=== PATIENT | male | born 1935 | race Caucasian/White ===

== ENCOUNTER 2016-06-02 03:07 | Inpatient (IN) ==
--- NOTE | 2016-06-02 03:25 | Emergency Department Note ---
IEsperanza Kasabria, am scribing for, and in the presence of, Dileep Acosta MD 03:18. Dave Restrepo Robert M, MD, personally performed the services described in this documentation, ascribed by Deep Mata in my presence, and it is both accurate and complete 324 . Arrival - Arrival Stated Complaint: resp failure Limitations: Altered Mental Status (intubated ) Source: Patient, RN Notes Reviewed - History of Present Illness HPI Narrative: This is a 81 y/o white male presenting to the ED as a transfer from [facility] for higher care with respiratory failure and pneumonia. Pt is intubated and nonverbal. His PMHx is consistent with gout and CHF. Consistency: constant Severity: moderate Review of System - Review of System ROS unobtainable: due to endotracheal tube (limited ) 12 point system: reviewed and no additional remarkable complaints except as stated - Review of System Constitutional: Absent: fever Respiratory: Present: respiratory distress (intubated ) Skin: Absent: rash Allergic/Immunologic: Absent: facial swelling Exam Vital Signs: Vital Signs Temperature 97.1 F L 06/02/16 03:08 Pulse Rate 104 H 06/02/16 03:20 Respiratory Rate 13 06/02/16 03:20 Blood Pressure 101/62 06/02/16 03:08 O2 Sat by Pulse Oximetry 100 06/02/16 03:08 - General General appearance: in distress - Head Head exam: Present: atraumatic, normocephalic, normal inspection - ENT ENT exam: Present: normal exam, normal oropharynx, mucous membranes moist, TM's normal bilaterally, normal external ear exam - Neck Neck exam: Present: normal inspection, full ROM, trachea midline. Absent: tenderness - Respiratory Respiratory exam: Present: normal lung sounds bilaterally - Cardiovascular Cardiovascular exam: Present: regular rate, normal rhythm, normal heart sounds - Neurological Exam Neurological exam: Absent: alert, oriented X3 - Skin Skin exam: Present: warm, dry, intact, normal color. Absent: rash Course - Consultations Consultation #1: Dr. Maureen Canales was paged and will admit the patient to the hospitalist service. Time: 03:24 Disposition Clinical Impression: Respiratory failure, Right lower lobe pneumonia Case discussed with: patient Disposition: Still a Patient Condition: Guarded Time of Disposition: 03:25
[2016-06-02 03:32] LABS: ABG Base Excess -4.5 MMOL/L (-2.5-2.5); ABG HCO3 24.5 MMOL/L (20-26); ABG Oxygen Saturation 99.1 % (95-100); ABG PCO2 62.9 MM HG (35-48); ABG PO2 281.2 MM HG (80-95); ABG TCO2 26.5 MMOL/L (23-27)
[2016-06-02 03:34] LABS: ABG PH 7.209 (7.35-7.45)
[2016-06-02] MEDS ORDERED: PROPOFOL 1,000 MG/100 ML BOTTLE IV ONE ×2 (03:45→05:54)
[2016-06-02] MEDS ORDERED: VECURONIUM 10 MG VIAL IV ONE (03:45)
[2016-06-02] MEDS ORDERED: SODIUM CHLORIDE 0.9% 1,000 ML IV STA (03:51)
[2016-06-02] MEDS ORDERED: VECURONIUM 10 MG VIAL IV STA (03:51)
[2016-06-02] MEDS ORDERED: ACETAMINOPHEN 325 MG TABLET PO PRN (04:03)
--- NOTE | 2016-06-02 04:10 | Hospitalist History & Physical ---
Assessment and Plan - Time spent with patient Time spent with patient: Greater than 30 minutes (1) Right lower lobe pneumonia Status: Acute Assessment and plan: right lower lobe pneumonia noted on chest x-ray. Patient started on Levaquin and Azactam. Follow-up sputum culture and blood cultures. Urine streptococcal antigen ordered. Current Visit: Yes Qualifiers: Pneumonia type: due to unspecified organism Qualified Code(s): J18.1 - Lobar pneumonia, unspecified organism (2) Respiratory failure Status: Acute Current Visit: Yes Qualifiers: Chronicity: acute on chronic Respiratory failure complication: hypoxia Qualified Code(s): J96.21 - Acute and chronic respiratory failure with hypoxia (3) SAIMA (acute kidney injury) Status: Acute Assessment and plan: Likely secondary to pneumonia and prerenal azotemia with dehydration. IV fluids ordered. Current Visit: Yes (4) COPD (chronic obstructive pulmonary disease) Status: Chronic Assessment and plan: Chronic emphysema and chronic respiratory failure on home oxygen at 2 L/min. 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 Follows up with primary care physician in [place]. Duo nebs and antibiotics ordered will add steroids. Current Visit: Yes (5) Dementia Status: Chronic Current Visit: Yes Qualifiers: Dementia type: Alzheimer's disease Alzheimer's disease onset: early-onset Dementia behavioral disturbance: without behavioral disturbance Qualified Code(s): G30.0 - Alzheimer's disease with early onset; F02.80 - Dementia in other diseases classified elsewhere without behavioral disturbance (6) Protein-calorie malnutrition, moderate Status: Chronic Current Visit: Yes (7) HTN (hypertension) Status: Chronic Current Visit: Yes Qualifiers: Hypertension type: essential hypertension Qualified Code(s): I10 - Essential (primary) hypertension (8) Hypothyroid Status: Acute Current Visit: Yes Qualifiers: Hypothyroidism type: acquired Qualified Code(s): E03.9 - Hypothyroidism, unspecified History of Present Illness Chief complaint: Acute respiratory failure History of present illness: Mr. Oconnell is a 81 year old male transferred to the emergency department [facility] from [facility] with acute respiratory failure requiring intubation and mechanical ventilation. The patient is found to have a right lower lobe pneumonia on chest x-ray. His blood work and imaging was reviewed from [facility] emergency room. He is being admitted to the hospitalist service to the intensive care unit for continued ventilator management and pulmonary support and treatment of his right lower lobe pneumonia. I was unable to find any old records in our computer system. The patient is unable to provide any history due to endotracheal intubation and mechanical ventilation. His daughter and granddaughter were in the ER and provided most of the history. Patient's daughter is his primary caregiver and his surrogate decision maker and power of blower room attendant. She reports that Mr. Oconnell has a history of dementia, emphysema, hypertension, hypothyroidism. She reports that he has been having trouble breathing over the last several days and having fever and chills with cold sweats. She had been giving him his regular breathing treatments including albuterol and Spiriva at home. The patient has a history of chronic respiratory failure on oxygen at 2 L/min at all times. This evening his respirations became more labored and he was brought to the emergency department in [place] where he was found to have right lower lobe pneumonia and acute respiratory failure requiring intubation. Sputum production is noted in the ET tube and suction. An endotracheal aspirate has been sent for culture. The patient is intubated and sedated and appears comfortable at this time. Home medication list is not available at this time however it will be collected from the [facility] pharmacy in [place]. Allergies Allergy/AdvReac Type Severity Reaction Status Date / Time No Known Allergies Allergy Unverified 06/02/16 03:19 Medical,Surgical,& Family Hx - Medical History Cardio: History of: Hypertension Endocrine: History of: Thyroid Disorder Rheumatology: History of;: Gout Respiratory: History of: COPD (Emphysema), Respiratory Problems - Surgical History HEENT Surgeries: Surgical HX of: Thyroid Surgery - Family History Family History: Reports;: Family Hypertension - Social History Smoking Status: Unknown if ever smoked Frequency of Alcohol Use: Unknown Type of Drug Use: Unknown Marital Status: Lives With:: Children Functional capacity: independent ambulation ROS unobtainable: due to endotracheal tube Exam - Constitutional Vitals: Period Temp Pulse Resp BP Sys/Grimes Pulse Ox Last 24 Hr 97.1 F-97.1 F 104-104 12-13 101-101/62-62 100 Exam: Constitutional System: Mild distress. No tremulousness. Intubated and sedated. Patient is a thin and frail-appearing Head: Normocephalic, atraumatic. Ears, Nose and Throat System: No pain or tenderness. No epistaxis or discharge. ET tube in place Eyes System: Pupils equal, round, and reactive. Extraocular muscles intact. Neck: Supple, without adenopathy, No jugular venous distention. No thyromegaly, neck mass, or prior surgery apparent. Respiratory System: Chest with rhonchi in the right lower lobe to auscultation. Cardiovascular System: Heart with regular rate and rhythm. No murmur. GI System: Abdomen soft, nontender. Normo active bowel sounds present. Musculoskeletal System: limbs with no pedal edema. Full distal pulses. Neurological System: Unable to assess secondary to intubation and sedation Psychiatric System: Conversation is not possible due to intubation Results - Labs CBC & BMP: 06/02/16 03:18 06/02/16 03:18 Lab Results: I have reviewed the past 24 hour labs - Diagnostic Findings Procedure: Chest x-ray: image reviewed by me
[2016-06-02 04:23] LABS: Basophils # 0.1 10*3/uL (0.0-0.2); Basophils % 0.7 % (0.0-0.8); Eosinophils # 0.1 10*3/uL (0.0-0.87); Hematocrit 44.9 VOL% (42.0-52.0); Hemoglobin 14.7 GM/DL (14.0-18.0); Immature Granulocytes % 0.4 %; Immature Granulocytes Absolute 0.03 #; Lymphocytes # 0.9 10*3/uL (1.4-4.0); Lymphocytes % 13.3 % (21.2-54.2); Mean Corpuscular HGB Conc 32.7 GM/DL (32-36); Mean Corpuscular Hemoglobin 30 PG (27-34); Mean Corpuscular Volume 92.4 FL (87-102); Mean Platelet Volume 10.5 FL (9.6-12.0); Monocytes # 0.6 10*3/uL (0.11-0.8); Monocytes % 9.3 % (1.7-12.7); Neutrophils % 75.3 % (38.7-73.9); Platelet Count 161 T/CUMM (130-400); Red Blood Count 4.86 MC/CUMM (3.8-5.5); Red Cell Distribution Width 15.9 % (9.3-17.3); White Blood Count 6.7 T/CUMM (4-12)
[2016-06-02 04:24] LABS: Apearance,Urine CLEAR (Clear); Bacteria,Urine Occasional /HPF (Few); Bilirubin,Urine Negative (Negative); Blood, Urine Moderate mg/dL (Negative); Glucose,Urine (UA) Negative (Negative); Ketones,Urine Negative (Negative); Nitrite,Urine Negative (Negative); Protein,Urine 30 MG/DL; RBC,Urine 4 /HPF (0-4); Squamous Epithelial Cell,Urine Occasional /HPF (0-10); Urine Color Yellow (Yellow); Urine Specific Gravity 1.015 (1.001-1.035); WBC,Urine 1 /HPF (0-6)
[2016-06-02 04:32] LABS: Albumin 2.8 G/DL (3.4-5.0); Calcium 7.7 MG/DL (8.5-10.1); Magnesium 2.1 MG/DL (1.8-2.4); Osmolality,Calculated 308.3 MOS/KG (273-304); Total Protein 5.7 G/DL (6.4-8.3)
[2016-06-02] MEDS ORDERED: AZTREONAM 2,000 MG in SODIUM CHLORIDE 0.9% 100 ML IV ONE ×2 (05:00→08:00)
[2016-06-02] MEDS: PROPOFOL 1,000 MG/100 ML BOTTLE IV SCH ×2 (05:00→18:25)
[2016-06-02 05:01] LABS: Band Neutrophils 14 % (0-10); Eosinophils 1 % (0-10); Lymphocytes 15 % (20-55); Segmented Neutrophils 65 % (50-85); Total Cells Counted 100
[2016-06-02 05:02] LABS: Hypochromasia 1+; Platelet Estimate Normal
[2016-06-02] MEDS: DEXTROSE 5% NACL 0.45% 1,000 ML IV SCH ×4 (05:45→21:12)
[2016-06-02] MEDS ORDERED: LORazepam 2 MG/1 ML VIAL IV PRN (05:54)
[2016-06-02] MEDS: LEVOFLOXACIN INJ 750 MG in PREMIX 1 EACH IV SCH (05:54)
[2016-06-02] MEDS: methylPREDNISolone SOD SUC 125 MG/2 ML VIAL IV SCH ×3 (06:43→21:13)
[2016-06-02] MEDS ORDERED: GLUCAGON 1 MG VIAL IM PRN (06:54)
--- NOTE | 2016-06-02 07:08 | XRay Report ---
XR chest 1V portable Indication: Tube placement Comparison: 02 June 2016 at 1:40 AM Findings: The heart and mediastinum are similar in size and configuration. Endotracheal tube is unchanged in position The pulmonary vascularity is increased especially centrally. There is increased right upper lung and right lower lung densities when compared to previous exam. No other lung infiltrates, effusions, pneumothorax or other abnormality is demonstrated. Impression: Stable appearance of endotracheal tube. Increased to the right upper lung and right lower lung density could indicate atelectasis or infiltrate. PROCEDURE INTERPRETED AT [facility] DEPARTMENT OF RADIOLOGY Final Report Signed by: Dr. Julio Pena
[2016-06-02] MEDS: ALBUTEROL/IPRATROPIUM 3 ML NEB RESP TX SCH ×3 (07:31→19:35)
--- NOTE | 2016-06-02 07:38 | Pulmonology Consult Note ---
Assessment and Plan (1) Respiratory failure Status: Acute Assessment and plan: Patient has had CO2 retention and was intubated on the ventilator now. Current Visit: Yes Qualifiers: Chronicity: acute on chronic Respiratory failure complication: hypoxia Qualified Code(s): J96.21 - Acute and chronic respiratory failure with hypoxia (2) Right lower lobe pneumonia Status: Acute Assessment and plan: The patient has right lower lobe consolidation and is on IV antibiotics. Current Visit: Yes Qualifiers: Pneumonia type: due to unspecified organism Qualified Code(s): J18.1 - Lobar pneumonia, unspecified organism (3) SAIMA (acute kidney injury) Status: Acute Assessment and plan: His creatinine is up to 2.6. Current Visit: Yes (4) COPD (chronic obstructive pulmonary disease) Status: Chronic Assessment and plan: Patient looks like he has severe COPD. Current Visit: Yes (5) Dementia Status: Chronic Assessment and plan: Patient has a history of dementia Current Visit: Yes Qualifiers: Dementia type: Alzheimer's disease Alzheimer's disease onset: early-onset Dementia behavioral disturbance: without behavioral disturbance Qualified Code(s): G30.0 - Alzheimer's disease with early onset; F02.80 - Dementia in other diseases classified elsewhere without behavioral disturbance (6) Protein-calorie malnutrition, moderate Status: Chronic Assessment and plan: The patient will require supplemental nutrition. Current Visit: Yes (7) HTN (hypertension) Status: Chronic Assessment and plan: Patient has a history of hypertension. Current Visit: Yes Qualifiers: Hypertension type: essential hypertension Qualified Code(s): I10 - Essential (primary) hypertension (8) Hypothyroid Status: Acute Assessment and plan: Patient will continue thyroid replacement. Current Visit: Yes Qualifiers: Hypothyroidism type: acquired Qualified Code(s): E03.9 - Hypothyroidism, unspecified History of Present Illness Chief complaint: Ventilator management History of present illness: Mr. Oconnell is a 81 year old white male that apparently has a long history of COPD and went to the hospital at [facility] and was found to be in respiratory failure and was intubated. He was felt to have a pneumonia. Apparently he had been short of breath and having some congestion for several days. According to his family he has a history of significant COPD and dementia along with hypertension and hypothyroidism. He apparently has home oxygen. It is unclear about any other medicines. He is now intubated and on the ventilator. Allergies Allergy/AdvReac Type Severity Reaction Status Date / Time No Known Allergies Allergy Unverified 06/02/16 03:19 ROS unobtainable: due to endotracheal tube (He is unable to give any history) Exam (Pulmonay) H&P - Constitutional Vitals: Period Temp Pulse Resp BP Sys/Grimes Pulse Ox Last 24 Hr 85-93 15-29 89-110/57-65 98-100 General appearance: no acute distress (Patient is sedated on the ventilator), cachectic - Head Head exam: Present: normal inspection, normocephalic - Eye Eye exam: Present: EOMI, other (He has bilateral arcus). Absent: scleral icterus Pupils: Present: JOZEF - ENT ENT exam: Present: normal exam, other (ET tube is in good position) - Neck Neck exam: Absent: tenderness, thyromegaly - Respiratory Respiratory exam: Present: decreased breath sounds, prolonged expiratory phase, rhonchi - Cardiovascular Cardiovascular exam: Present: regular rate and rhythm, tachycardia - GI/Abdominal GI/Abdominal exam: Present: hypoactive bowel sounds, soft. Absent: organomegaly , tenderness - Extremities Exam Extremities exam: Absent: calf tenderness, edema - Neurological Exam Neurological exam: Present: other (Sedated on the ventilator) - Skin Skin exam: Present: warm, dry Medical,Surgical,& Family Hx - Medical History Cardio: History of: Hypertension Endocrine: History of: Thyroid Disorder Rheumatology: History of;: Gout Respiratory: History of: COPD (Emphysema), Respiratory Problems - Surgical History HEENT Surgeries: Surgical HX of: Thyroid Surgery - Family History Family History: Reports;: Family Hypertension - Social History Smoking Status: Former smoker Frequency of Alcohol Use: Unknown Type of Drug Use: Unknown Results - Labs CBC & BMP: 06/02/16 03:18 06/02/16 03:18 Labs: PO2 is 281 with a PCO2 of 62 and a pH of 7.2 - Diagnostic Findings Procedure: Chest x-ray: image reviewed by me, report reviewed by me (Chest x- ray shows severe COPD changes with some infiltrates in the bases)
--- NOTE | 2016-06-02 09:14 | EKG Report ---
Stationary ECG Study [facility] ER Test Date: 06/02/2016 3:29:04 AM Pat Name: MARYBETH GUERRA Department: Room: 105 Gender: M Pasting Inspector: : 1935 Requested by: Dileep Acosta Order Number: [id number] Reading MD: BEN CLAYTON Intervals [place] Rate: 100 P: 79 IN: 199 QRS: -30 QRSD: 100 T: 76 QT: 380 QTc: 437 Interpretive Statements SINUS TACHYCARDIA POSSIBLE ANTERIOR MYOCARDIAL INFARCTION, PROBABLY OLD IF PRESENT Electronically Signed On 06-07-16 10:45:01 CDT by BEN CLAYTON [email or web address]
[2016-06-02] MEDS: POTASSIUM CHLORIDE 20 MEQ/15 ML UDCUP PER TUBE SCH ×3 (09:30→18:24)
[2016-06-02] MEDS: ENOXAPARIN 30 MG/0.3 ML SYRINGE SUBCUT SCH (09:42)
[2016-06-02 09:56] LABS: ABG Base Excess -7.1 MMOL/L (-2.5-2.5); ABG HCO3 18.7 MMOL/L (20-26); ABG Oxygen Saturation 92.6 % (95-100); ABG PCO2 33.4 MM HG (35-48); ABG PH 7.336 (7.35-7.45); ABG PO2 62.3 MM HG (80-95); ABG TCO2 15.4 MMOL/L (23-27)
[2016-06-02] MEDS: DESITIN 4OZ/NYSTATIN 15 GRAM MIXTURE PASTE TOP SCH ×2 (12:36→21:13)
[2016-06-02] MEDS: AZTREONAM 1,000 MG in SODIUM CHLORIDE 0.9% 100 ML IV SCH ×2 (14:35→21:12)
[2016-06-03] MEDS: ALBUTEROL/IPRATROPIUM 3 ML NEB RESP TX SCH ×4 (00:14→19:19)
[2016-06-03] MEDS: DEXTROSE 5% NACL 0.45% 1,000 ML IV SCH ×6 (01:39→17:47)
[2016-06-03] MEDS: AZTREONAM 1,000 MG in SODIUM CHLORIDE 0.9% 100 ML IV SCH ×4 (01:39→20:42)
[2016-06-03 03:57] LABS: ABG Base Excess -5.1 MMOL/L (-2.5-2.5); ABG HCO3 20.3 MMOL/L (20-26); ABG Oxygen Saturation 99.6 % (95-100); ABG PCO2 37.4 MM HG (35-48); ABG TCO2 17.8 MMOL/L (23-27); Allen Test Positive; Pt O2 Delivery Device Ventilator
[2016-06-03 04:11] LABS: Basophils % 0.3 % (0.0-0.8); Eosinophils % 0.1 % (0.00-10.9); Hematocrit 38.5 VOL% (42.0-52.0); Immature Granulocytes % 1.1 %; Immature Granulocytes Absolute 0.13 #; Lymphocytes # 0.7 10*3/uL (1.4-4.0); Lymphocytes % 5.7 % (21.2-54.2); Mean Corpuscular HGB Conc 33.8 GM/DL (32-36); Mean Corpuscular Hemoglobin 30 PG (27-34); Mean Corpuscular Volume 87.9 FL (87-102); Monocytes # 0.5 10*3/uL (0.11-0.8); Monocytes % 3.9 % (1.7-12.7); Neutrophils # 10.3 10*3/uL (1.4-7.4); Neutrophils % 88.9 % (38.7-73.9); Platelet Count 155 T/CUMM (130-400); Red Blood Count 4.38 MC/CUMM (3.8-5.5); Red Cell Distribution Width 15.6 % (9.3-17.3); White Blood Count 11.5 T/CUMM (4-12)
[2016-06-03 04:39] LABS: Calcium 8.1 MG/DL (8.5-10.1); Osmolality,Calculated 296.8 MOS/KG (273-304); Potassium 3.6 MMOL/L (3.5-5.1)
[2016-06-03 05:13] LABS: Platelet Estimate Normal
[2016-06-03] MEDS: methylPREDNISolone SOD SUC 125 MG/2 ML VIAL IV SCH ×3 (06:15→22:28)
[2016-06-03] MEDS: POTASSIUM CHLORIDE 20 MEQ/15 ML UDCUP PER TUBE PRN ×2 (06:16→10:04)
[2016-06-03] MEDS: PROPOFOL 1,000 MG/100 ML BOTTLE IV SCH ×2 (06:25→20:40)
--- NOTE | 2016-06-03 07:50 | Pulmonology Progress Note ---
Pulmonary - PN: Subj Interval history: Patient is an 81-year-old white man that has a history of COPD and came in with respiratory distress and pneumonia. He was intubated and transferred here. He has been reasonably stable on the ventilator and his oxygen level has improved. He is sedated and comfortable on the ventilator now. He appears to have stable vital signs. He still has thick secretions in bilateral infiltrates. Will plan a therapeutic bronchoscopy today. Exam (Progress Note) - Constitutional Vitals: Period Temp Pulse Resp BP Sys/Grimes Pulse Ox Last 24 Hr 97.0 F-98.9 F 74-103 12-24 89-127/51-74 91-100 Exam: General appearance: no acute distress (Patient is sedated on the ventilator), cachectic. He does have stable vital signs. - Head Head exam: Present: normal inspection, normocephalic - Eye Eye exam: Present: EOMI, other (He has bilateral arcus). Absent: scleral icterus Pupils: Present: JOZEF - ENT ENT exam: Present: normal exam, other (ET tube is in good position) - Neck Neck exam: Absent: tenderness, thyromegaly - Respiratory Respiratory exam: Present: decreased breath sounds, prolonged expiratory phase, rhonchi. He does have better breath sounds. - Cardiovascular Cardiovascular exam: Present: regular rate and rhythm, tachycardia - GI/Abdominal GI/Abdominal exam: Present: hypoactive bowel sounds, soft. Absent: organomegaly , tenderness - Extremities Exam Extremities exam: Absent: calf tenderness, edema - Neurological Exam Neurological exam: Present: other (Sedated on the ventilator) - Skin Skin exam: Present: warm, dry Results - Labs CBC & BMP: 06/03/16 03:58 06/03/16 03:58 Labs: His PO2 is 151 with a PCO2 of 37 and pH of 7.34 - Diagnostic Findings Procedure: Chest x-ray: image reviewed by me, report reviewed by me (Chest x- ray still has bibasilar infiltrates.) Assessment and Plan (1) Respiratory failure Status: Acute Assessment and plan: Patient has had CO2 retention and was intubated on the ventilator now. His oxygenation is improving any stable on the ventilator. Current Visit: Yes Qualifiers: Chronicity: acute on chronic Respiratory failure complication: hypoxia Qualified Code(s): J96.21 - Acute and chronic respiratory failure with hypoxia (2) Right lower lobe pneumonia Status: Acute Assessment and plan: The patient has right lower lobe consolidation and is on IV antibiotics. He does have a lot of thick secretions and will proceed with a therapeutic bronchoscopy Current Visit: Yes Qualifiers: Pneumonia type: due to unspecified organism Qualified Code(s): J18.1 - Lobar pneumonia, unspecified organism (3) SAIMA (acute kidney injury) Status: Acute Assessment and plan: His creatinine has improved and is down to 1.5 today. Current Visit: Yes (4) COPD (chronic obstructive pulmonary disease) Status: Chronic Assessment and plan: Patient looks like he has severe COPD. Current Visit: Yes (5) Dementia Status: Chronic Assessment and plan: Patient has a history of dementia Current Visit: Yes Qualifiers: Dementia type: Alzheimer's disease Alzheimer's disease onset: early-onset Dementia behavioral disturbance: without behavioral disturbance Qualified Code(s): G30.0 - Alzheimer's disease with early onset; F02.80 - Dementia in other diseases classified elsewhere without behavioral disturbance (6) Protein-calorie malnutrition, moderate Status: Chronic Assessment and plan: The patient will require supplemental nutrition. Current Visit: Yes (7) HTN (hypertension) Status: Chronic Assessment and plan: Patient has a history of hypertension. He is hemodynamically stable. Current Visit: Yes Qualifiers: Hypertension type: essential hypertension Qualified Code(s): I10 - Essential (primary) hypertension (8) Hypothyroid Status: Acute Assessment and plan: Patient will continue thyroid replacement. Current Visit: Yes Qualifiers: Hypothyroidism type: acquired Qualified Code(s): E03.9 - Hypothyroidism, unspecified
--- NOTE | 2016-06-03 08:28 | Hospitalist Progress Note ---
Assessment and Plan (1) Respiratory failure Status: Acute Assessment and plan: The patient is admitted to the hospital with respiratory failure due to pneumonia. We continue the patient on IV antibiotics. The patient left therapeutic bronchoscopy today. We are continuing nutrition with tube feedings. Will recheck electrolytes arterial blood gas and CBC in the morning. Current Visit: Yes Qualifiers: Chronicity: acute on chronic Respiratory failure complication: hypoxia Qualified Code(s): J96.21 - Acute and chronic respiratory failure with hypoxia (2) Right lower lobe pneumonia Status: Acute Current Visit: Yes Qualifiers: Pneumonia type: due to unspecified organism Qualified Code(s): J18.1 - Lobar pneumonia, unspecified organism (3) COPD (chronic obstructive pulmonary disease) Status: Chronic Current Visit: Yes (4) Dementia Status: Chronic Current Visit: Yes Qualifiers: Dementia type: Alzheimer's disease Alzheimer's disease onset: early-onset Dementia behavioral disturbance: without behavioral disturbance Qualified Code(s): G30.0 - Alzheimer's disease with early onset; F02.80 - Dementia in other diseases classified elsewhere without behavioral disturbance (5) Protein-calorie malnutrition, moderate Status: Chronic Current Visit: Yes Hospitalist: Subjective Interval history: The patient is breathing comfortably on the ventilator. He is sedated, orally intubated, and mechanically ventilated. Dr. Martínez plans therapeutic bronchoscopy today. The patient's nurse states that he has had copious sputum production from the ET tube. The nurse states that tube feedings are well tolerated. Exam - Constitutional Vitals: Period Temp Pulse Resp BP Sys/Grimes Pulse Ox Last 24 Hr 97.8 F-98.9 F 74-103 12-22 89-127/51-74 91-100 Exam: Constitutional System: Mild distress. No tremulousness. The patient is orally intubated and mechanically ventilated. He is sedated with Diprivan Head: Normocephalic, atraumatic. Ears, Nose and Throat System: No evidence of Otitis or Mastoiditis. No epistaxis or discharge Eyes System: Pupils equal, round, and reactive. Extraocular muscles intact. Neck: Supple, without adenopathy, No jugular venous distention. No thyromegaly , neck mass, or prior surgery apparent. Respiratory System: Chest bilateral rhonchi to auscultation. Cardiovascular System: Heart with regular rate and rhythm. No murmur. GI System: Abdomen soft, nontender. Normo active bowel sounds present. Musculoskeletal System: limbs with no pedal edema. Full distal pulses. Results - Labs CBC & BMP: 06/03/16 03:58 06/03/16 03:58 Lab Results: I have reviewed the past 24 hour labs
--- NOTE | 2016-06-03 08:36 | XRay Report ---
History: Respiratory failure Date: 06/03/2016 Study: Chest x-ray AP portable Comparison exam: 06/02/2016 The endotracheal tube tip is nearing the ximena and can be safely withdrawn 1 cm. The nasogastric tubes well positioned. The cardiomediastinal silhouette is unchanged. There is continued patchy and hazy atelectasis/infiltrate in the lung bases. These changes are improved on the right and slightly increased on the left. There is continued patchy infiltrate in the right upper lung. There is at least mild bilateral pleural effusion, left more than right, as before. There is no pneumothorax. Osseous structures are unchanged. Impression: Continued bibasilar atelectasis/infiltrate, slightly increased on the left and slightly improved on the right PROCEDURE INTERPRETED AT [facility] DEPARTMENT OF RADIOLOGY Final Report Signed by: Dr. Bisi Wade
--- NOTE | 2016-06-03 10:00 | Operative Note ---
Date of procedure: 06/03/16 Pre-op diagnosis: Respiratory failure with bibasilar infiltrate Post-op diagnosis: other (Mucous plugging and retained secretions) Procedure: The patient is on the ventilator in the ICU. He has COPD with bibasilar infiltrates. A therapeutic bronchoscopy will be done to clear airways. The patient is sedated and comfortable on the ventilator. Procedure: The fiberoptic bronchoscope was passed through the ET tube into the airways. The airways were quickly identified and specimens obtained. Findings: The ET tube is in good position in the trachea. The main bronchi are open. There is some thick white mucus and plugs seen bilaterally that were washed and cleared. Washings were sent for culture. The right upper lobe, right middle lobe, right lower lobe are all open. The left upper lobe, left lower lobe, and lingula are open. There are no endobronchial lesions seen. There is some bronchitis present. Once the airways were clear the procedure was stopped. He tolerated the procedure well without problems. Impression: Mucous plugging and retained secretions with bibasilar infiltrate. Plan: We will continue weaning from the ventilator. Anesthesia: conscious sedation Surgeon / Physician: Amanuel Martínez Estimated blood loss: none Specimens: other (Washings were sent for culture) Condition: stable Disposition: ICU Results - Labs CBC & BMP: 06/03/16 03:58 06/03/16 03:58 Discharge Plan - Discharge Medications No Action Cholecalciferol (Vitamin D3) [Vitamin D3] 50,000 unit PO Q7DAY Zolpidem Tartrate 5 mg PO BEDTIME Clorazepate [Tranxene] 3.75 mg PO BID hydroCHLOROthiazide [Hydrochlorothiazide] 25 mg PO DAILY Folic Acid Tab 1 mg PO DAILY Donepezil [Aricept] 10 mg PO BEDTIME Levothyroxine Tab [Synthroid Tab] 75 mcg PO DAILY@0700 Venlafaxine HCl [Venlafaxine XR] 75 mg PO BID W/MEALS Quetiapine Fumarate 100 mg PO DAILY Omeprazole 40 mg PO DAILY amLODIPine [Norvasc] 5 mg PO DAILY Memantine HCl 10 mg PO BID Allopurinol 300 mg PO DAILY - Follow Up or Referral - Forms/Instructions
[2016-06-03] MEDS: ENOXAPARIN 30 MG/0.3 ML SYRINGE SUBCUT SCH (10:04)
[2016-06-03] MEDS: DESITIN 4OZ/NYSTATIN 15 GRAM MIXTURE PASTE TOP SCH ×2 (10:04→20:42)
[2016-06-04] MEDS: ALBUTEROL/IPRATROPIUM 3 ML NEB RESP TX SCH ×4 (00:49→19:22)
[2016-06-04] MEDS: DEXTROSE 5% NACL 0.45% 1,000 ML IV SCH ×6 (01:38→21:23)
[2016-06-04 02:55] LABS: ABG Base Excess -4.1 MMOL/L (-2.5-2.5); ABG HCO3 20.9 MMOL/L (20-26); ABG Oxygen Saturation 94.5 % (95-100); ABG PCO2 36.6 MM HG (35-48); ABG PH 7.361 (7.35-7.45); ABG PO2 68.2 MM HG (80-95); ABG TCO2 18.2 MMOL/L (23-27); Allen Test Positive; Pt O2 Delivery Device Ventilator
[2016-06-04] MEDS: AZTREONAM 1,000 MG in SODIUM CHLORIDE 0.9% 100 ML IV SCH ×4 (03:21→21:22)
[2016-06-04] MEDS: LEVOFLOXACIN INJ 750 MG in PREMIX 1 EACH IV SCH (04:21)
[2016-06-04 05:04] LABS: Basophils % 0.3 % (0.0-0.8); Hematocrit 39.1 VOL% (42.0-52.0); Hemoglobin 13.4 GM/DL (14.0-18.0); Immature Granulocytes % 6.7 %; Lymphocytes % 6.9 % (21.2-54.2); Mean Corpuscular HGB Conc 34.3 GM/DL (32-36); Mean Corpuscular Hemoglobin 31 PG (27-34); Mean Corpuscular Volume 89.1 FL (87-102); Mean Platelet Volume 11.1 FL (9.6-12.0); Monocytes # 0.7 10*3/uL (0.11-0.8); Monocytes % 4.8 % (1.7-12.7); NRBC # 0.03 10*3/uL; Neutrophils # 12.2 10*3/uL (1.4-7.4); Neutrophils % 81.3 % (38.7-73.9); Platelet Count 157 T/CUMM (130-400); Red Blood Count 4.39 MC/CUMM (3.8-5.5); Red Cell Distribution Width 15.9 % (9.3-17.3)
[2016-06-04 05:39] LABS: Magnesium 2.2 MG/DL (1.8-2.4); Osmolality,Calculated 292.1 MOS/KG (273-304); Potassium 3.9 MMOL/L (3.5-5.1)
[2016-06-04 05:42] LABS: Band Neutrophils 2 % (0-10); Lymphocytes 8 % (20-55); Myelocytes 1 %; Platelet Estimate Adequate; Segmented Neutrophils 83 % (50-85); Total Cells Counted 100
[2016-06-04] MEDS: POTASSIUM CHLORIDE 20 MEQ/15 ML UDCUP PER TUBE PRN (06:38)
[2016-06-04] MEDS: PROPOFOL 1,000 MG/100 ML BOTTLE IV SCH ×4 (06:38→23:18)
[2016-06-04] MEDS: methylPREDNISolone SOD SUC 125 MG/2 ML VIAL IV SCH ×3 (06:38→21:22)
--- NOTE | 2016-06-04 07:35 | XRay Report ---
XR chest 1V portable Indication: Shortness of breath Comparison: 03 June 2016 Findings: The heart and mediastinum are stable in size and configuration. The lines and tubes are unchanged in position. The pulmonary vascularity is normal in caliber. Faint areas of increased density are seen in the right upper lobe and right lower lung similar to previous. No other lung infiltrates, effusions, pneumothorax or other abnormality is demonstrated. Impression: No significant change PROCEDURE INTERPRETED AT [facility] DEPARTMENT OF RADIOLOGY Final Report Signed by: Dr. Julio Pena
--- NOTE | 2016-06-04 07:43 | Hospitalist Progress Note ---
Assessment and Plan (1) Respiratory failure Status: Acute Assessment and plan: The patient is admitted to the hospital with respiratory failure due to pneumonia. We continue the patient on IV antibiotics. We are continuing nutrition with tube feedings. Will recheck electrolytes arterial blood gas and CBC in the morning. Current Visit: Yes Qualifiers: Chronicity: acute on chronic Respiratory failure complication: hypoxia Qualified Code(s): J96.21 - Acute and chronic respiratory failure with hypoxia (2) Right lower lobe pneumonia Status: Acute Current Visit: Yes Qualifiers: Pneumonia type: due to unspecified organism Qualified Code(s): J18.1 - Lobar pneumonia, unspecified organism (3) COPD (chronic obstructive pulmonary disease) Status: Chronic Current Visit: Yes (4) Dementia Status: Chronic Current Visit: Yes Qualifiers: Dementia type: Alzheimer's disease Alzheimer's disease onset: early-onset Dementia behavioral disturbance: without behavioral disturbance Qualified Code(s): G30.0 - Alzheimer's disease with early onset; F02.80 - Dementia in other diseases classified elsewhere without behavioral disturbance (5) Protein-calorie malnutrition, moderate Status: Chronic Current Visit: Yes Hospitalist: Subjective Interval history: The patient is resting quietly on the ventilator today. He had bronchoscopy yesterday to clear secretions of mucous plugs. The patient is tolerating some CPAP trial. The patient appears to have withdrawn affect and prefers a position. Exam - Constitutional Vitals: Period Temp Pulse Resp BP Sys/Grimes Pulse Ox Last 24 Hr 97.2 F-98.4 F 50-96 12-24 99-152/52-101 91-100 Exam: Constitutional System: Mild distress. No tremulousness. The patient is orally intubated and mechanically ventilated. He is sedated with Diprivan Head: Normocephalic, atraumatic. Ears, Nose and Throat System: No evidence of Otitis or Mastoiditis. No epistaxis or discharge Eyes System: Pupils equal, round, and reactive. Extraocular muscles intact. Neck: Supple, without adenopathy, No jugular venous distention. No thyromegaly , neck mass, or prior surgery apparent. Respiratory System: Chest bilateral rhonchi to auscultation. Cardiovascular System: Heart with regular rate and rhythm. No murmur. GI System: Abdomen soft, nontender. Normo active bowel sounds present. Musculoskeletal System: limbs with no pedal edema. Full distal pulses. Results - Labs CBC & BMP: 06/04/16 04:45 06/04/16 04:45 Lab Results: I have reviewed the past 24 hour labs - Diagnostic Findings Procedure: Chest x-ray: image reviewed by me (Decreased infiltrates in the right middle and left upper lobes. Right lower lobe basilar infiltrate remains)
--- NOTE | 2016-06-04 08:00 | Pulmonology Progress Note ---
Pulmonary - PN: Subj Interval history: Patient is an 81-year-old white man that has a history of COPD and came in with respiratory distress and pneumonia. He was intubated and transferred here. He has been reasonably stable on the ventilator. He does have bibasilar infiltrates worse on the right. His sputum is growing gram-negative rods. He had a therapeutic bronchoscopy yesterday he still has a lot of secretions. His PO2 is only 68 on 50% today. He does get a little restless at times. He will continue with CPAP trials. His renal function is better with a creatinine of 1.2 Exam (Progress Note) - Constitutional Vitals: Period Temp Pulse Resp BP Sys/Grimes Pulse Ox Last 24 Hr 97.2 F-98.4 F 50-96 12-24 99-152/52-101 91-100 Exam: General appearance: no acute distress (Patient is sedated on the ventilator), cachectic. He does have stable vital signs. - Head Head exam: Present: normal inspection, normocephalic - Eye Eye exam: Present: EOMI, other (He has bilateral arcus). Absent: scleral icterus Pupils: Present: JOZEF - ENT ENT exam: Present: normal exam, other (ET tube is in good position) - Neck Neck exam: Absent: tenderness, thyromegaly - Respiratory Respiratory exam: Present: He has diminished breath sounds throughout but has fair air movement with some rhonchi bilaterally. - Cardiovascular Cardiovascular exam: Present: regular rate and rhythm, no murmur or gallop. - GI/Abdominal GI/Abdominal exam: Present: Normal bowel sounds, soft. Absent: organomegaly, tenderness - Extremities Exam Extremities exam: Absent: calf tenderness, edema - Neurological Exam Neurological exam: Present: other (Sedated on the ventilator) - Skin Skin exam: Present: warm, dry Results - Labs CBC & BMP: 06/04/16 04:45 06/04/16 04:45 Labs: PO2 is 68 on 50% oxygen. PCO2 is 36 with a pH of 7.36 Assessment and Plan (1) Respiratory failure Status: Acute Assessment and plan: Patient has had CO2 retention and was intubated on the ventilator now. Patient still has some secretions and the PO2 is fair. His chest x-ray shows mild bibasilar infiltrates. He will continue with CPAP trials. Current Visit: Yes Qualifiers: Chronicity: acute on chronic Respiratory failure complication: hypoxia Qualified Code(s): J96.21 - Acute and chronic respiratory failure with hypoxia (2) Right lower lobe pneumonia Status: Acute Assessment and plan: The patient has right lower lobe consolidation and is on IV antibiotics. He has gram-negative rods growing on cultures. Current Visit: Yes Qualifiers: Pneumonia type: due to unspecified organism Qualified Code(s): J18.1 - Lobar pneumonia, unspecified organism (3) SAIMA (acute kidney injury) Status: Acute Assessment and plan: His creatinine has improved and is down to 1.2 today. Current Visit: Yes (4) COPD (chronic obstructive pulmonary disease) Status: Chronic Assessment and plan: Patient looks like he has severe COPD. We will continue with steroids and respiratory therapy. Current Visit: Yes (5) Dementia Status: Chronic Assessment and plan: Patient has a history of dementia Current Visit: Yes Qualifiers: Dementia type: Alzheimer's disease Alzheimer's disease onset: early-onset Dementia behavioral disturbance: without behavioral disturbance Qualified Code(s): G30.0 - Alzheimer's disease with early onset; F02.80 - Dementia in other diseases classified elsewhere without behavioral disturbance (6) Protein-calorie malnutrition, moderate Status: Chronic Assessment and plan: The patient will require supplemental nutrition. Current Visit: Yes (7) HTN (hypertension) Status: Chronic Assessment and plan: Patient has a history of hypertension. He is hemodynamically stable. Current Visit: Yes Qualifiers: Hypertension type: essential hypertension Qualified Code(s): I10 - Essential (primary) hypertension (8) Hypothyroid Status: Acute Assessment and plan: Patient will continue thyroid replacement. Current Visit: Yes Qualifiers: Hypothyroidism type: acquired Qualified Code(s): E03.9 - Hypothyroidism, unspecified
[2016-06-04] MEDS: QUEtiapine 100 MG TABLET PER TUBE SCH (08:45)
[2016-06-04] MEDS: ENOXAPARIN 30 MG/0.3 ML SYRINGE SUBCUT SCH (08:45)
[2016-06-04] MEDS: ALLOPURINOL 300 MG TABLET PER TUBE SCH (08:46)
[2016-06-04] MEDS: DESITIN 4OZ/NYSTATIN 15 GRAM MIXTURE PASTE TOP SCH ×2 (08:46→21:22)
[2016-06-04] MEDS: amLODIPine 5 MG TABLET PER TUBE SCH (08:46)
[2016-06-04] MEDS: DONEPEZIL 10 MG TABLET PER TUBE SCH (21:22)
[2016-06-05] MEDS: ALBUTEROL/IPRATROPIUM 3 ML NEB RESP TX SCH ×4 (00:28→19:24)
[2016-06-05] MEDS: AZTREONAM 1,000 MG in SODIUM CHLORIDE 0.9% 100 ML IV SCH (02:50)
[2016-06-05 04:08] LABS: ABG Base Excess -2.8 MMOL/L (-2.5-2.5); ABG HCO3 21.8 MMOL/L (20-26); ABG Oxygen Saturation 97.8 % (95-100); ABG PCO2 37.4 MM HG (35-48); ABG PH 7.383 (7.35-7.45); ABG PO2 106.3 MM HG (80-95); ABG TCO2 22.9 MMOL/L (23-27)
[2016-06-05] MEDS: DEXTROSE 5% NACL 0.45% 1,000 ML IV SCH ×4 (05:00→17:56)
[2016-06-05 05:12] LABS: Basophils # 0.1 10*3/uL (0.0-0.2); Basophils % 0.3 % (0.0-0.8); Hematocrit 37.6 VOL% (42.0-52.0); Immature Granulocytes % 10.4 %; Immature Granulocytes Absolute 1.85 #; Lymphocytes % 5.4 % (21.2-54.2); Mean Corpuscular HGB Conc 34.6 GM/DL (32-36); Mean Corpuscular Hemoglobin 30 PG (27-34); Mean Platelet Volume 11.4 FL (9.6-12.0); Monocytes # 0.8 10*3/uL (0.11-0.8); Monocytes % 4.4 % (1.7-12.7); NRBC # 0.04 10*3/uL; Neutrophils # 14.1 10*3/uL (1.4-7.4); Neutrophils % 79.5 % (38.7-73.9); Platelet Count 158 T/CUMM (130-400); Red Blood Count 4.32 MC/CUMM (3.8-5.5); Red Cell Distribution Width 15.7 % (9.3-17.3); White Blood Count 17.8 T/CUMM (4-12)
[2016-06-05 05:47] LABS: Magnesium 2.2 MG/DL (1.8-2.4); Osmolality,Calculated 290.3 MOS/KG (273-304); Potassium 3.9 MMOL/L (3.5-5.1)
[2016-06-05 06:14] LABS: Band Neutrophils 4 % (0-10); Hypochromasia 1+; Lymphocytes 6 % (20-55); Segmented Neutrophils 81 % (50-85); Total Cells Counted 100
[2016-06-05 06:15] LABS: Microcytosis 1+; Platelet Estimate Adequate
[2016-06-05] MEDS: methylPREDNISolone SOD SUC 125 MG/2 ML VIAL IV SCH ×2 (06:34→14:21)
[2016-06-05] MEDS: LEVOTHYROXINE 75 MCG TABLET PER TUBE SCH (06:40)
--- NOTE | 2016-06-05 07:06 | Pulmonology Progress Note ---
Pulmonary - PN: Subj Interval history: 81y/o M with COPD admitted with respiratory distress due to pneumonia requiring intubation/mechanical ventilation. Sputum culture from bronchoscopy 06/02 growing H. influenzae (beta-lactamase negative). Patient continues to have a large amount of thick secretions but remains stable on vent with sats 100%. WBC continues to trend up this AM. Exam (Progress Note) - Constitutional Vitals: Period Temp Pulse Resp BP Sys/Grimes Pulse Ox Last 24 Hr 97.0 F-98.2 F 54-82 1-23 103-135/50-71 97-100 General appearance: no acute distress, cachectic - Head Head exam: Present: normal inspection - Eye Pupils: Present: JOZEF - ENT ENT exam: Present: normal exam - Respiratory Respiratory exam: Present: decreased breath sounds, prolonged expiratory phase, rhonchi. Absent: accessory muscle use - Cardiovascular Cardiovascular exam: Present: regular rate and rhythm. Absent: gallop, rubs, systolic murmur - GI/Abdominal GI/Abdominal exam: Present: normal bowel sounds, soft. Absent: guarding, rebound - Extremities Exam Extremities exam: Present: normal inspection. Absent: edema - Neurological Exam Neurological exam: Present: other (sedated on the ventilator) - Skin Skin exam: Present: normal color, warm, dry Results - Labs CBC & BMP: 06/05/16 04:22 06/05/16 04:22 - EKG EKG results: WNL - Diagnostic Findings Procedure: Chest x-ray: image reviewed by me (overall unchanged from yesterday) Assessment and Plan (1) Respiratory failure Status: Acute Assessment and plan: Continue mechanical ventilation due to continued thick secretions & up-trending WBC. Continue CPAP trials as tolerated. Current Visit: Yes Qualifiers: Chronicity: acute on chronic Respiratory failure complication: hypoxia Qualified Code(s): J96.21 - Acute and chronic respiratory failure with hypoxia (2) Right lower lobe pneumonia Status: Acute Assessment and plan: Sputum culture growing H. flu, beta-lactamase negative. Will increase antibiotics dosing since SAIMA has improved for adequate dosing. Trend WBC, CXR & clinical status. Current Visit: Yes Qualifiers: Pneumonia type: due to Haemophilus influenzae Qualified Code(s): J14 - Pneumonia due to Hemophilus influenzae (3) SAIMA (acute kidney injury) Status: Acute Assessment and plan: Resolved, Cr 1.0 today. Adjust medications for improved GFR. Current Visit: Yes (4) COPD (chronic obstructive pulmonary disease) Status: Chronic Assessment and plan: Continue steroids for now, day 4. Current Visit: Yes
[2016-06-05] MEDS: PROPOFOL 1,000 MG/100 ML BOTTLE IV SCH ×2 (07:07→20:45)
[2016-06-05] MEDS: POTASSIUM CHLORIDE 20 MEQ/15 ML UDCUP PER TUBE PRN (07:08)
[2016-06-05] MEDS ORDERED: AZTREONAM 2,000 MG in SODIUM CHLORIDE 0.9% 100 ML IV SCH ×2 (07:41→12:00)
--- NOTE | 2016-06-05 07:45 | XRay Report ---
History: Shortness of breath Date: 06/05/2016 Study: Chest x-ray AP portable Comparison exam: 06/04/2016 The endotracheal tube tip is 1 cm superior to the level of the ximena. The nasogastric tube enters stomach. The cardiomediastinal silhouette is unchanged. There is continued bibasilar atelectasis/infiltrate and mild bilateral pleural effusion, grossly similar to the previous study. There is some mild asymmetric patchy infiltrate in the right upper lung as before. There is no new or worsening infiltrate. Osseous structures are similar. There is no pneumothorax. Impression: No gross overall change from the previous study PROCEDURE INTERPRETED AT [facility] DEPARTMENT OF RADIOLOGY Final Report Signed by: Dr. Bisi Wade
--- NOTE | 2016-06-05 08:51 | Hospitalist Progress Note ---
Assessment and Plan (1) Respiratory failure Status: Acute Assessment and plan: The patient is admitted to the hospital with respiratory failure due to pneumonia. We continue the patient on IV antibiotics and targeting Haemophilus influenza. We are continuing nutrition with tube feedings. Will recheck electrolytes arterial blood gas and CBC in the morning. Current Visit: Yes Qualifiers: Chronicity: acute on chronic Respiratory failure complication: hypoxia Qualified Code(s): J96.21 - Acute and chronic respiratory failure with hypoxia (2) Right lower lobe pneumonia Status: Acute Current Visit: Yes Qualifiers: Pneumonia type: due to Haemophilus influenzae Qualified Code(s): J14 - Pneumonia due to Hemophilus influenzae (3) COPD (chronic obstructive pulmonary disease) Status: Chronic Current Visit: Yes (4) Dementia Status: Chronic Current Visit: Yes Qualifiers: Dementia type: Alzheimer's disease Alzheimer's disease onset: early-onset Dementia behavioral disturbance: without behavioral disturbance Qualified Code(s): G30.0 - Alzheimer's disease with early onset; F02.80 - Dementia in other diseases classified elsewhere without behavioral disturbance (5) Protein-calorie malnutrition, moderate Status: Chronic Current Visit: Yes Hospitalist: Subjective Interval history: The patient is resting comfortably on the ventilator this morning. Tube feedings were discontinued due to some reflux. The patient secretions are thinning as compared to admission. Sputum cultures from the bronchoscopy sample are growing Haemophilus influenza Exam - Constitutional Vitals: Period Temp Pulse Resp BP Sys/Grimes Pulse Ox Last 24 Hr 97.0 F-98.2 F 54-82 1-23 103-157/50-80 97-100 Exam: Constitutional System: Mild distress. No tremulousness. The patient is orally intubated and mechanically ventilated. He is sedated with Diprivan Head: Normocephalic, atraumatic. Ears, Nose and Throat System: No evidence of Otitis or Mastoiditis. No epistaxis or discharge Eyes System: Pupils equal, round, and reactive. Extraocular muscles intact. Neck: Supple, without adenopathy, No jugular venous distention. No thyromegaly , neck mass, or prior surgery apparent. Respiratory System: Chest bilateral rhonchi to auscultation. Cardiovascular System: Heart with regular rate and rhythm. No murmur. GI System: Abdomen soft, nontender. Normo active bowel sounds present. Musculoskeletal System: limbs with no pedal edema. Full distal pulses. Results - Labs CBC & BMP: 06/05/16 04:22 06/05/16 04:22 Lab Results: I have reviewed the past 24 hour labs
[2016-06-05] MEDS: amLODIPine 5 MG TABLET PER TUBE SCH (09:24)
[2016-06-05] MEDS: ENOXAPARIN 30 MG/0.3 ML SYRINGE SUBCUT SCH (09:24)
[2016-06-05] MEDS: LEVOFLOXACIN INJ 750 MG in PREMIX 1 EACH IV SCH (09:24)
[2016-06-05] MEDS: ALLOPURINOL 300 MG TABLET PER TUBE SCH (09:24)
[2016-06-05] MEDS: QUEtiapine 100 MG TABLET PER TUBE SCH (09:25)
[2016-06-05] MEDS: DESITIN 4OZ/NYSTATIN 15 GRAM MIXTURE PASTE TOP SCH ×2 (09:25→21:07)
[2016-06-05] MEDS: ONDANSETRON 4 MG/2 ML VIAL IV PRN (09:26)
[2016-06-05] MEDS: DONEPEZIL 10 MG TABLET PER TUBE SCH (21:07)
[2016-06-05] MEDS: AZTREONAM 2,000 MG in SODIUM CHLORIDE 0.9% 100 ML IV SCH (21:14)
[2016-06-06] MEDS: ALBUTEROL/IPRATROPIUM 3 ML NEB RESP TX SCH ×4 (00:09→19:06)
[2016-06-06] MEDS: methylPREDNISolone SOD SUC 125 MG/2 ML VIAL IV SCH ×2 (00:13→07:09)
[2016-06-06] MEDS: DEXTROSE 5% NACL 0.45% 1,000 ML IV SCH ×5 (02:00→23:11)
[2016-06-06 03:38] LABS: ABG Base Excess -0.6 MMOL/L (-2.5-2.5); ABG HCO3 23.9 MMOL/L (20-26); ABG Oxygen Saturation 98.4 % (95-100); ABG PCO2 35.8 MM HG (35-48); ABG PH 7.421 (7.35-7.45); ABG TCO2 19.9 MMOL/L (23-27); Allen Test Positive; Pt O2 Delivery Device Ventilator
[2016-06-06] MEDS: AZTREONAM 2,000 MG in SODIUM CHLORIDE 0.9% 100 ML IV SCH ×4 (04:19→21:57)
[2016-06-06] MEDS: PROPOFOL 1,000 MG/100 ML BOTTLE IV SCH ×2 (05:40→11:37)
[2016-06-06 05:48] LABS: Basophils % 0.1 % (0.0-0.8); Hematocrit 42.5 VOL% (42.0-52.0); Hemoglobin 14.3 GM/DL (14.0-18.0); Immature Granulocytes % 15.1 %; Immature Granulocytes Absolute 4.01 #; Lymphocytes % 7.5 % (21.2-54.2); Mean Corpuscular HGB Conc 33.6 GM/DL (32-36); Mean Corpuscular Hemoglobin 30 PG (27-34); Mean Corpuscular Volume 89.7 FL (87-102); Mean Platelet Volume 11.8 FL (9.6-12.0); Monocytes # 1.6 10*3/uL (0.11-0.8); Monocytes % 6.2 % (1.7-12.7); NRBC # 0.36 10*3/uL; Neutrophils # 18.9 10*3/uL (1.4-7.4); Neutrophils % 71.1 % (38.7-73.9); Platelet Count 145 T/CUMM (130-400); Red Blood Count 4.74 MC/CUMM (3.8-5.5); Red Cell Distribution Width 16.2 % (9.3-17.3); White Blood Count 26.5 T/CUMM (4-12)
[2016-06-06 06:02] LABS: Calcium 8.1 MG/DL (8.5-10.1); Magnesium 2.2 MG/DL (1.8-2.4); Osmolality,Calculated 285.4 MOS/KG (273-304); Potassium 5.2 MMOL/L (3.5-5.1)
[2016-06-06 07:02] LABS: Band Neutrophils 2 % (0-10); Lymphocytes 7 % (20-55); Metamyelocytes 2 %; Myelocytes 4 %; Nucleated Red Blood Cells 1 (0-5); Segmented Neutrophils 79 % (50-85)
[2016-06-06 07:03] LABS: Platelet Estimate Adequate; Total Cells Counted 100
[2016-06-06] MEDS: LEVOTHYROXINE 75 MCG TABLET PER TUBE SCH (07:09)
--- NOTE | 2016-06-06 07:56 | XRay Report ---
History: Patient on ventilator Date: 06/06/2016 Study: Chest x-ray AP portable Comparison exam: 06/05/2016 The endotracheal tube tip is nearing the ximena and can be safely retracted 1 cm. Nasogastric tube enters the stomach. The cardiomediastinal silhouette is unchanged. There is no gross pulmonary vascular engorgement. There is no pneumothorax. There is continued bibasilar atelectasis/infiltrate and pleural effusion, with slightly improved aeration in the left lung base. There is no new or worsening infiltrate. Osseous structures are unchanged. Impression: Mildly improved aeration in the left lower lung compared to the previous study. Otherwise unchanged PROCEDURE INTERPRETED AT [facility] DEPARTMENT OF RADIOLOGY Final Report Signed by: Dr. Bisi Wade
[2016-06-06] MEDS: amLODIPine 5 MG TABLET PER TUBE SCH (08:40)
[2016-06-06] MEDS: ALLOPURINOL 300 MG TABLET PER TUBE SCH (08:40)
[2016-06-06] MEDS: QUEtiapine 100 MG TABLET PER TUBE SCH (08:41)
[2016-06-06] MEDS: LEVOFLOXACIN INJ 750 MG in PREMIX 1 EACH IV SCH (08:41)
[2016-06-06] MEDS: ENOXAPARIN 30 MG/0.3 ML SYRINGE SUBCUT SCH (08:41)
[2016-06-06] MEDS: DESITIN 4OZ/NYSTATIN 15 GRAM MIXTURE PASTE TOP SCH ×2 (08:51→23:11)
--- NOTE | 2016-06-06 09:20 | Pulmonology Progress Note ---
Pulmonary - PN: Subj Interval history: 81y/o M with COPD admitted with respiratory distress due to pneumonia requiring intubation/mechanical ventilation. Sputum culture from bronchoscopy 06/02 growing H. influenzae (beta-lactamase negative). No acute events overnight. Pt' s secretions have thinned. He continues to do well on CPAP trials. WBC continues to trend up. Exam (Progress Note) - Constitutional Vitals: Period Temp Pulse Resp BP Sys/Grimes Pulse Ox Last 24 Hr 97.7 F-99 F 59-88 10-22 119-172/65-94 91-100 General appearance: under weight - Head Head exam: Present: normal inspection - Eye Eye exam: Present: EOMI Pupils: Present: JOZEF - Respiratory Respiratory exam: Present: clear to auscultation bilaterally, prolonged expiratory phase. Absent: rales, rhonchi, wheezes - Cardiovascular Cardiovascular exam: Present: regular rate and rhythm - GI/Abdominal GI/Abdominal exam: Present: normal bowel sounds, soft - Extremities Exam Extremities exam: Present: normal inspection. Absent: edema - Neurological Exam Neurological exam: Present: other (sedated on ventilator) - Skin Skin exam: Present: warm, dry Results - Labs CBC & BMP: 06/06/16 05:30 06/06/16 05:30 - Diagnostic Findings Procedure: Chest x-ray: image reviewed by me (No significant change from prior.) Assessment and Plan (1) Respiratory failure Status: Acute Assessment and plan: Significant improvement with treatment for Haemophilus influenza pneumonia. Will perform CPAP trial this morning and if continues to do well, will plan for extubation. Current Visit: Yes Qualifiers: Chronicity: acute on chronic Respiratory failure complication: hypoxia Qualified Code(s): J96.21 - Acute and chronic respiratory failure with hypoxia (2) Right lower lobe pneumonia Status: Acute Assessment and plan: Sputum culture growing H. flu, beta-lactamase negative. Antibiotic dosing increased yesterday for improving renal function. Clinically improving with clearing chest x-ray and thinning secretions. Continue current antibiotics and will search for alternate source for rising white blood cell count. Current Visit: Yes Qualifiers: Pneumonia type: due to Haemophilus influenzae Qualified Code(s): J14 - Pneumonia due to Hemophilus influenzae (3) SAIMA (acute kidney injury) Status: Acute Assessment and plan: Resolved, Cr 1.0 today. Adjust medications for improved GFR. Current Visit: Yes (4) COPD (chronic obstructive pulmonary disease) Status: Chronic Assessment and plan: Improved. Will reduce steroid dosing today. Continue bronchodilator therapy. Current Visit: Yes (5) Leukocytosis Status: Acute Assessment and plan: White blood cell count continues to rise this morning. Steroids are likely contributing though we need to rule out underlying alternate infectious process. Pneumonia appears to be improving. Will evaluate urine with UA and urine culture. No diarrhea or abdominal pain at this time. No wounds or other skin abnormalities. Continue trending white blood cell count Current Visit: Yes
--- NOTE | 2016-06-06 09:33 | Hospitalist Progress Note ---
Assessment and Plan (1) Respiratory failure Status: Acute Assessment and plan: The patient is admitted to the hospital with respiratory failure due to pneumonia. We continue the patient on IV antibiotics and targeting Haemophilus influenza. We are continuing nutrition with tube feedings. The patient will be extubated today and we will continue to assess ventilation through the day. Current Visit: Yes Qualifiers: Chronicity: acute on chronic Respiratory failure complication: hypoxia Qualified Code(s): J96.21 - Acute and chronic respiratory failure with hypoxia (2) Right lower lobe pneumonia Status: Acute Current Visit: Yes Qualifiers: Pneumonia type: due to Haemophilus influenzae Qualified Code(s): J14 - Pneumonia due to Hemophilus influenzae (3) COPD (chronic obstructive pulmonary disease) Status: Chronic Current Visit: Yes (4) Dementia Status: Chronic Current Visit: Yes Qualifiers: Dementia type: Alzheimer's disease Alzheimer's disease onset: early-onset Dementia behavioral disturbance: without behavioral disturbance Qualified Code(s): G30.0 - Alzheimer's disease with early onset; F02.80 - Dementia in other diseases classified elsewhere without behavioral disturbance (5) Protein-calorie malnutrition, moderate Status: Chronic Current Visit: Yes Hospitalist: Subjective Interval history: The patient is stable on the ventilator. He is tolerating tube feedings. I coordinated care with Dr. marina who seen the patient for pulmonology. We discussed extubation today which seems appropriate. The patient had no new events overnight. Exam - Constitutional Vitals: Period Temp Pulse Resp BP Sys/Grimes Pulse Ox Last 24 Hr 97.7 F-99 F 59-88 10-22 119-172/65-94 91-100 Exam: Constitutional System: No distress. No tremulousness. The patient is orally intubated and mechanically ventilated. He is sedated with Diprivan Head: Normocephalic, atraumatic. Ears, Nose and Throat System: No evidence of Otitis or Mastoiditis. No epistaxis or discharge Eyes System: Pupils equal, round, and reactive. Extraocular muscles intact. Neck: Supple, without adenopathy, No jugular venous distention. No thyromegaly , neck mass, or prior surgery apparent. Respiratory System: Chest bilateral rhonchi to auscultation. Cardiovascular System: Heart with regular rate and rhythm. No murmur. GI System: Abdomen soft, nontender. Normo active bowel sounds present. Musculoskeletal System: limbs with no pedal edema. Full distal pulses. Results - Labs CBC & BMP: 06/06/16 05:30 06/06/16 05:30 Lab Results: I have reviewed the past 24 hour labs - Diagnostic Findings Procedure: Chest x-ray: image reviewed by me, report reviewed by me (Improving infiltrates without new finding)
[2016-06-06] MEDS ORDERED: fentaNYL INJ 1,250 MCG in SODIUM CHLORIDE 0.9% 225 ML IV SCH (10:00)
[2016-06-06 10:08] LABS: Apearance,Urine CLEAR (Clear); Bilirubin,Urine Negative (Negative); Blood, Urine Negative (Negative); Glucose,Urine (UA) Negative (Negative); Ketones,Urine Negative (Negative); Mucus,Urine Occasional /LPF (Occasional); Nitrite,Urine Negative (Negative); Protein,Urine Negative; RBC,Urine 2 /HPF (0-4); Squamous Epithelial Cell,Urine Occasional /HPF (0-10); Urine Color Yellow (Yellow); Urine Specific Gravity 1.013 (1.001-1.035); WBC,Urine 1 /HPF (0-6)
[2016-06-06 10:48] LABS: Allen Test Positive; Pt O2 Delivery Device Ventilator
[2016-06-06 10:49] LABS: ABG HCO3 23.6 MMOL/L (20-26); ABG Oxygen Saturation 97.7 % (95-100); ABG PCO2 34.8 MM HG (35-48); ABG PH 7.424 (7.35-7.45); ABG PO2 94.9 MM HG (80-95); ABG TCO2 19.4 MMOL/L (23-27)
[2016-06-06] MEDS ORDERED: AZTREONAM 2,000 MG in SODIUM CHLORIDE 0.9% 100 ML IV SCH (13:00)
[2016-06-06] MEDS: MORPHINE 2 MG/1 ML SYRINGE IV PRN ×2 (15:09→23:57)
[2016-06-06] MEDS: DONEPEZIL 10 MG TABLET PER TUBE SCH (21:49)
[2016-06-07] MEDS: ALBUTEROL/IPRATROPIUM 3 ML NEB RESP TX SCH ×6 (00:14→23:21)
[2016-06-07] MEDS: DEXTROSE 50% 25 GM/50 ML VIAL IV PRN ×3 (01:31→07:55)
[2016-06-07] MEDS: AZTREONAM 2,000 MG in SODIUM CHLORIDE 0.9% 100 ML IV SCH ×4 (03:07→21:09)
[2016-06-07 04:40] LABS: Allen Test Positive
[2016-06-07 04:41] LABS: ABG Base Excess -0.2 MMOL/L (-2.5-2.5); ABG HCO3 24.1 MMOL/L (20-26); ABG Oxygen Saturation 91.4 % (95-100); ABG PCO2 31.1 MM HG (35-48); ABG PH 7.467 (7.35-7.45); ABG PO2 57.7 MM HG (80-95); ABG TCO2 19.3 MMOL/L (23-27)
[2016-06-07 05:31] LABS: Basophils % 0.1 % (0.0-0.8); Eosinophils # 0.1 10*3/uL (0.0-0.87); Eosinophils % 0.3 % (0.00-10.9); Hematocrit 43.7 VOL% (42.0-52.0); Hemoglobin 14.7 GM/DL (14.0-18.0); Immature Granulocytes % 21.8 %; Immature Granulocytes Absolute 7.25 #; Lymphocytes # 3.1 10*3/uL (1.4-4.0); Lymphocytes % 9.2 % (21.2-54.2); Mean Corpuscular HGB Conc 33.6 GM/DL (32-36); Mean Corpuscular Hemoglobin 30 PG (27-34); Mean Corpuscular Volume 89.9 FL (87-102); Mean Platelet Volume 11.2 FL (9.6-12.0); Monocytes # 1.6 10*3/uL (0.11-0.8); Monocytes % 4.7 % (1.7-12.7); NRBC # 0.63 10*3/uL; Neutrophils # 21.2 10*3/uL (1.4-7.4); Neutrophils % 63.9 % (38.7-73.9); Platelet Count 172 T/CUMM (130-400); Red Blood Count 4.86 MC/CUMM (3.8-5.5); Red Cell Distribution Width 15.8 % (9.3-17.3); White Blood Count 33.2 T/CUMM (4-12)
[2016-06-07] MEDS: DEXTROSE 5% NACL 0.45% 1,000 ML IV SCH ×4 (05:44→22:15)
[2016-06-07 05:46] LABS: Osmolality,Calculated 290.1 MOS/KG (273-304); Potassium 3.5 MMOL/L (3.5-5.1)
[2016-06-07 05:55] LABS: Band Neutrophils 4 % (0-10); Lymphocytes 14 % (20-55); Myelocytes 2 %; Nucleated Red Blood Cells 4 (0-5); Segmented Neutrophils 76 % (50-85); Total Cells Counted 100
[2016-06-07 05:56] LABS: Hypochromasia Slight; Platelet Estimate Normal
[2016-06-07] MEDS: LEVOTHYROXINE 75 MCG TABLET PER TUBE SCH (06:24)
[2016-06-07] MEDS: POTASSIUM CHLORIDE 20 MEQ/15 ML UDCUP PER TUBE PRN ×2 (06:25→08:46)
--- NOTE | 2016-06-07 07:15 | XRay Report ---
XR chest 1V portable Indication: Shortness of breath Comparison: Chest x-ray 06/06/2016 Technique: Portable AP chest was performed. Findings: Bibasilar airspace opacities are demonstrated worsened since comparison study. Endotracheal tube cannot be identified which may reflect extubation or positioning of chin. The chin as well as a portion of the head spares the upper chest. NG tube remains present. Impression: 1. Bibasilar airspace opacities at differential considerations including infection, edema, and atelectasis. 06/07/2016 7:06 AM PROCEDURE INTERPRETED AT [facility] DEPARTMENT OF RADIOLOGY Final Report Signed by: Dr. Herber Acosta
--- NOTE | 2016-06-07 08:01 | Pulmonology Progress Note ---
Pulmonary - PN: Subj Interval history: Patient is an 81-year-old white man that has a history of COPD and came in with respiratory distress and pneumonia. He was intubated and transferred here. He has been reasonably stable on the ventilator. He does have bibasilar infiltrates worse on the right. He has grown out Haemophilus influenza is getting antibiotics. Over the weekend he did well on CPAP and was extubated yesterday. He does have some dementia and is hard to communicate with he is not coughing very well and requires suctioning. He is still relatively hypoxemic. His chest x-ray still shows mild infiltrates. He does look very debilitated. Exam (Progress Note) - Constitutional Vitals: Period Temp Pulse Resp BP Sys/Grimes Pulse Ox Last 24 Hr 98 F-99 F 72-111 12-26 134-166/58-95 91-100 Exam: General appearance: no acute distress (Patient is awake but hard to communicate with.), cachectic. - Head Head exam: Present: normal inspection, normocephalic - Eye Eye exam: Present: EOMI, other (He has bilateral arcus). Absent: scleral icterus Pupils: Present: JOZEF - ENT ENT exam: Present: normal exam, - Neck Neck exam: Absent: tenderness, thyromegaly - Respiratory Respiratory exam: Present: He has diminished breath sounds with some mild rhonchi bilaterally. She has very poor pulmonary toilet. - Cardiovascular Cardiovascular exam: Present: regular rate and rhythm, no murmur or gallop. - GI/Abdominal GI/Abdominal exam: Present: Normal bowel sounds, soft. Absent: organomegaly, tenderness - Extremities Exam Extremities exam: Absent: calf tenderness, edema - Neurological Exam Neurological exam: Present: He does move his extremities okay. - Skin Skin exam: Present: warm, dry Results - Labs CBC & BMP: 06/07/16 04:54 06/07/16 04:54 Labs: His PO2 is 57 with a PCO2 of 31 and pH of 7.46 - Diagnostic Findings Procedure: Chest x-ray: image reviewed by me, report reviewed by me (Chest x- ray shows COPD changes with mild infiltrates in the bases.) Assessment and Plan (1) Respiratory failure Status: Acute Assessment and plan: Patient has had CO2 retention and was intubated on the ventilator now. He is on the ventilator for several days and was extubated yesterday. He is doing fairly well but still has poor pulmonary toilet. He is still mildly hypoxemic. Current Visit: Yes Qualifiers: Chronicity: acute on chronic Respiratory failure complication: hypoxia Qualified Code(s): J96.21 - Acute and chronic respiratory failure with hypoxia (2) Right lower lobe pneumonia Status: Acute Assessment and plan: The patient has right lower lobe consolidation and is on IV antibiotics. He has grown Haemophilus influenza out on culture and is getting his antibiotics. Current Visit: Yes Qualifiers: Pneumonia type: due to Haemophilus influenzae Qualified Code(s): J14 - Pneumonia due to Hemophilus influenzae (3) SAIMA (acute kidney injury) Status: Acute Assessment and plan: His creatinine has improved and is down to 1.1 today. Current Visit: Yes (4) COPD (chronic obstructive pulmonary disease) Status: Chronic Assessment and plan: Patient looks like he has severe COPD. We will continue with steroids and respiratory therapy. He still requires some suctioning. Current Visit: Yes (5) Dementia Status: Chronic Assessment and plan: Patient has a history of dementia. He apparently has some anxiety and will try to restart some of his medicines. Current Visit: Yes Qualifiers: Dementia type: Alzheimer's disease Alzheimer's disease onset: early-onset Dementia behavioral disturbance: without behavioral disturbance Qualified Code(s): G30.0 - Alzheimer's disease with early onset; F02.80 - Dementia in other diseases classified elsewhere without behavioral disturbance (6) Protein-calorie malnutrition, moderate Status: Chronic Assessment and plan: The patient will require supplemental nutrition. Current Visit: Yes (7) HTN (hypertension) Status: Chronic Assessment and plan: Patient has a history of hypertension. He is hemodynamically stable. His blood pressure and heart rate are still reasonably stable. Current Visit: Yes Qualifiers: Hypertension type: essential hypertension Qualified Code(s): I10 - Essential (primary) hypertension (8) Hypothyroid Status: Acute Assessment and plan: Patient will continue thyroid replacement. Current Visit: Yes Qualifiers: Hypothyroidism type: acquired Qualified Code(s): E03.9 - Hypothyroidism, unspecified
[2016-06-07] MEDS: QUEtiapine 100 MG TABLET PER TUBE SCH (08:38)
[2016-06-07] MEDS: ALLOPURINOL 300 MG TABLET PER TUBE SCH (08:38)
[2016-06-07] MEDS: VENLAFAXINE XR 75 MG CAPSULE PO SCH (08:38)
[2016-06-07] MEDS: CLORAZEPATE 3.75 MG TABLET PO PRN (08:39)
[2016-06-07] MEDS: DESITIN 4OZ/NYSTATIN 15 GRAM MIXTURE PASTE TOP SCH ×2 (08:39→21:08)
[2016-06-07] MEDS: amLODIPine 5 MG TABLET PER TUBE SCH (08:39)
[2016-06-07] MEDS: ENOXAPARIN 30 MG/0.3 ML SYRINGE SUBCUT SCH (08:39)
[2016-06-07] MEDS: methylPREDNISolone SOD SUC 125 MG/2 ML VIAL IV SCH (08:40)
[2016-06-07] MEDS: LEVOFLOXACIN INJ 750 MG in PREMIX 1 EACH IV SCH (08:54)
--- NOTE | 2016-06-07 11:23 | Hospitalist Progress Note ---
Assessment and Plan (1) Respiratory failure Status: Acute Assessment and plan: He has been successfully extubated. Arterial blood gas today demonstrate pH 7.467, PCO2 31.1, PO2 57.7, and oxygen saturation 91.4%. He is being followed by Dr. Mattson of pulmonary. Current Visit: Yes Qualifiers: Chronicity: acute on chronic Respiratory failure complication: hypoxia Qualified Code(s): J96.21 - Acute and chronic respiratory failure with hypoxia (2) Right lower lobe pneumonia Status: Acute Assessment and plan: He continues treatment with intravenous aztreonam and levofloxacin. Current Visit: Yes Qualifiers: Pneumonia type: due to Haemophilus influenzae Qualified Code(s): J14 - Pneumonia due to Hemophilus influenzae (3) SAIMA (acute kidney injury) Status: Acute Assessment and plan: His BUN and creatinine are stable today at 34 and 1.1 respectively. Current Visit: Yes (4) COPD (chronic obstructive pulmonary disease) Status: Chronic Assessment and plan: He continues treatment with intravenous methylprednisolone, intravenous antibiotics, and albuterol ipratropium nebulizer therapy. Current Visit: Yes (5) Dementia Status: Chronic Assessment and plan: Stable. No intervention is planned at this time. Current Visit: Yes Qualifiers: Dementia type: Alzheimer's disease Alzheimer's disease onset: early-onset Dementia behavioral disturbance: without behavioral disturbance Qualified Code(s): G30.0 - Alzheimer's disease with early onset; F02.80 - Dementia in other diseases classified elsewhere without behavioral disturbance (6) Protein-calorie malnutrition, moderate Status: Chronic Assessment and plan: He has been receiving nasogastric tube feedings. Current Visit: Yes (7) HTN (hypertension) Status: Chronic Assessment and plan: His blood pressure is stable today at 111/62. Current Visit: Yes Qualifiers: Hypertension type: essential hypertension Qualified Code(s): I10 - Essential (primary) hypertension Hospitalist: Subjective Interval history: The patient is an 81-year-old white male with previous history of chronic obstructive pulmonary disease. He was hospitalized here with pneumonia and acute respiratory failure necessitating intubation and assisted ventilation. Cultures here demonstrated Haemophilus influenza A for which she has been treated with appropriate antibiotics. He was successfully extubated yesterday. He has a previous history of dementia and does not communicate much. He has had difficulty coughing and has required suctioning. He is continued to be hypoxemic his chest x-rays continued to demonstrate bilateral infiltrates. He has been hypoglycemic for which she is required D [address]. At the present time he appears comfortable. Exam - Constitutional Vitals: Period Temp Pulse Resp BP Sys/Grimes Pulse Ox Last 24 Hr 97.7 F-98.6 F 72-111 16-26 106-166/58-95 91-100 General appearance: no acute distress - Head Head exam: Present: normal inspection, normocephalic - Eye Eye exam: Present: EOMI Pupils: Present: JOZEF - Neck Neck exam: Present: normal inspection - Respiratory Respiratory exam: Present: decreased breath sounds, rhonchi - Cardiovascular Cardiovascular exam: Present: regular rate and rhythm - GI/Abdominal GI/Abdominal exam: Present: normal bowel sounds, soft, other (Nontender with no palpable masses or hepatosplenomegaly.) - Extremities Exam Extremities exam: Present: normal inspection - Back Exam Back exam: Present: normal inspection - Skin Skin exam: Present: normal color, warm, dry Results - Labs CBC & BMP: 06/07/16 04:54 06/07/16 04:54
[2016-06-07] MEDS: DONEPEZIL 10 MG TABLET PER TUBE SCH (21:09)
[2016-06-08] MEDS: DEXTROSE 5% NACL 0.45% 1,000 ML IV SCH ×5 (00:13→20:58)
[2016-06-08] MEDS: CLORAZEPATE 3.75 MG TABLET PO PRN (00:44)
[2016-06-08 02:40] LABS: ABG HCO3 26.1 MMOL/L (20-26); ABG Oxygen Saturation 96.6 % (95-100); ABG PCO2 30.6 MM HG (35-48); ABG PH 7.504 (7.35-7.45); ABG PO2 77.4 MM HG (80-95); ABG TCO2 20.3 MMOL/L (23-27); Allen Test Positive
[2016-06-08] MEDS: AZTREONAM 2,000 MG in SODIUM CHLORIDE 0.9% 100 ML IV SCH ×2 (03:05→09:41)
[2016-06-08] MEDS: ALBUTEROL/IPRATROPIUM 3 ML NEB RESP TX SCH ×5 (03:36→20:24)
[2016-06-08] MEDS: LEVOTHYROXINE 75 MCG TABLET PER TUBE SCH (06:11)
[2016-06-08 06:58] LABS: Basophils % 0.1 % (0.0-0.8); Eosinophils # 0.3 10*3/uL (0.0-0.87); Eosinophils % 0.9 % (0.00-10.9); Hematocrit 44.3 VOL% (42.0-52.0); Hemoglobin 15.3 GM/DL (14.0-18.0); Immature Granulocytes % 23.8 %; Lymphocytes # 3.5 10*3/uL (1.4-4.0); Lymphocytes % 12.7 % (21.2-54.2); Mean Corpuscular HGB Conc 34.5 GM/DL (32-36); Mean Corpuscular Hemoglobin 30 PG (27-34); Mean Platelet Volume 10.8 FL (9.6-12.0); Monocytes # 0.9 10*3/uL (0.11-0.8); Monocytes % 3.1 % (1.7-12.7); NRBC # 0.27 10*3/uL; Neutrophils # 16.4 10*3/uL (1.4-7.4); Neutrophils % 59.4 % (38.7-73.9); Platelet Count 210 T/CUMM (130-400); Red Blood Count 5.09 MC/CUMM (3.8-5.5); Red Cell Distribution Width 15.6 % (9.3-17.3); White Blood Count 27.7 T/CUMM (4-12)
[2016-06-08 07:17] LABS: Calcium 7.9 MG/DL (8.5-10.1); Osmolality,Calculated 280.7 MOS/KG (273-304)
[2016-06-08 07:24] LABS: Band Neutrophils 8 % (0-10); Hypochromasia Slight; Lymphocytes 15 % (20-55); Nucleated Red Blood Cells 2 (0-5); Platelet Estimate Adequate; Segmented Neutrophils 73 % (50-85); Total Cells Counted 100
[2016-06-08] MEDS: ENOXAPARIN 30 MG/0.3 ML SYRINGE SUBCUT SCH (08:52)
[2016-06-08] MEDS: amLODIPine 5 MG TABLET PER TUBE SCH (08:52)
[2016-06-08] MEDS: VENLAFAXINE XR 75 MG CAPSULE PO SCH (08:52)
[2016-06-08] MEDS: QUEtiapine 100 MG TABLET PER TUBE SCH (08:52)
[2016-06-08] MEDS: DESITIN 4OZ/NYSTATIN 15 GRAM MIXTURE PASTE TOP SCH ×2 (08:52→22:06)
[2016-06-08] MEDS: methylPREDNISolone SOD SUC 125 MG/2 ML VIAL IV SCH (08:53)
[2016-06-08] MEDS: ALLOPURINOL 300 MG TABLET PER TUBE SCH (08:53)
[2016-06-08] MEDS: LEVOFLOXACIN INJ 750 MG in PREMIX 1 EACH IV SCH (09:41)
--- NOTE | 2016-06-08 11:34 | Hospitalist Progress Note ---
Assessment and Plan (1) Respiratory failure Status: Acute Assessment and plan: Arterial blood gas today demonstrate pH 7.504, PCO2 30.6, PO2 77.4, and oxygen saturation 96.6%. He is being followed by Dr. Vital of pulmonary. Current Visit: Yes Qualifiers: Chronicity: acute on chronic Respiratory failure complication: hypoxia Qualified Code(s): J96.21 - Acute and chronic respiratory failure with hypoxia (2) Right lower lobe pneumonia Status: Acute Assessment and plan: He continues treatment with intravenous aztreonam and levofloxacin. Current Visit: Yes Qualifiers: Pneumonia type: due to Haemophilus influenzae Qualified Code(s): J14 - Pneumonia due to Hemophilus influenzae (3) SAIMA (acute kidney injury) Status: Acute Assessment and plan: His BUN and creatinine are stable today at 30 and 1.0 respectively. Current Visit: Yes (4) COPD (chronic obstructive pulmonary disease) Status: Chronic Assessment and plan: He continues treatment with intravenous methylprednisolone, intravenous antibiotics, and albuterol ipratropium nebulizer therapy. Current Visit: Yes (5) Dementia Status: Chronic Assessment and plan: Stable. No intervention is planned at this time. Current Visit: Yes Qualifiers: Dementia type: Alzheimer's disease Alzheimer's disease onset: early-onset Dementia behavioral disturbance: without behavioral disturbance Qualified Code(s): G30.0 - Alzheimer's disease with early onset; F02.80 - Dementia in other diseases classified elsewhere without behavioral disturbance (6) Protein-calorie malnutrition, moderate Status: Chronic Assessment and plan: He has been receiving nasogastric tube feedings. Current Visit: Yes (7) HTN (hypertension) Status: Chronic Assessment and plan: His blood pressure is stable today at 119/60. Current Visit: Yes Qualifiers: Hypertension type: essential hypertension Qualified Code(s): I10 - Essential (primary) hypertension Hospitalist: Subjective Interval history: Mr. Oconnell is an 81-year-old white male with previous history of chronic obstructive pulmonary disease. He was hospitalized here with pneumonia and acute respiratory failure necessitating intubation and assisted ventilation. Cultures have demonstrated Haemophilus influenza A for which she has been treated with appropriate antibiotics. He was successfully extubated 2 days ago. He has had difficulty coughing and has required frequent suctioning. He is continued to be hypoxemic. His chest x-rays continues to demonstrate bilateral infiltrates. At the present time he is comfortable and appropriately responsive to questions. Exam - Constitutional Vitals: Period Temp Pulse Resp BP Sys/Grimes Pulse Ox Last 24 Hr 97.6 F-98.7 F 66-100 11-28 108-168/58-94 88-100 General appearance: no acute distress - Head Head exam: Present: normal inspection, normocephalic - Eye Eye exam: Present: EOMI Pupils: Present: JOZEF - Neck Neck exam: Present: normal inspection - Respiratory Respiratory exam: Present: decreased breath sounds - Cardiovascular Cardiovascular exam: Present: regular rate and rhythm - GI/Abdominal GI/Abdominal exam: Present: normal bowel sounds, soft, other (Nontender with no palpable masses or hepatosplenomegaly.) - Extremities Exam Extremities exam: Present: normal inspection - Back Exam Back exam: Present: normal inspection - Neurological Exam Neurological exam: Present: alert - Psychiatric Psychiatric exam: Present: normal affect, normal mood - Skin Skin exam: Present: normal color, warm, dry Results - Labs CBC & BMP: 06/08/16 06:52 06/08/16 06:52
--- NOTE | 2016-06-08 12:57 | Pulmonology Progress Note ---
Pulmonary - PN: Subj Interval history: Patient is an 81-year-old white man that has a history of COPD and came in with respiratory distress and pneumonia. He was intubated and transferred here. He has been reasonably stable on the ventilator. He does have bibasilar infiltrates worse on the right. He has grown out Haemophilus influenza is getting antibiotics. Over the weekend he did well on CPAP and was extubated . He has been very weak but did well last night. He is still getting vigorous respiratory therapy. He is more alert today and looks like his breathing is little better. He did not do well with swallowing still has a NG tube. He does want to try to move around a little today. He did have MRSA growing out of washings. Exam (Progress Note) - Constitutional Vitals: Period Temp Pulse Resp BP Sys/Grimes Pulse Ox Last 24 Hr 97.6 F-98.7 F 66-100 11-28 108-168/58-94 88-100 Exam: General appearance: no acute distress (Patient is more alert and does look more comfortable. ) - Head Head exam: Present: normal inspection, normocephalic - Eye Eye exam: Present: EOMI, other (He has bilateral arcus). Absent: scleral icterus Pupils: Present: JOZEF - ENT ENT exam: Present: normal exam, he has the NG tube in place - Neck Neck exam: Absent: tenderness, thyromegaly - Respiratory Respiratory exam: Present: He has diminished breath sounds with prolonged expiration and some mild rhonchi present. He has very poor pulmonary toilet. - Cardiovascular Cardiovascular exam: Present: regular rate and rhythm, no murmur or gallop. - GI/Abdominal GI/Abdominal exam: Present: Normal bowel sounds, soft. Absent: organomegaly, tenderness - Extremities Exam Extremities exam: Absent: calf tenderness, edema - Neurological Exam Neurological exam: Present: He does move his extremities okay. - Skin Skin exam: Present: warm, dry Results - Labs CBC & BMP: 06/08/16 06:52 06/08/16 06:52 Assessment and Plan (1) Respiratory failure Status: Acute Assessment and plan: Patient has had CO2 retention and was intubated on the ventilator . He has done okay off the ventilator now. He looks a little better today with less distress. He still has a little trouble coughing and requires some suctioning. Current Visit: Yes Qualifiers: Chronicity: acute on chronic Respiratory failure complication: hypoxia Qualified Code(s): J96.21 - Acute and chronic respiratory failure with hypoxia (2) Right lower lobe pneumonia Status: Acute Assessment and plan: The patient has right lower lobe consolidation and is on IV antibiotics. He has grown Haemophilus influenza out on culture and is getting his antibiotics. He also had MRSA growing out of washings. Current Visit: Yes Qualifiers: Pneumonia type: due to Haemophilus influenzae Qualified Code(s): J14 - Pneumonia due to Hemophilus influenzae (3) SAIMA (acute kidney injury) Status: Acute Assessment and plan: His creatinine has improved and is down to 1.0 today. Current Visit: Yes (4) COPD (chronic obstructive pulmonary disease) Status: Chronic Assessment and plan: Patient looks like he has severe COPD. We will continue with steroids and respiratory therapy. He still requires some suctioning. Current Visit: Yes (5) Dementia Status: Chronic Assessment and plan: Patient has a history of dementia. He apparently has some anxiety and will try to restart some of his medicines. He does look more alert and calmer today. Current Visit: Yes Qualifiers: Dementia type: Alzheimer's disease Alzheimer's disease onset: early-onset Dementia behavioral disturbance: without behavioral disturbance Qualified Code(s): G30.0 - Alzheimer's disease with early onset; F02.80 - Dementia in other diseases classified elsewhere without behavioral disturbance (6) Protein-calorie malnutrition, moderate Status: Chronic Assessment and plan: The patient will require supplemental nutrition. He is still getting tube feedings. Current Visit: Yes (7) HTN (hypertension) Status: Chronic Assessment and plan: Patient has a history of hypertension. He is hemodynamically stable. His blood pressure and heart rate are still reasonably stable. Current Visit: Yes Qualifiers: Hypertension type: essential hypertension Qualified Code(s): I10 - Essential (primary) hypertension (8) Hypothyroid Status: Chronic Assessment and plan: Patient will continue thyroid replacement. Current Visit: Yes Qualifiers: Hypothyroidism type: acquired Qualified Code(s): E03.9 - Hypothyroidism, unspecified
[2016-06-08] MEDS: VANCOMYCIN INJ 1,000 MG in SODIUM CHLORIDE 0.9% 250 ML IV SCH (14:18)
[2016-06-08] MEDS: AZTREONAM 1,000 MG in SODIUM CHLORIDE 0.9% 100 ML IV SCH ×2 (17:06→22:06)
[2016-06-08] MEDS: DONEPEZIL 10 MG TABLET PER TUBE SCH (22:06)
[2016-06-09] MEDS: ALBUTEROL/IPRATROPIUM 3 ML NEB RESP TX SCH ×6 (00:58→20:10)
[2016-06-09] MEDS: VANCOMYCIN INJ 1,000 MG in SODIUM CHLORIDE 0.9% 250 ML IV SCH ×2 (02:14→14:58)
[2016-06-09 03:34] LABS: Allen Test Positive; Pt O2 Delivery Device Venturi Mask
[2016-06-09 03:35] LABS: ABG Base Excess 1.3 MMOL/L (-2.5-2.5); ABG HCO3 25.5 MMOL/L (20-26); ABG Oxygen Saturation 97.4 % (95-100); ABG PCO2 31.8 MM HG (35-48); ABG PH 7.482 (7.35-7.45); ABG PO2 88.9 MM HG (80-95); ABG TCO2 20.1 MMOL/L (23-27)
[2016-06-09] MEDS: DEXTROSE 5% NACL 0.45% 1,000 ML IV SCH ×4 (03:50→22:37)
[2016-06-09 05:03] LABS: Basophils # 0.1 10*3/uL (0.0-0.2); Basophils % 0.4 % (0.0-0.8); Eosinophils # 0.2 10*3/uL (0.0-0.87); Eosinophils % 0.8 % (0.00-10.9); Hematocrit 40.5 VOL% (42.0-52.0); Immature Granulocytes % 19.1 %; Lymphocytes # 2.5 10*3/uL (1.4-4.0); Lymphocytes % 10.2 % (21.2-54.2); Mean Corpuscular HGB Conc 34.6 GM/DL (32-36); Mean Corpuscular Hemoglobin 30 PG (27-34); Mean Corpuscular Volume 87.1 FL (87-102); Mean Platelet Volume 10.6 FL (9.6-12.0); Monocytes # 0.8 10*3/uL (0.11-0.8); Monocytes % 3.1 % (1.7-12.7); NRBC # 0.08 10*3/uL; Neutrophils # 16.4 10*3/uL (1.4-7.4); Neutrophils % 66.4 % (38.7-73.9); Platelet Count 215 T/CUMM (130-400); Red Blood Count 4.65 MC/CUMM (3.8-5.5); Red Cell Distribution Width 15.4 % (9.3-17.3); White Blood Count 24.7 T/CUMM (4-12)
[2016-06-09 05:24] LABS: Eosinophils 1 % (0-10); Lymphocytes 12 % (20-55); Segmented Neutrophils 78 % (50-85); Total Cells Counted 100
[2016-06-09 05:25] LABS: Hypochromasia 2+; Platelet Estimate Normal
[2016-06-09 05:36] LABS: Calcium 7.6 MG/DL (8.5-10.1); Osmolality,Calculated 282.5 MOS/KG (273-304); Potassium 3.6 MMOL/L (3.5-5.1)
[2016-06-09] MEDS: POTASSIUM CHLORIDE 20 MEQ/15 ML UDCUP PER TUBE PRN (06:03)
[2016-06-09] MEDS: AZTREONAM 1,000 MG in SODIUM CHLORIDE 0.9% 100 ML IV SCH ×3 (06:05→22:35)
[2016-06-09] MEDS: LEVOTHYROXINE 75 MCG TABLET PER TUBE SCH (06:05)
--- NOTE | 2016-06-09 08:14 | Pulmonology Progress Note ---
Pulmonary - PN: Subj Interval history: Patient is an 81-year-old white man that has a history of COPD and came in with respiratory distress and pneumonia. He was intubated and transferred here. He has been reasonably stable on the ventilator. He does have bibasilar infiltrates worse on the right. He has grown out Haemophilus influenza is getting antibiotics. Over the weekend he did well on CPAP and was extubated . He has been very weak but did well last night. He is still getting vigorous respiratory therapy. He is more alert today and looks like his breathing is little better. He did not do well with swallowing still has a NG tube. He did have MRSA growing out of washings. He has had a fairly good night but still requires suctioning. The patient is quite emaciated and is unable to do much activity. He cannot cough very well at all. He is still requiring tube feedings. His ABGs are stable and his breathing is doing okay. He can probably move to a room and be with his family. He looks like he will need senior care placement. Exam (Progress Note) - Constitutional Vitals: Period Temp Pulse Resp BP Sys/Grimes Pulse Ox Last 24 Hr 97.6 F-99.5 F 65-108 11-35 108-166/58-87 88-100 Exam: General appearance: no acute distress (Patient is alert and not have any respiratory distress. ) - Head Head exam: Present: normal inspection, normocephalic - Eye Eye exam: Present: EOMI, other (He has bilateral arcus). Absent: scleral icterus Pupils: Present: JOZEF - ENT ENT exam: Present: normal exam, he has the NG tube in place - Neck Neck exam: Absent: tenderness, thyromegaly - Respiratory Respiratory exam: Present: He has diminished breath sounds with prolonged expiration and some mild rhonchi present. He has very poor pulmonary toilet. - Cardiovascular Cardiovascular exam: Present: regular rate and rhythm, no murmur or gallop. - GI/Abdominal GI/Abdominal exam: Present: Normal bowel sounds, soft. Absent: organomegaly, tenderness - Extremities Exam Extremities exam: Absent: calf tenderness, edema, his extremities are quite emaciated. - Neurological Exam Neurological exam: Present: He does move his extremities okay. - Skin Skin exam: Present: warm, dry Results - Labs CBC & BMP: 06/09/16 04:21 04/26/17 04:21 Labs: His PO2 is 88 with a PCO2 of 31 and pH of 7.48 Assessment and Plan (1) Respiratory failure Status: Acute Assessment and plan: Patient has had CO2 retention and was intubated on the ventilator . He has done okay off the ventilator now. He still has trouble clearing secretions but otherwise he is fairly stable at present Current Visit: Yes Qualifiers: Chronicity: acute on chronic Respiratory failure complication: hypoxia Qualified Code(s): J96.21 - Acute and chronic respiratory failure with hypoxia (2) Right lower lobe pneumonia Status: Acute Assessment and plan: The patient has right lower lobe consolidation and is on IV antibiotics. He has grown Haemophilus influenza out on culture and is getting his antibiotics. He also had MRSA growing out of washings. Clinically he is doing a little better. Current Visit: Yes Qualifiers: Pneumonia type: due to Haemophilus influenzae Qualified Code(s): J14 - Pneumonia due to Hemophilus influenzae (3) SAIMA (acute kidney injury) Status: Acute Assessment and plan: His creatinine has improved and is down to 0.8 today. Current Visit: Yes (4) COPD (chronic obstructive pulmonary disease) Status: Chronic Assessment and plan: Patient looks like he has severe COPD. We will continue with steroids and respiratory therapy. He still requires some suctioning. He is quite emaciated and does not look like he can do much activity at all. Current Visit: Yes (5) Dementia Status: Chronic Assessment and plan: Patient has a history of dementia. He apparently has some anxiety and will try to restart some of his medicines. He does look more alert and calmer today. Current Visit: Yes Qualifiers: Dementia type: Alzheimer's disease Alzheimer's disease onset: early-onset Dementia behavioral disturbance: without behavioral disturbance Qualified Code(s): G30.0 - Alzheimer's disease with early onset; F02.80 - Dementia in other diseases classified elsewhere without behavioral disturbance (6) Protein-calorie malnutrition, moderate Status: Chronic Assessment and plan: The patient will require supplemental nutrition. He is still getting tube feedings. Current Visit: Yes (7) HTN (hypertension) Status: Chronic Assessment and plan: Patient has a history of hypertension. He is hemodynamically stable. His blood pressure and heart rate are still reasonably stable. Current Visit: Yes Qualifiers: Hypertension type: essential hypertension Qualified Code(s): I10 - Essential (primary) hypertension (8) Hypothyroid Status: Chronic Assessment and plan: Patient will continue thyroid replacement. Current Visit: Yes Qualifiers: Hypothyroidism type: acquired Qualified Code(s): E03.9 - Hypothyroidism, unspecified
[2016-06-09] MEDS: ENOXAPARIN 30 MG/0.3 ML SYRINGE SUBCUT SCH (08:41)
[2016-06-09] MEDS: methylPREDNISolone SOD SUC 125 MG/2 ML VIAL IV SCH (08:41)
[2016-06-09] MEDS: VENLAFAXINE XR 75 MG CAPSULE PO SCH ×2 (08:42→16:54)
[2016-06-09] MEDS: ALLOPURINOL 300 MG TABLET PER TUBE SCH (08:42)
[2016-06-09] MEDS: QUEtiapine 100 MG TABLET PER TUBE SCH (08:43)
[2016-06-09] MEDS: amLODIPine 5 MG TABLET PER TUBE SCH (08:44)
[2016-06-09] MEDS: DESITIN 4OZ/NYSTATIN 15 GRAM MIXTURE PASTE TOP SCH ×2 (08:44→22:37)
--- NOTE | 2016-06-09 10:25 | Hospitalist Progress Note ---
Assessment and Plan (1) Respiratory failure Status: Acute Assessment and plan: Arterial blood gas today demonstrate pH 7.4082, PCO2 31.8, PO2 88.9, and oxygen saturation 97.4%. He is being followed by Dr. Vital of pulmonary. Current Visit: Yes Qualifiers: Chronicity: acute on chronic Respiratory failure complication: hypoxia Qualified Code(s): J96.21 - Acute and chronic respiratory failure with hypoxia (2) Right lower lobe pneumonia Status: Acute Assessment and plan: He continues treatment with intravenous aztreonam and levofloxacin. Current Visit: Yes Qualifiers: Pneumonia type: due to Haemophilus influenzae Qualified Code(s): J14 - Pneumonia due to Hemophilus influenzae (3) SAIMA (acute kidney injury) Status: Acute Assessment and plan: His BUN and creatinine are stable today at 31 and 0.8 respectively. Current Visit: Yes (4) COPD (chronic obstructive pulmonary disease) Status: Chronic Assessment and plan: He continues treatment with intravenous methylprednisolone, intravenous antibiotics, and albuterol ipratropium nebulizer therapy. Current Visit: Yes (5) Dementia Status: Chronic Assessment and plan: Stable. No intervention is planned at this time. Current Visit: Yes Qualifiers: Dementia type: Alzheimer's disease Alzheimer's disease onset: early-onset Dementia behavioral disturbance: without behavioral disturbance Qualified Code(s): G30.0 - Alzheimer's disease with early onset; F02.80 - Dementia in other diseases classified elsewhere without behavioral disturbance (6) Protein-calorie malnutrition, moderate Status: Chronic Assessment and plan: He has been receiving nasogastric tube feedings. Current Visit: Yes (7) HTN (hypertension) Status: Chronic Assessment and plan: His blood pressure is elevated today to 161/81. Current Visit: Yes Qualifiers: Hypertension type: essential hypertension Qualified Code(s): I10 - Essential (primary) hypertension Hospitalist: Subjective Interval history: Mr. Oconnell is an 81-year-old white male with previous history of chronic obstructive pulmonary disease. He was hospitalized here with pneumonia and acute respiratory failure necessitating intubation and assisted ventilation. Ultrasound demonstrated Haemophilus and influenza A for which she has been treated with appropriate antibiotics. He has been followed during his hospitalization by Dr. Martínez of pulmonary. He was successfully extubated 3 days ago he has had difficulty coughing and has required frequent suctioning. He is continued to be hypoxemic. His chest x-rays continued to demonstrate bilateral infiltrates. At the present time he appears comfortable and appropriately responsive to questions. Dr. Martínez has recommended that he could be transferred to the medical surgical unit at this time. Exam - Constitutional Vitals: Period Temp Pulse Resp BP Sys/Grimes Pulse Ox Last 24 Hr 97.6 F-99.5 F 65-108 12-35 111-166/58-87 88-100 General appearance: no acute distress - Head Head exam: Present: normal inspection, normocephalic - Eye Eye exam: Present: EOMI Pupils: Present: JOZEF - Neck Neck exam: Present: normal inspection - Respiratory Respiratory exam: Present: decreased breath sounds - Cardiovascular Cardiovascular exam: Present: regular rate and rhythm - GI/Abdominal GI/Abdominal exam: Present: normal bowel sounds, soft, other (No palpable masses or hepatosplenomegaly.) - Extremities Exam Extremities exam: Present: normal inspection - Back Exam Back exam: Present: normal inspection - Skin Skin exam: Present: normal color, warm, dry Results - Labs CBC & BMP: 06/09/16 04:21 06/09/16 04:21
[2016-06-09] MEDS: ONDANSETRON 4 MG/2 ML VIAL IV PRN (16:53)
[2016-06-09] MEDS: CLORAZEPATE 3.75 MG TABLET PO PRN (16:53)
[2016-06-09] MEDS: ZALEPLON 5 MG CAPSULE PO SCH (22:37)
[2016-06-09] MEDS: MEMANTINE 10 MG TABLET PO SCH (22:37)
[2016-06-09] MEDS: CLORAZEPATE 3.75 MG TABLET PO SCH (22:37)
[2016-06-09] MEDS: DONEPEZIL 10 MG TABLET PER TUBE SCH (22:37)
[2016-06-10] MEDS: ALBUTEROL/IPRATROPIUM 3 ML NEB RESP TX SCH ×6 (00:20→20:18)
[2016-06-10] MEDS: VANCOMYCIN INJ 1,000 MG in SODIUM CHLORIDE 0.9% 250 ML IV SCH ×2 (01:48→13:44)
[2016-06-10 03:23] LABS: ABG Base Excess 2.2 MMOL/L (-2.5-2.5); ABG HCO3 26.9 MMOL/L (20-26); ABG Oxygen Saturation 93.6 % (95-100); ABG PCO2 41.9 MM HG (35-48); ABG PH 7.425 (7.35-7.45); ABG PO2 71.3 MM HG (80-95); ABG TCO2 28.2 MMOL/L (23-27); Allen Test Positive; Pt O2 Delivery Device Venturi Mask
[2016-06-10] MEDS: LEVOTHYROXINE 75 MCG TABLET PER TUBE SCH (06:08)
[2016-06-10] MEDS: AZTREONAM 1,000 MG in SODIUM CHLORIDE 0.9% 100 ML IV SCH ×3 (06:08→22:59)
[2016-06-10 06:18] LABS: Basophils # 0.1 10*3/uL (0.0-0.2); Basophils % 0.3 % (0.0-0.8); Eosinophils # 0.2 10*3/uL (0.0-0.87); Eosinophils % 1.1 % (0.00-10.9); Hematocrit 39.4 VOL% (42.0-52.0); Hemoglobin 13.6 GM/DL (14.0-18.0); Immature Granulocytes % 12.6 %; Immature Granulocytes Absolute 2.58 #; Lymphocytes # 2.1 10*3/uL (1.4-4.0); Lymphocytes % 10.4 % (21.2-54.2); Mean Corpuscular HGB Conc 34.5 GM/DL (32-36); Mean Corpuscular Hemoglobin 30 PG (27-34); Mean Corpuscular Volume 86.2 FL (87-102); Mean Platelet Volume 10.2 FL (9.6-12.0); Monocytes # 0.6 10*3/uL (0.11-0.8); Monocytes % 2.9 % (1.7-12.7); NRBC # 0.04 10*3/uL; Neutrophils # 14.9 10*3/uL (1.4-7.4); Neutrophils % 72.7 % (38.7-73.9); Platelet Count 211 T/CUMM (130-400); Red Blood Count 4.57 MC/CUMM (3.8-5.5); Red Cell Distribution Width 15.8 % (9.3-17.3); White Blood Count 20.6 T/CUMM (4-12)
[2016-06-10] MEDS: DEXTROSE 5% NACL 0.45% 1,000 ML IV SCH (06:25)
[2016-06-10 06:40] LABS: Band Neutrophils 2 % (0-10); Eosinophils 1 % (0-10); Hypochromasia 1+; Lymphocytes 11 % (20-55); Ovalocytes Slight; Platelet Estimate Adequate; Segmented Neutrophils 85 % (50-85); Total Cells Counted 100
[2016-06-10 06:54] LABS: Calcium 7.9 MG/DL (8.5-10.1); Osmolality,Calculated 284.4 MOS/KG (273-304); Potassium 3.6 MMOL/L (3.5-5.1)
--- NOTE | 2016-06-10 08:56 | Hospitalist Progress Note ---
Assessment and Plan (1) Respiratory failure Status: Acute Assessment and plan: Arterial blood gas today demonstrate pH 7.425, PCO2 41.9, PO2 71.3, and arterial oxygen saturation 93.6%. He is being followed by Dr. Vital of pulmonary. He continues to require frequent suctioning. Current Visit: Yes Qualifiers: Chronicity: acute on chronic Respiratory failure complication: hypoxia Qualified Code(s): J96.21 - Acute and chronic respiratory failure with hypoxia (2) Right lower lobe pneumonia Status: Acute Assessment and plan: He continues treatment with intravenous aztreonam and vancomycin. Current Visit: Yes Qualifiers: Pneumonia type: due to Haemophilus influenzae Qualified Code(s): J14 - Pneumonia due to Hemophilus influenzae (3) SAIMA (acute kidney injury) Status: Acute Assessment and plan: His BUN and creatinine are stable today at 28 and 0.9 respectively. Current Visit: Yes (4) COPD (chronic obstructive pulmonary disease) Status: Chronic Assessment and plan: He continues treatment with intravenous methylprednisolone, intravenous antibiotics, and albuterol ipratropium nebulizer therapy. Current Visit: Yes (5) Dementia Status: Chronic Assessment and plan: Stable. No intervention is planned at this time. Current Visit: Yes Qualifiers: Dementia type: Alzheimer's disease Alzheimer's disease onset: early-onset Dementia behavioral disturbance: without behavioral disturbance Qualified Code(s): G30.0 - Alzheimer's disease with early onset; F02.80 - Dementia in other diseases classified elsewhere without behavioral disturbance (6) Protein-calorie malnutrition, moderate Status: Chronic Assessment and plan: He has been receiving nasogastric tube feedings. Current Visit: Yes (7) HTN (hypertension) Status: Chronic Assessment and plan: His blood pressure is elevated today to 155/70. Current Visit: Yes Qualifiers: Hypertension type: essential hypertension Qualified Code(s): I10 - Essential (primary) hypertension Hospitalist: Subjective Interval history: Mr. Oconnell is an 81-year-old white male with previous history of chronic obstructive pulmonary disease. Was hospitalized here with pneumonia and acute respiratory failure necessitating intubation and assisted ventilation. Cultures demonstrated Haemophilus influenzae for which she has been treated with appropriate antibiotics. He has been followed during his hospitalization by Dr. Martínez of pulmonary. He was transferred to the floor from the ICU yesterday. He continues to be hypoxemic. Chest x-rays continued to demonstrate bilateral infiltrates. He is presently being treated with intravenous aztreonam, intravenous vancomycin, and intravenous methylprednisolone. Exam - Constitutional Vitals: Period Temp Pulse Resp BP Sys/Grimes Pulse Ox Last 24 Hr 98.3 F-99.2 F 69-95 11-28 109-155/52-76 82-100 General appearance: no acute distress - Head Head exam: Present: normal inspection, normocephalic - Eye Eye exam: Present: EOMI Pupils: Present: JOZEF - Neck Neck exam: Present: normal inspection - Respiratory Respiratory exam: Present: rhonchi - Cardiovascular Cardiovascular exam: Present: regular rate and rhythm - GI/Abdominal GI/Abdominal exam: Present: normal bowel sounds, soft - Extremities Exam Extremities exam: Present: normal inspection - Back Exam Back exam: Present: normal inspection - Skin Skin exam: Present: normal color, warm, dry Results - Labs CBC & BMP: 06/10/16 06:08 06/10/16 06:08
[2016-06-10] MEDS: VENLAFAXINE XR 75 MG CAPSULE PO SCH ×3 (09:38→18:56)
[2016-06-10] MEDS: ENOXAPARIN 30 MG/0.3 ML SYRINGE SUBCUT SCH (09:39)
[2016-06-10] MEDS: FOLIC ACID 1 MG TABLET PO SCH (09:39)
[2016-06-10] MEDS: MEMANTINE 10 MG TABLET PO SCH ×2 (09:39→22:59)
[2016-06-10] MEDS: hydroCHLOROthiazide 25 MG TABLET PO SCH (09:39)
[2016-06-10] MEDS: amLODIPine 5 MG TABLET PER TUBE SCH (09:40)
[2016-06-10] MEDS: PANTOPRAZOLE 40 MG TABLET PO SCH (09:40)
[2016-06-10] MEDS: QUEtiapine 100 MG TABLET PER TUBE SCH (09:40)
[2016-06-10] MEDS: CLORAZEPATE 3.75 MG TABLET PO SCH ×2 (09:41→23:02)
[2016-06-10] MEDS: DESITIN 4OZ/NYSTATIN 15 GRAM MIXTURE PASTE TOP SCH ×2 (09:41→23:02)
[2016-06-10] MEDS: methylPREDNISolone SOD SUC 125 MG/2 ML VIAL IV SCH (09:41)
[2016-06-10] MEDS: ALLOPURINOL 300 MG TABLET PER TUBE SCH (09:41)
[2016-06-10] MEDS: ZALEPLON 5 MG CAPSULE PO SCH (22:59)
[2016-06-10] MEDS: DONEPEZIL 10 MG TABLET PER TUBE SCH (22:59)
[2016-06-11] MEDS: ALBUTEROL/IPRATROPIUM 3 ML NEB RESP TX SCH ×7 (00:45→23:38)
[2016-06-11] MEDS: VANCOMYCIN INJ 1,000 MG in SODIUM CHLORIDE 0.9% 250 ML IV SCH ×2 (03:06→17:00)
[2016-06-11] MEDS: AZTREONAM 1,000 MG in SODIUM CHLORIDE 0.9% 100 ML IV SCH ×3 (05:33→23:12)
[2016-06-11 06:19] LABS: Calcium 8.1 MG/DL (8.5-10.1); Osmolality,Calculated 280.7 MOS/KG (273-304); Potassium 4.4 MMOL/L (3.5-5.1); Prealbumin 17.7 MG/DL (20-40)
[2016-06-11] MEDS: methylPREDNISolone SOD SUC 125 MG/2 ML VIAL IV SCH (08:36)
[2016-06-11] MEDS: QUEtiapine 100 MG TABLET PER TUBE SCH (08:37)
[2016-06-11] MEDS: amLODIPine 5 MG TABLET PER TUBE SCH (08:37)
[2016-06-11] MEDS: CLORAZEPATE 3.75 MG TABLET PO SCH ×3 (08:37→23:07)
[2016-06-11] MEDS: MEMANTINE 10 MG TABLET PO SCH ×3 (08:37→23:07)
[2016-06-11] MEDS: PANTOPRAZOLE 40 MG TABLET PO SCH (08:37)
[2016-06-11] MEDS: ALLOPURINOL 300 MG TABLET PER TUBE SCH (08:37)
[2016-06-11] MEDS: FOLIC ACID 1 MG TABLET PO SCH (08:37)
[2016-06-11] MEDS: LEVOTHYROXINE 75 MCG TABLET PER TUBE SCH (08:37)
[2016-06-11] MEDS: hydroCHLOROthiazide 25 MG TABLET PO SCH (08:37)
[2016-06-11] MEDS: VENLAFAXINE XR 75 MG CAPSULE PO SCH ×3 (08:37→17:33)
[2016-06-11] MEDS: DESITIN 4OZ/NYSTATIN 15 GRAM MIXTURE PASTE TOP SCH ×2 (08:38→20:40)
--- NOTE | 2016-06-11 09:44 | Hospitalist Progress Note ---
Assessment and Plan (1) Respiratory failure Status: Acute Assessment and plan: His oxygen saturation today is 89% with an FiO2 of 100%. He is being followed by Dr. Vital of pulmonary. He continues to require frequent suctioning. Current Visit: Yes Qualifiers: Chronicity: acute on chronic Respiratory failure complication: hypoxia Qualified Code(s): J96.21 - Acute and chronic respiratory failure with hypoxia (2) Right lower lobe pneumonia Status: Acute Assessment and plan: He continues treatment with intravenous aztreonam and vancomycin. Current Visit: Yes Qualifiers: Pneumonia type: due to Haemophilus influenzae Qualified Code(s): J14 - Pneumonia due to Hemophilus influenzae (3) SAIMA (acute kidney injury) Status: Acute Assessment and plan: His BUN and creatinine are stable today at 32 and 1.0 respectively. Current Visit: Yes (4) COPD (chronic obstructive pulmonary disease) Status: Chronic Assessment and plan: He continues treatment with intravenous methylprednisolone, intravenous antibiotics, and albuterol ipratropium nebulizer therapy. Current Visit: Yes (5) Dementia Status: Chronic Assessment and plan: Stable. No intervention is planned at this time. Current Visit: Yes Qualifiers: Dementia type: Alzheimer's disease Alzheimer's disease onset: early-onset Dementia behavioral disturbance: without behavioral disturbance Qualified Code(s): G30.0 - Alzheimer's disease with early onset; F02.80 - Dementia in other diseases classified elsewhere without behavioral disturbance (6) Protein-calorie malnutrition, moderate Status: Chronic Assessment and plan: He has been receiving nasogastric tube feedings. Current Visit: Yes (7) HTN (hypertension) Status: Chronic Assessment and plan: His blood pressure is elevated today to 142/62. Current Visit: Yes Qualifiers: Hypertension type: essential hypertension Qualified Code(s): I10 - Essential (primary) hypertension Hospitalist: Subjective Interval history: Mr. Oconnell appears to be slowly improving. He continues treatment with intravenous aztreonam and vancomycin. He continues to be followed by Dr. Martínez pulmonary. Exam - Constitutional Vitals: Period Temp Pulse Resp BP Sys/Grimes Pulse Ox Last 24 Hr 96.7 F-99.4 F 69-92 22-36 111-142/45-65 86-96 General appearance: no acute distress, other (Nasogastric tube) - Head Head exam: Present: normal inspection, normocephalic - Eye Eye exam: Present: EOMI Pupils: Present: JOZEF - Neck Neck exam: Present: normal inspection - Respiratory Respiratory exam: Present: rhonchi - Cardiovascular Cardiovascular exam: Present: regular rate and rhythm - GI/Abdominal GI/Abdominal exam: Present: normal bowel sounds, soft - Extremities Exam Extremities exam: Present: normal inspection - Skin Skin exam: Present: normal color, warm, dry Results - Labs CBC & BMP: 06/10/16 06:08 06/11/16 04:50
[2016-06-11] MEDS: DEXTROSE 5% NACL 0.45% 1,000 ML IV SCH ×2 (10:36→10:37)
[2016-06-11] MEDS: ENOXAPARIN 30 MG/0.3 ML SYRINGE SUBCUT SCH (10:37)
--- NOTE | 2016-06-11 10:39 | Pulmonology Progress Note ---
Pulmonary - PN: Subj Interval history: Patient is an 81-year-old white man that has a history of COPD and came in with respiratory distress and pneumonia. He was intubated and transferred here. He has been reasonably stable on the ventilator. He does have bibasilar infiltrates worse on the right. He has grown out Haemophilus influenza is getting antibiotics. Over the weekend he did well on CPAP and was extubated . He has been very weak but did well last night. He is still getting vigorous respiratory therapy. He is more alert today and looks like his breathing is little better. He did not do well with swallowing still has a NG tube. He did have MRSA growing out of washings. The patient looked very short of breath yesterday but has done little better on BiPAP. His family said that he recognized him last night and had a better night. They thought he was rested in a little better. They did decide to make him a DNR. He does look like he is a little more comfortable today. Exam (Progress Note) - Constitutional Vitals: Period Temp Pulse Resp BP Sys/Grimes Pulse Ox Last 24 Hr 96.7 F-99.4 F 69-92 22-36 111-142/45-65 86-96 Exam: General appearance: no acute distress (Patient is chronically ill-appearing but seems to be reasonably comfortable at present) - Head Head exam: Present: normal inspection, normocephalic - Eye Eye exam: Present: EOMI, other (He has bilateral arcus). Absent: scleral icterus Pupils: Present: JOZEF - ENT ENT exam: Present: normal exam, he has the NG tube in place - Neck Neck exam: Absent: tenderness, thyromegaly - Respiratory Respiratory exam: Present: He has diminished breath sounds with prolonged expiration but his lungs sound a little better with less rhonchi. - Cardiovascular Cardiovascular exam: Present: regular rate and rhythm, no murmur or gallop. - GI/Abdominal GI/Abdominal exam: Present: Normal bowel sounds, soft. Absent: organomegaly, tenderness - Extremities Exam Extremities exam: Absent: calf tenderness, edema, his extremities are quite emaciated. - Neurological Exam Neurological exam: Present: He does move his extremities okay. He is extremely weak and cannot do much activity - Skin Skin exam: Present: warm, dry Results - Labs CBC & BMP: 06/10/16 06:08 06/11/16 04:50 Assessment and Plan (1) Respiratory failure Status: Acute Assessment and plan: Patient has had CO2 retention and was intubated on the ventilator . He has done okay off the ventilator now. He still has trouble clearing secretions but otherwise he is fairly stable at present. He is extremely weak and cannot do much activity at all. He has required some BiPAP but he seems a little better today. He is still getting vigorous respiratory therapy. His family does not want him back on the ventilator. Current Visit: Yes Qualifiers: Chronicity: acute on chronic Respiratory failure complication: hypoxia Qualified Code(s): J96.21 - Acute and chronic respiratory failure with hypoxia (2) Right lower lobe pneumonia Status: Acute Assessment and plan: The patient has right lower lobe consolidation and is on IV antibiotics. He has grown Haemophilus influenza out on culture and is getting his antibiotics. He also had MRSA growing out of washings. He is tolerating his medications and breathing better today. Current Visit: Yes Qualifiers: Pneumonia type: due to Haemophilus influenzae Qualified Code(s): J14 - Pneumonia due to Hemophilus influenzae (3) SAIMA (acute kidney injury) Status: Acute Assessment and plan: His creatinine has improved and is down to 1.0 today. Current Visit: Yes (4) COPD (chronic obstructive pulmonary disease) Status: Chronic Assessment and plan: Patient looks like he has severe COPD. We will continue with steroids and respiratory therapy. He still requires some suctioning. He is quite emaciated and does not look like he can do much activity at all. Overall he is very debilitated. Current Visit: Yes (5) Dementia Status: Chronic Assessment and plan: Patient has a history of dementia. He tries to talk a little bit is hard to understand. He does get restless at times Current Visit: Yes Qualifiers: Dementia type: Alzheimer's disease Alzheimer's disease onset: early-onset Dementia behavioral disturbance: without behavioral disturbance Qualified Code(s): G30.0 - Alzheimer's disease with early onset; F02.80 - Dementia in other diseases classified elsewhere without behavioral disturbance (6) Protein-calorie malnutrition, moderate Status: Chronic Assessment and plan: The patient will require supplemental nutrition. He is still getting tube feedings. Current Visit: Yes (7) HTN (hypertension) Status: Chronic Assessment and plan: Patient has a history of hypertension. He is hemodynamically stable. His blood pressure and heart rate are still reasonably stable. Current Visit: Yes Qualifiers: Hypertension type: essential hypertension Qualified Code(s): I10 - Essential (primary) hypertension (8) Hypothyroid Status: Chronic Assessment and plan: Patient will continue thyroid replacement. Current Visit: Yes Qualifiers: Hypothyroidism type: acquired Qualified Code(s): E03.9 - Hypothyroidism, unspecified
[2016-06-11] MEDS: MORPHINE 2 MG/1 ML SYRINGE IV PRN ×2 (17:33→20:40)
[2016-06-11] MEDS: DONEPEZIL 10 MG TABLET PER TUBE SCH ×2 (20:40→23:07)
[2016-06-11] MEDS: ZALEPLON 5 MG CAPSULE PO SCH (23:05)
[2016-06-12] MEDS: VANCOMYCIN INJ 1,000 MG in SODIUM CHLORIDE 0.9% 250 ML IV SCH ×2 (02:46→15:54)
[2016-06-12] MEDS: ALBUTEROL/IPRATROPIUM 3 ML NEB RESP TX SCH ×6 (03:33→23:39)
[2016-06-12] MEDS ORDERED: ACETAMINOPHEN 650 MG SUPP RECTAL PRN (05:45)
[2016-06-12] MEDS: AZTREONAM 1,000 MG in SODIUM CHLORIDE 0.9% 100 ML IV SCH ×3 (06:22→21:52)
[2016-06-12] MEDS: LEVOTHYROXINE 75 MCG TABLET PER TUBE SCH (09:45)
[2016-06-12] MEDS: MEMANTINE 10 MG TABLET PO SCH ×2 (09:46→21:55)
[2016-06-12] MEDS: hydroCHLOROthiazide 25 MG TABLET PO SCH (09:46)
[2016-06-12] MEDS: FOLIC ACID 1 MG TABLET PO SCH (09:46)
[2016-06-12] MEDS: QUEtiapine 100 MG TABLET PER TUBE SCH (09:46)
[2016-06-12] MEDS: PANTOPRAZOLE 40 MG TABLET PO SCH (09:46)
[2016-06-12] MEDS: amLODIPine 5 MG TABLET PER TUBE SCH (09:46)
[2016-06-12] MEDS: VENLAFAXINE XR 75 MG CAPSULE PO SCH ×2 (09:46→16:03)
[2016-06-12] MEDS: CLORAZEPATE 3.75 MG TABLET PO SCH ×2 (09:47→21:55)
[2016-06-12] MEDS: ALLOPURINOL 300 MG TABLET PER TUBE SCH (09:47)
[2016-06-12] MEDS: ENOXAPARIN 30 MG/0.3 ML SYRINGE SUBCUT SCH (09:48)
[2016-06-12] MEDS: methylPREDNISolone SOD SUC 125 MG/2 ML VIAL IV SCH (09:48)
[2016-06-12] MEDS: DESITIN 4OZ/NYSTATIN 15 GRAM MIXTURE PASTE TOP SCH ×2 (09:51→21:55)
--- NOTE | 2016-06-12 10:18 | Hospitalist Progress Note ---
Assessment and Plan (1) Respiratory failure Status: Acute Assessment and plan: His oxygen saturation today is 89% with an FiO2 of 100%. He is being followed by Dr. Vital of pulmonary. He continues to require frequent suctioning. Current Visit: Yes Qualifiers: Chronicity: acute on chronic Respiratory failure complication: hypoxia Qualified Code(s): J96.21 - Acute and chronic respiratory failure with hypoxia (2) Right lower lobe pneumonia Status: Acute Assessment and plan: He continues treatment with intravenous aztreonam and vancomycin. Current Visit: Yes Qualifiers: Pneumonia type: due to Haemophilus influenzae Qualified Code(s): J14 - Pneumonia due to Hemophilus influenzae (3) SAIMA (acute kidney injury) Status: Acute Assessment and plan: His BUN and creatinine are stable today at 32 and 1.0 respectively. Current Visit: Yes (4) COPD (chronic obstructive pulmonary disease) Status: Chronic Assessment and plan: He continues treatment with intravenous methylprednisolone, intravenous antibiotics, and albuterol ipratropium nebulizer therapy. Current Visit: Yes (5) Dementia Status: Chronic Assessment and plan: Stable. No intervention is planned at this time. Current Visit: Yes Qualifiers: Dementia type: Alzheimer's disease Alzheimer's disease onset: early-onset Dementia behavioral disturbance: without behavioral disturbance Qualified Code(s): G30.0 - Alzheimer's disease with early onset; F02.80 - Dementia in other diseases classified elsewhere without behavioral disturbance (6) Protein-calorie malnutrition, moderate Status: Chronic Assessment and plan: He has been receiving nasogastric tube feedings. Current Visit: Yes (7) HTN (hypertension) Status: Chronic Assessment and plan: His blood pressure is elevated today to 142/62. Current Visit: Yes Qualifiers: Hypertension type: essential hypertension Qualified Code(s): I10 - Essential (primary) hypertension Hospitalist: Subjective Interval history: Mr. Oconnell appears to be slowly improving. He is more awake and responsive. He continues treatment with intravenous aztreonam and vancomycin. He continues to be followed by Dr. Martínez of pulmonary. Exam - Constitutional Vitals: Period Temp Pulse Resp BP Sys/Grimes Pulse Ox Last 24 Hr 96.2 F-100.1 F 83-104 18-36 120-161/59-73 87-95 General appearance: no acute distress - Head Head exam: Present: normal inspection, normocephalic - Eye Eye exam: Present: EOMI Pupils: Present: JOZEF - Neck Neck exam: Present: normal inspection - Respiratory Respiratory exam: Present: rhonchi (Right sided) - Cardiovascular Cardiovascular exam: Present: regular rate and rhythm - GI/Abdominal GI/Abdominal exam: Present: normal bowel sounds, soft, other (Nontender with no palpable masses or hepatosplenomegaly.) - Extremities Exam Extremities exam: Present: normal inspection - Neurological Exam Neurological exam: Present: alert - Psychiatric Psychiatric exam: Present: normal affect, normal mood - Skin Skin exam: Present: normal color, warm, dry Results - Labs CBC & BMP: 06/10/16 06:08 06/11/16 04:50
--- NOTE | 2016-06-12 10:47 | Pulmonology Progress Note ---
Pulmonary - PN: Subj Interval history: This 81-year-old male has severe COPD. He is very debilitated and has dementia. He was ventilated and is now off the ventilator. The patient has made him a DO NOT RESUSCITATE. He is requiring facemask oxygen 50% Ventimask during the daytime. Sometimes he will wear the BiPAP at night and sometimes he will not. May require restraints for that. He continues on intravenous steroids as well as antibiotics for both Haemophilus influenza and MRSA that have grown out of respiratory secretions. Exam (Progress Note) - Constitutional Vitals: Period Temp Pulse Resp BP Sys/Grimes Pulse Ox Last 24 Hr 96.2 F-100.1 F 83-104 18-36 120-161/59-73 87-95 Exam: Patient is drowsy but arousable. Seems to be comfortable. Respiratory rate is in the high 20s. Facemask oxygen in place. Pupils react to light. Neck is supple. Chest shows coarse rhonchi bilaterally. Increased AP diameter and prolonged expiratory phase. Heart normal rate and rhythm no murmurs. Abdomen soft no masses. Extremities no clubbing cyanosis or edema. Results - Labs CBC & BMP: 06/10/16 06:08 06/11/16 04:50 Lab Results: I have reviewed the past 24 hour labs Assessment and Plan (1) Respiratory failure Status: Acute Assessment and plan: His PCO2 is been normal. Still requiring a good bit of oxygen sweats hypoxemic acute on chronic respiratory failure. Current Visit: Yes Qualifiers: Chronicity: acute on chronic Respiratory failure complication: hypoxia Qualified Code(s): J96.21 - Acute and chronic respiratory failure with hypoxia (2) Right lower lobe pneumonia Status: Acute Assessment and plan: He grew out Haemophilus influenza from sputum and methicillin-resistant staph aureus from bronchial washings. Being covered for both with vancomycin and aztreonam Current Visit: Yes Qualifiers: Pneumonia type: due to Haemophilus influenzae Qualified Code(s): J14 - Pneumonia due to Hemophilus influenzae (3) COPD (chronic obstructive pulmonary disease) Status: Chronic Assessment and plan: Continuing with steroids and bronchodilators. Prognosis is poor Current Visit: Yes (4) Protein-calorie malnutrition, moderate Status: Chronic Assessment and plan: Nutritional services addressing Current Visit: Yes
[2016-06-12] MEDS ORDERED: SODIUM CHLORIDE 0.9% 1,000 ML IV SCH (11:30)
[2016-06-12 11:54] LABS: Basophils % 0.1 % (0.0-0.8); Hemoglobin 13.6 GM/DL (14.0-18.0); Immature Granulocytes Absolute 0.82 #; Lymphocytes # 1.8 10*3/uL (1.4-4.0); Lymphocytes % 8.6 % (21.2-54.2); Mean Corpuscular HGB Conc 34.9 GM/DL (32-36); Mean Corpuscular Hemoglobin 30 PG (27-34); Mean Corpuscular Volume 86.7 FL (87-102); Mean Platelet Volume 10.1 FL (9.6-12.0); Monocytes # 0.7 10*3/uL (0.11-0.8); Monocytes % 3.5 % (1.7-12.7); NRBC # 0.02 10*3/uL; Neutrophils # 17.3 10*3/uL (1.4-7.4); Neutrophils % 83.8 % (38.7-73.9); Platelet Count 233 T/CUMM (130-400); Red Cell Distribution Width 15.2 % (9.3-17.3); White Blood Count 20.7 T/CUMM (4-12)
[2016-06-12 12:20] LABS: Band Neutrophils 1 % (0-10); Hypochromasia 1+; Lymphocytes 6 % (20-55); Platelet Estimate Adequate; Segmented Neutrophils 90 % (50-85); Total Cells Counted 100
[2016-06-12 12:28] LABS: Calcium 7.8 MG/DL (8.5-10.1); Osmolality,Calculated 270.2 MOS/KG (273-304)
[2016-06-12] MEDS: DEXTROSE 50% 25 GM/50 ML VIAL IV PRN (13:06)
[2016-06-12] MEDS: DEXTROSE 5% NACL 0.9% 1,000 ML IV SCH (13:34)
[2016-06-12] MEDS: ZALEPLON 5 MG CAPSULE PO SCH (21:55)
[2016-06-12] MEDS: DONEPEZIL 10 MG TABLET PER TUBE SCH (21:55)
[2016-06-13] MEDS: DEXTROSE 5% NACL 0.9% 1,000 ML IV SCH ×3 (01:54→15:00)
[2016-06-13] MEDS: VANCOMYCIN INJ 1,000 MG in SODIUM CHLORIDE 0.9% 250 ML IV SCH ×2 (02:28→16:18)
[2016-06-13] MEDS: ALBUTEROL/IPRATROPIUM 3 ML NEB RESP TX SCH ×5 (03:41→19:24)
[2016-06-13] MEDS: DEXTROSE 50% 25 GM/50 ML VIAL IV PRN (04:10)
[2016-06-13] MEDS: AZTREONAM 1,000 MG in SODIUM CHLORIDE 0.9% 100 ML IV SCH ×3 (06:05→21:11)
[2016-06-13] MEDS: LEVOTHYROXINE 75 MCG TABLET PER TUBE SCH (06:07)
[2016-06-13] MEDS: ENOXAPARIN 30 MG/0.3 ML SYRINGE SUBCUT SCH (09:22)
[2016-06-13] MEDS: methylPREDNISolone SOD SUC 125 MG/2 ML VIAL IV SCH (09:23)
--- NOTE | 2016-06-13 09:34 | Pulmonology Progress Note ---
Pulmonary - PN: Subj Interval history: This 81-year-old male has severe COPD. He is very debilitated and has dementia. He was ventilated and is now off the ventilator. The patient has made him a DO NOT RESUSCITATE. He is requiring facemask oxygen 50% Ventimask during the daytime. Sometimes he will wear the BiPAP at night and sometimes he will not. May require restraints for that. He continues on intravenous steroids as well as antibiotics for both Haemophilus influenza and MRSA that have grown out of respiratory secretions. 06/13/2016 this is a 81-year-old man with severe COPD that is debilitated and demented. He has COPD and was recently ventilated. He is now DO NOT RESUSCITATE. Family is asking if we can get his BiPAP off during the daytime so they can talk more. I think that would be reasonable. Hopefully low flow O2 can keep his O2 sat to 88% or above. If not we could use Ventimask. Exam (Progress Note) - Constitutional Vitals: Period Temp Pulse Resp BP Sys/Grimes Pulse Ox Last 24 Hr 97 F-100 F 75-110 16-26 121-142/63-72 90-97 Exam: Patient is drowsy but arousable. Seems to be comfortable. Respiratory rate is in the high 20s. Facemask BiPAP in place. Pupils react to light. Neck is supple. Chest shows coarse rhonchi bilaterally. Increased AP diameter and prolonged expiratory phase. Heart normal rate and rhythm no murmurs. Abdomen soft no masses. Extremities no clubbing cyanosis or edema. Results - Labs CBC & BMP: 06/12/16 11:04 06/12/16 11:04 Lab Results: I have reviewed the past 24 hour labs Assessment and Plan (1) Respiratory failure Status: Acute Assessment and plan: His PCO2 is been normal. Still requiring a good bit of oxygen sweats hypoxemic acute on chronic respiratory failure. 06/13/2016 still requiring a good bit of oxygen. Using BiPAP. We will try to just use BiPAP at night. Current Visit: Yes Qualifiers: Chronicity: acute on chronic Respiratory failure complication: hypoxia Qualified Code(s): J96.21 - Acute and chronic respiratory failure with hypoxia (2) Right lower lobe pneumonia Status: Acute Assessment and plan: He grew out Haemophilus influenza from sputum and methicillin-resistant staph aureus from bronchial washings. Being covered for both with vancomycin and aztreonam 06/13/2016 continuing broad-spectrum antibiotics. Current Visit: Yes Qualifiers: Pneumonia type: due to Haemophilus influenzae Qualified Code(s): J14 - Pneumonia due to Hemophilus influenzae (3) COPD (chronic obstructive pulmonary disease) Status: Chronic Assessment and plan: Continuing with steroids and bronchodilators. Prognosis is poor 06/13/2016 continuing bronchodilators, steroids, antibiotics. Current Visit: Yes (4) Protein-calorie malnutrition, moderate Status: Chronic Assessment and plan: Nutritional services addressing 06/13/2016 continuing nutritional support. Current Visit: Yes
[2016-06-13] MEDS: hydroCHLOROthiazide 25 MG TABLET PO SCH (10:14)
[2016-06-13] MEDS: VENLAFAXINE XR 75 MG CAPSULE PO SCH ×2 (10:14→16:46)
[2016-06-13] MEDS: amLODIPine 5 MG TABLET PER TUBE SCH (10:14)
[2016-06-13] MEDS: PANTOPRAZOLE 40 MG TABLET PO SCH (10:14)
[2016-06-13] MEDS: FOLIC ACID 1 MG TABLET PO SCH (10:14)
[2016-06-13] MEDS: MEMANTINE 10 MG TABLET PO SCH ×2 (10:14→21:14)
[2016-06-13] MEDS: ALLOPURINOL 300 MG TABLET PER TUBE SCH (10:15)
[2016-06-13] MEDS: QUEtiapine 100 MG TABLET PER TUBE SCH (10:15)
[2016-06-13] MEDS: DESITIN 4OZ/NYSTATIN 15 GRAM MIXTURE PASTE TOP SCH ×2 (10:15→21:14)
[2016-06-13] MEDS: CLORAZEPATE 3.75 MG TABLET PO SCH ×2 (10:15→21:14)
--- NOTE | 2016-06-13 10:54 | Hospitalist Progress Note ---
Assessment and Plan (1) Respiratory failure Status: Acute Assessment and plan: His oxygen saturation today is 98%. He is being followed by Dr. Vital of pulmonary. Current Visit: Yes Qualifiers: Chronicity: acute on chronic Respiratory failure complication: hypoxia Qualified Code(s): J96.21 - Acute and chronic respiratory failure with hypoxia (2) Right lower lobe pneumonia Status: Acute Assessment and plan: He continues treatment with intravenous aztreonam and vancomycin. Current Visit: Yes Qualifiers: Pneumonia type: due to Haemophilus influenzae Qualified Code(s): J14 - Pneumonia due to Hemophilus influenzae (3) SAIMA (acute kidney injury) Status: Acute Assessment and plan: His BUN and creatinine were 23 and 0.90 yesterday respectively. Current Visit: Yes (4) COPD (chronic obstructive pulmonary disease) Status: Chronic Assessment and plan: He continues treatment with intravenous methylprednisolone, intravenous antibiotics, and albuterol ipratropium nebulizer therapy. Current Visit: Yes (5) Dementia Status: Chronic Assessment and plan: Stable. No intervention is planned at this time. Current Visit: Yes Qualifiers: Dementia type: Alzheimer's disease Alzheimer's disease onset: early-onset Dementia behavioral disturbance: without behavioral disturbance Qualified Code(s): G30.0 - Alzheimer's disease with early onset; F02.80 - Dementia in other diseases classified elsewhere without behavioral disturbance (6) Protein-calorie malnutrition, moderate Status: Chronic Assessment and plan: He has been receiving nasogastric tube feedings. Current Visit: Yes (7) HTN (hypertension) Status: Chronic Assessment and plan: His blood pressure today is 121/63. Current Visit: Yes Qualifiers: Hypertension type: essential hypertension Qualified Code(s): I10 - Essential (primary) hypertension Hospitalist: Subjective Interval history: Mr. Oconnell is an 81-year-old white male with severe chronic obstructive pulmonary disease, dementia, and debility who was hospitalized here with acute exacerbation of COPD, right lower lobe pneumonia, and acute on chronic respiratory failure. Sputum cultures demonstrated Haemophilus influenza A. He is presently being treated with intravenous aztreonam and vancomycin. He is being followed by Dr. Vargas of pulmonary. Exam - Constitutional Vitals: Period Temp Pulse Resp BP Sys/Grimes Pulse Ox Last 24 Hr 97 F-100 F 75-110 16-26 121-142/63-72 90-98 General appearance: no acute distress - Head Head exam: Present: normal inspection, normocephalic - Eye Eye exam: Present: EOMI Pupils: Present: JOZEF - Neck Neck exam: Present: normal inspection - Respiratory Respiratory exam: Present: rhonchi - Cardiovascular Cardiovascular exam: Present: regular rate and rhythm - GI/Abdominal GI/Abdominal exam: Present: normal bowel sounds, soft, other (Nontender with no palpable masses or hepatosplenomegaly.) - Skin Skin exam: Present: normal color, warm, dry Results - Labs CBC & BMP: 06/12/16 11:04 06/12/16 11:04
[2016-06-13] MEDS: ZALEPLON 5 MG CAPSULE PO SCH (21:14)
[2016-06-13] MEDS: DONEPEZIL 10 MG TABLET PER TUBE SCH (21:14)
[2016-06-13] MEDS ORDERED: LORazepam 2 MG/1 ML VIAL IV ONE (22:53)
[2016-06-14] MEDS: ALBUTEROL/IPRATROPIUM 3 ML NEB RESP TX SCH ×7 (00:37→23:46)
[2016-06-14] MEDS: VANCOMYCIN INJ 1,000 MG in SODIUM CHLORIDE 0.9% 250 ML IV SCH ×2 (04:04→16:10)
[2016-06-14 06:34] LABS: Basophils % 0.1 % (0.0-0.8); Hematocrit 35.3 VOL% (42.0-52.0); Hemoglobin 11.8 GM/DL (14.0-18.0); Immature Granulocytes % 4.1 %; Lymphocytes # 1.5 10*3/uL (1.4-4.0); Lymphocytes % 10.4 % (21.2-54.2); Mean Corpuscular HGB Conc 33.4 GM/DL (32-36); Mean Corpuscular Hemoglobin 30 PG (27-34); Mean Corpuscular Volume 88.3 FL (87-102); Monocytes # 0.9 10*3/uL (0.11-0.8); Neutrophils # 11.7 10*3/uL (1.4-7.4); Neutrophils % 79.4 % (38.7-73.9); Platelet Count 259 T/CUMM (130-400); Red Cell Distribution Width 15.6 % (9.3-17.3); White Blood Count 14.7 T/CUMM (4-12)
[2016-06-14] MEDS: AZTREONAM 1,000 MG in SODIUM CHLORIDE 0.9% 100 ML IV SCH ×3 (06:40→22:57)
[2016-06-14] MEDS: LEVOTHYROXINE 75 MCG TABLET PER TUBE SCH (06:57)
[2016-06-14 07:01] LABS: Calcium 7.7 MG/DL (8.5-10.1); Osmolality,Calculated 280.3 MOS/KG (273-304); Potassium 3.9 MMOL/L (3.5-5.1)
[2016-06-14 07:38] LABS: Hypochromasia 1+; Lymphocytes 13 % (20-55); Microcytosis 1+; Segmented Neutrophils 83 % (50-85); Total Cells Counted 100
[2016-06-14 07:39] LABS: Platelet Estimate Normal
[2016-06-14] MEDS: DEXTROSE 5% NACL 0.9% 1,000 ML IV SCH ×3 (08:37→20:00)
--- NOTE | 2016-06-14 09:21 | Pulmonology Progress Note ---
Pulmonary - PN: Subj Interval history: Patient is an 81-year-old white man that has a history of COPD and came in with respiratory distress and pneumonia. He was intubated and transferred here. He has been reasonably stable on the ventilator. He does have bibasilar infiltrates worse on the right. He has grown out Haemophilus influenza is getting antibiotics. Over the weekend he did well on CPAP and was extubated . He has been very weak but did well last night. He is still getting vigorous respiratory therapy. He is more alert today and looks like his breathing is little better. He did not do well with swallowing still has a NG tube. He did have MRSA growing out of washings. The patient has done better over the weekend. He did get a little restless and required Tranxene again. He has been on and off BiPAP and breathing a little better. He apparently was more alert over the weekend. Overall he has been reasonably stable. Exam (Progress Note) - Constitutional Vitals: Period Temp Pulse Resp BP Sys/Grimes Pulse Ox Last 24 Hr 97 F-98.9 F 24-92 18-40 124-155/65-82 92-99 Exam: General appearance: no acute distress (Patient is chronically ill-appearing but seems to be reasonably comfortable at present. He is resting well now.) - Head Head exam: Present: normal inspection, normocephalic - Eye Eye exam: Present: EOMI, other (He has bilateral arcus). Absent: scleral icterus Pupils: Present: JOZEF - ENT ENT exam: Present: normal exam, he has the NG tube in place - Neck Neck exam: Absent: tenderness, thyromegaly - Respiratory Respiratory exam: Present: He has diminished breath sounds with prolonged expiration but I do not hear any wheezing now. - Cardiovascular Cardiovascular exam: Present: regular rate and rhythm, no murmur or gallop. - GI/Abdominal GI/Abdominal exam: Present: Normal bowel sounds, soft. Absent: organomegaly, tenderness - Extremities Exam Extremities exam: Absent: calf tenderness, edema, his extremities are quite emaciated. - Neurological Exam Neurological exam: Present: He does move his extremities okay. He is extremely weak and cannot do much activity - Skin Skin exam: Present: warm, dry Results - Labs CBC & BMP: 06/14/16 05:48 06/14/16 05:48 Assessment and Plan (1) Respiratory failure Status: Acute Assessment and plan: Patient has had CO2 retention and was intubated on the ventilator . He has done okay off the ventilator now. He still has trouble clearing secretions but otherwise he is fairly stable at present. He is extremely weak and cannot do much activity at all. He has required some BiPAP but he seems a little better today. He is resting reasonably well at present. He does require some sedation at times. Current Visit: Yes Qualifiers: Chronicity: acute on chronic Respiratory failure complication: hypoxia Qualified Code(s): J96.21 - Acute and chronic respiratory failure with hypoxia (2) Right lower lobe pneumonia Status: Acute Assessment and plan: The patient has right lower lobe consolidation and is on IV antibiotics. He has grown Haemophilus influenza out on culture and is getting his antibiotics. He also had MRSA growing out of washings. He does seem to be breathing better now. Current Visit: Yes Qualifiers: Pneumonia type: due to Haemophilus influenzae Qualified Code(s): J14 - Pneumonia due to Hemophilus influenzae (3) SAIMA (acute kidney injury) Status: Acute Assessment and plan: His creatinine has improved and is down to 0.7 today. Current Visit: Yes (4) COPD (chronic obstructive pulmonary disease) Status: Chronic Assessment and plan: Patient looks like he has severe COPD. We will continue with steroids and respiratory therapy. He still requires some suctioning. He is quite emaciated and does not look like he can do much activity at all. Overall he is very debilitated. Current Visit: Yes (5) Dementia Status: Chronic Assessment and plan: Patient has a history of dementia. He tries to talk a little bit is hard to understand. He does get restless at times. He did require some sedation earlier today. Current Visit: Yes Qualifiers: Dementia type: Alzheimer's disease Alzheimer's disease onset: early-onset Dementia behavioral disturbance: without behavioral disturbance Qualified Code(s): G30.0 - Alzheimer's disease with early onset; F02.80 - Dementia in other diseases classified elsewhere without behavioral disturbance (6) Protein-calorie malnutrition, moderate Status: Chronic Assessment and plan: The patient will require supplemental nutrition. He is still getting tube feedings. Current Visit: Yes (7) HTN (hypertension) Status: Chronic Assessment and plan: Patient has a history of hypertension. He is hemodynamically stable. His blood pressure and heart rate are still reasonably stable. Current Visit: Yes Qualifiers: Hypertension type: essential hypertension Qualified Code(s): I10 - Essential (primary) hypertension (8) Hypothyroid Status: Chronic Assessment and plan: Patient will continue thyroid replacement. Current Visit: Yes Qualifiers: Hypothyroidism type: acquired Qualified Code(s): E03.9 - Hypothyroidism, unspecified
[2016-06-14] MEDS: methylPREDNISolone SOD SUC 125 MG/2 ML VIAL IV SCH (09:33)
[2016-06-14] MEDS: ENOXAPARIN 30 MG/0.3 ML SYRINGE SUBCUT SCH (09:33)
[2016-06-14] MEDS: MEMANTINE 10 MG TABLET PO SCH ×2 (09:43→22:54)
[2016-06-14] MEDS: hydroCHLOROthiazide 25 MG TABLET PO SCH (09:43)
[2016-06-14] MEDS: FOLIC ACID 1 MG TABLET PO SCH (09:43)
[2016-06-14] MEDS: VENLAFAXINE XR 75 MG CAPSULE PO SCH ×2 (09:43→17:15)
[2016-06-14] MEDS: amLODIPine 5 MG TABLET PER TUBE SCH (09:44)
[2016-06-14] MEDS: QUEtiapine 100 MG TABLET PER TUBE SCH (09:44)
[2016-06-14] MEDS: PANTOPRAZOLE 40 MG TABLET PO SCH (09:44)
[2016-06-14] MEDS: CLORAZEPATE 3.75 MG TABLET PO SCH (09:45)
[2016-06-14] MEDS: DESITIN 4OZ/NYSTATIN 15 GRAM MIXTURE PASTE TOP SCH ×2 (09:45→22:59)
[2016-06-14] MEDS: ALLOPURINOL 300 MG TABLET PER TUBE SCH (09:46)
--- NOTE | 2016-06-14 10:27 | Hospitalist Progress Note ---
Assessment and Plan (1) Right lower lobe pneumonia Status: Acute Assessment and plan: Impression: 1. Right lower lobe pneumonia, Haemophilus influenza and/or MRSA 2. COPD 3. Dementia 4. Deconditioning Plan: Physical therapy evaluation. Speech therapy evaluation once he wakes up for swallowing assessment. Family is interested in swing bed prior to discharge home. Apparently, his functional status was pretty good. This note was completed using [employer] voice recognition software. There may be crossing supervisor errors as a result. Current Visit: Yes Qualifiers: Pneumonia type: due to Haemophilus influenzae Qualified Code(s): J14 - Pneumonia due to Hemophilus influenzae Hospitalist: Subjective Interval history: Follow-up right-sided pneumonia with MRSA and/or Haemophilus influenza, dementia , and deconditioning. The patient has been moved out of the ICU. I was able to speak with the family this morning. They are interested in pursuing swing bed. They say that his functional status prior to hospitalization was that he was up and about at home , able to walk without an assistive device, and able to feed himself. They report that he has been more alert since the institution of oxygen. He apparently is on oxygen at home, but has never been on BiPAP or CPAP. They report a diagnosis of COPD. Currently, the patient is on several sedatives, and I could not get him to wake up for an examination or interview this morning. Exam - Constitutional Vitals: Period Temp Pulse Resp BP Sys/Grimes Pulse Ox Last 24 Hr 97 F-98.9 F 24-92 18-40 124-155/65-82 92-99 Vital signs are noted above. Heart is regular with distant tones. He has a few rhonchi in the chest, louder on the right. Abdomen is soft with no mass. I could not get him to arouse to verbal or tactile stimulation. Results - Labs CBC & BMP: 06/14/16 05:48 06/14/16 05:48 Lab Results: I have reviewed the past 24 hour labs
[2016-06-14] MEDS: HALOPERIDOL 5 MG/ML AMP IM PRN (13:44)
[2016-06-14] MEDS: DONEPEZIL 10 MG TABLET PER TUBE SCH (22:55)
[2016-06-15] MEDS: MEMANTINE 10 MG TABLET PO SCH ×3 (00:40→21:11)
[2016-06-15] MEDS: DONEPEZIL 10 MG TABLET PER TUBE SCH ×2 (00:40→21:12)
[2016-06-15] MEDS: DEXTROSE 5% NACL 0.9% 1,000 ML IV SCH ×2 (03:23→21:01)
[2016-06-15] MEDS: VANCOMYCIN INJ 1,000 MG in SODIUM CHLORIDE 0.9% 250 ML IV SCH ×2 (03:24→15:09)
[2016-06-15] MEDS: ALBUTEROL/IPRATROPIUM 3 ML NEB RESP TX SCH ×6 (03:53→22:50)
[2016-06-15] MEDS: DEXTROSE 50% 25 GM/50 ML VIAL IV PRN (06:34)
[2016-06-15] MEDS: AZTREONAM 1,000 MG in SODIUM CHLORIDE 0.9% 100 ML IV SCH ×3 (06:41→21:11)
[2016-06-15] MEDS: methylPREDNISolone SOD SUC 125 MG/2 ML VIAL IV SCH (07:59)
[2016-06-15] MEDS: ENOXAPARIN 30 MG/0.3 ML SYRINGE SUBCUT SCH (08:00)
[2016-06-15] MEDS: DESITIN 4OZ/NYSTATIN 15 GRAM MIXTURE PASTE TOP SCH ×2 (08:01→21:04)
--- NOTE | 2016-06-15 08:56 | Hospitalist Progress Note ---
Assessment and Plan (1) Right lower lobe pneumonia Status: Acute Assessment and plan: Impression: 1. Right lower lobe pneumonia, Haemophilus influenza and/or MRSA 2. COPD 3. Dementia 4. Deconditioning 5. Possible aspiration. Plan: Continue physical therapy and speech therapy. Await recommendations for swing bed. Remove Young catheter This note was completed using [employer] voice recognition software. There may be health program manager errors as a result. Current Visit: Yes Qualifiers: Pneumonia type: due to Haemophilus influenzae Qualified Code(s): J14 - Pneumonia due to Hemophilus influenzae Hospitalist: Subjective Interval history: Follow-up Alzheimer's disease, deconditioning, and right sided pneumonia with MRSA and/or Haemophilus influenza. The patient is awake and conversant today. He is using nasal oxygen, and is tolerating it well. He has pulled out his NG tube and his IV. I am concerned that the Young catheter might be next. He apparently aspirated during speech therapy yesterday. Physical therapy was able to get him to move his legs, but he did not sit up on the side of the bed or walk. The granddaughter tells me that he has been asking for liquids to drink. Exam - Constitutional Vitals: Period Temp Pulse Resp BP Sys/Grimes Pulse Ox Last 24 Hr 96.7 F-98.8 F 54-88 18-29 104-175/64-85 93-99 Vital signs are noted above. Heart is regular with extremely distant tones. He is not moving much air, but I do not hear any wheezes. Abdomen is soft with good bowel sounds. He is awake and conversant, but confused. Results - Labs CBC & BMP: 06/14/16 05:48 06/14/16 05:48
[2016-06-15] MEDS: VENLAFAXINE XR 75 MG CAPSULE PO SCH ×2 (09:08→17:00)
[2016-06-15] MEDS: LEVOTHYROXINE 75 MCG TABLET PER TUBE SCH (09:08)
[2016-06-15] MEDS: FOLIC ACID 1 MG TABLET PO SCH (09:08)
[2016-06-15] MEDS: PANTOPRAZOLE 40 MG TABLET PO SCH (09:09)
[2016-06-15] MEDS: hydroCHLOROthiazide 25 MG TABLET PO SCH (09:09)
[2016-06-15] MEDS: amLODIPine 5 MG TABLET PER TUBE SCH (09:09)
[2016-06-15] MEDS: ALLOPURINOL 300 MG TABLET PER TUBE SCH (09:09)
--- NOTE | 2016-06-15 11:57 | XRay Report ---
History: Shortness of breath Date: 06/15/2016 Study: Chest x-ray AP portable Comparison exam: June 07, 2016 chest x-ray The nasogastric tube has been removed. There is borderline prominence of the cardiac silhouette. The mediastinal contours are unchanged. There is some patchy and strandy atelectasis/infiltrate in the lower lobes, left greater than right, as before. There is actually improved aeration in the lung bases bilaterally since the previous study. There is mild left pleural effusion. Right pleural effusion is improved. There is no new or worsening infiltrate. The pulmonary vasculature is borderline prominent. The mediastinal contours are unchanged. Impression: Continued bibasilar pulmonary edema/infiltrate with interval improvement compared to the previous study. Cardiomegaly and borderline pulmonary venous hypertension appearance. PROCEDURE INTERPRETED AT [facility] DEPARTMENT OF RADIOLOGY Final Report Signed by: Dr. Bisi Wade
[2016-06-15] MEDS: HALOPERIDOL 5 MG/ML AMP IM PRN ×2 (15:03→21:08)
--- NOTE | 2016-06-15 15:22 | Pulmonology Progress Note ---
Pulmonary - PN: Subj Interval history: Patient is an 81-year-old white man that has a history of COPD and came in with respiratory distress and pneumonia. He was intubated and transferred here. He has been reasonably stable on the ventilator. He does have bibasilar infiltrates worse on the right. He has grown out Haemophilus influenza is getting antibiotics. Over the weekend he did well on CPAP and was extubated . He has been very weak but did well last night. He is still getting vigorous respiratory therapy. He is more alert today and looks like his breathing is little better. He did not do well with swallowing still has a NG tube. He did have MRSA growing out of washings. Patient has continued to improve some. He had a fairly good night and is resting well. He is much more alert this morning. He feels like his breathing is better and is not that short of breath now. He does seem to be more alert and coughing better. His chest x-ray looks a little better. Exam (Progress Note) - Constitutional Vitals: Period Temp Pulse Resp BP Sys/Grimes Pulse Ox Last 24 Hr 98.2 F-98.8 F 60-88 18-29 104-175/64-84 93-99 Exam: General appearance: no acute distress (Patient is chronically ill-appearing but is much more alert today.) - Head Head exam: Present: normal inspection, normocephalic - Eye Eye exam: Present: EOMI, other (He has bilateral arcus). Absent: scleral icterus Pupils: Present: JOZEF - ENT ENT exam: Present: normal exam - Neck Neck exam: Absent: tenderness, thyromegaly - Respiratory Respiratory exam: Present: He has diminished breath sounds with prolonged expiration but I do not hear any wheezing now. - Cardiovascular Cardiovascular exam: Present: regular rate and rhythm, no murmur or gallop. - GI/Abdominal GI/Abdominal exam: Present: Normal bowel sounds, soft. Absent: organomegaly, tenderness - Extremities Exam Extremities exam: Absent: calf tenderness, edema, his extremities are quite emaciated. - Neurological Exam Neurological exam: Present: He does move his extremities okay. He is definitely more alert. - Skin Skin exam: Present: warm, dry Results - Labs CBC & BMP: 06/14/16 05:48 06/14/16 05:48 - Diagnostic Findings Procedure: Chest x-ray: image reviewed by me, report reviewed by me (Chest x- ray shows COPD changes with minimal atelectasis in the bases.) Assessment and Plan (1) Respiratory failure Status: Acute Assessment and plan: Patient has had CO2 retention and was intubated on the ventilator . He has done okay off the ventilator now. He still has trouble clearing secretions but otherwise he is fairly stable at present. He is much more alert today and seems like he is breathing much better Current Visit: Yes Qualifiers: Chronicity: acute on chronic Respiratory failure complication: hypoxia Qualified Code(s): J96.21 - Acute and chronic respiratory failure with hypoxia (2) Right lower lobe pneumonia Status: Acute Assessment and plan: The patient has right lower lobe consolidation and is on IV antibiotics. He has grown Haemophilus influenza out on culture and is getting his antibiotics. He also had MRSA growing out of washings. His chest x-ray is much improved now. Current Visit: Yes Qualifiers: Pneumonia type: due to Haemophilus influenzae Qualified Code(s): J14 - Pneumonia due to Hemophilus influenzae (3) SAIMA (acute kidney injury) Status: Acute Assessment and plan: His creatinine has improved and is down to 0.7 today. Current Visit: Yes (4) COPD (chronic obstructive pulmonary disease) Status: Chronic Assessment and plan: Patient looks like he has severe COPD. We will continue with steroids and respiratory therapy. He still requires some suctioning. He is quite emaciated and does not look like he can do much activity at all. Overall he is very debilitated. Current Visit: Yes (5) Dementia Status: Chronic Assessment and plan: Patient has a history of dementia. He tries to talk a little bit is hard to understand. He is much more alert today Current Visit: Yes Qualifiers: Dementia type: Alzheimer's disease Alzheimer's disease onset: early-onset Dementia behavioral disturbance: without behavioral disturbance Qualified Code(s): G30.0 - Alzheimer's disease with early onset; F02.80 - Dementia in other diseases classified elsewhere without behavioral disturbance (6) Protein-calorie malnutrition, moderate Status: Chronic Assessment and plan: The patient will require supplemental nutrition. He is trying to eat a little bit better. Current Visit: Yes (7) HTN (hypertension) Status: Chronic Assessment and plan: Patient has a history of hypertension. He is hemodynamically stable. His blood pressure and heart rate are still reasonably stable. Current Visit: Yes Qualifiers: Hypertension type: essential hypertension Qualified Code(s): I10 - Essential (primary) hypertension (8) Hypothyroid Status: Chronic Assessment and plan: Patient will continue thyroid replacement. Current Visit: Yes Qualifiers: Hypothyroidism type: acquired Qualified Code(s): E03.9 - Hypothyroidism, unspecified
[2016-06-16] MEDS: ALBUTEROL/IPRATROPIUM 3 ML NEB RESP TX SCH ×5 (03:15→19:30)
[2016-06-16] MEDS: DEXTROSE 50% 25 GM/50 ML VIAL IV PRN (04:19)
[2016-06-16] MEDS: HALOPERIDOL 5 MG/ML AMP IM PRN (05:06)
[2016-06-16] MEDS: AZTREONAM 1,000 MG in SODIUM CHLORIDE 0.9% 100 ML IV SCH ×3 (07:07→23:00)
[2016-06-16] MEDS: hydroCHLOROthiazide 25 MG TABLET PO SCH (08:06)
[2016-06-16] MEDS: LEVOTHYROXINE 75 MCG TABLET PER TUBE SCH (08:06)
[2016-06-16] MEDS: FOLIC ACID 1 MG TABLET PO SCH (08:06)
[2016-06-16] MEDS: VENLAFAXINE XR 75 MG CAPSULE PO SCH ×2 (08:06→16:27)
[2016-06-16] MEDS: predniSONE 20 MG TABLET PO SCH (08:07)
[2016-06-16] MEDS: amLODIPine 5 MG TABLET PER TUBE SCH (08:07)
[2016-06-16] MEDS: MEMANTINE 10 MG TABLET PO SCH ×2 (08:07→23:02)
[2016-06-16] MEDS: ALLOPURINOL 300 MG TABLET PER TUBE SCH (08:07)
[2016-06-16] MEDS: PANTOPRAZOLE 40 MG TABLET PO SCH (08:07)
--- NOTE | 2016-06-16 08:26 | Hospitalist Progress Note ---
Assessment and Plan (1) Right lower lobe pneumonia Status: Acute Assessment and plan: Impression: 1. Right lower lobe pneumonia, Haemophilus influenza and/or MRSA 2. COPD 3. Dementia 4. Deconditioning 5. Possible aspiration. Plan: Consult GI for PEG tube placement. Continue to pursue discharge planning. This note was completed using [employer] voice recognition software. There may be director of primary errors as a result. Current Visit: Yes Qualifiers: Pneumonia type: due to Haemophilus influenzae Qualified Code(s): J14 - Pneumonia due to Hemophilus influenzae Hospitalist: Subjective Interval history: Follow-up pneumonia, COPD, dementia, probable aspiration. The patient became agitated again last night, and again discontinued his IV. Fortunately, we had removed his Young catheter yesterday. He failed another swallowing study, and family is interested in having a PEG tube placed. We discussed the fact that this would not completely prevent aspiration, and they understand the ongoing risk of the same, even with the PEG tube in place. Currently, he is back on BiPAP. Exam - Constitutional Vitals: Period Temp Pulse Resp BP Sys/Grimes Pulse Ox Last 24 Hr 97.6 F-99.2 F 52-98 18-25 128-177/70-96 92-99 Vital signs are noted above. He is poorly responsive, and wearing a BiPAP mask. Cardiac examination reveals a regular rhythm. Heart tones are difficult to hear over the BiPAP noise. He has a prolonged expiratory phase, but I could not hear any rales due to the noise of the BiPAP device. Results - Labs CBC & BMP: 06/14/16 05:48 06/14/16 05:48
[2016-06-16] MEDS: ENOXAPARIN 30 MG/0.3 ML SYRINGE SUBCUT SCH (08:30)
--- NOTE | 2016-06-16 08:46 | Pulmonology Progress Note ---
Pulmonary - PN: Subj Interval history: Patient is an 81-year-old white man that has a history of COPD and came in with respiratory distress and pneumonia. He was intubated and transferred here. He has been reasonably stable on the ventilator. He does have bibasilar infiltrates worse on the right. He has grown out Haemophilus influenza is getting antibiotics. Over the weekend he did well on CPAP and was extubated . He has been very weak but did well last night. He is still getting vigorous respiratory therapy. He is more alert today and looks like his breathing is little better. He did not do well with swallowing still has a NG tube. He did have MRSA growing out of washings. Patient looks much better yesterday but last night he became agitated again. He did have to go back on BiPAP. He did not do well with a swallowing evaluation and his family does want a PEG tube. He does seem to be breathing comfortably on BiPAP. Overall he is quite debilitated. Exam (Progress Note) - Constitutional Vitals: Period Temp Pulse Resp BP Sys/Grimes Pulse Ox Last 24 Hr 97.6 F-99.2 F 52-98 18-25 128-177/70-96 92-99 Exam: General appearance: no acute distress (Patient is chronically ill-appearing. He is resting fairly well on BiPAP but apparently does get very agitated at times.) - Head Head exam: Present: normal inspection, normocephalic - Eye Eye exam: Present: EOMI, other (He has bilateral arcus). Absent: scleral icterus Pupils: Present: JOZEF - ENT ENT exam: Present: normal exam, he has a BiPAP mask in place. - Neck Neck exam: Absent: tenderness, thyromegaly - Respiratory Respiratory exam: Present: He has diminished breath sounds with prolonged expiration. He has a barrel shaped chest with distant breath sounds but no wheezing now. - Cardiovascular Cardiovascular exam: Present: regular rate and rhythm, no murmur or gallop. - GI/Abdominal GI/Abdominal exam: Present: Normal bowel sounds, soft. Absent: organomegaly, tenderness - Extremities Exam Extremities exam: Absent: calf tenderness, edema, his extremities are quite emaciated. - Neurological Exam Neurological exam: Present: He does move his extremities okay. He is sleepy this morning. - Skin Skin exam: Present: warm, dry Results - Labs CBC & BMP: 06/14/16 05:48 06/14/16 05:48 Assessment and Plan (1) Respiratory failure Status: Acute Assessment and plan: Patient has had CO2 retention and was intubated on the ventilator . He has done okay off the ventilator now. He has required BiPAP off and on but he is breathing a little better. Current Visit: Yes Qualifiers: Chronicity: acute on chronic Respiratory failure complication: hypoxia Qualified Code(s): J96.21 - Acute and chronic respiratory failure with hypoxia (2) Right lower lobe pneumonia Status: Acute Assessment and plan: The patient has right lower lobe consolidation and is on IV antibiotics. He has grown Haemophilus influenza out on culture and is getting his antibiotics. He also had MRSA growing out of washings. His chest x-ray is much improved now. He is continuing with respiratory therapy and antibiotics. Current Visit: Yes Qualifiers: Pneumonia type: due to Haemophilus influenzae Qualified Code(s): J14 - Pneumonia due to Hemophilus influenzae (3) SAIMA (acute kidney injury) Status: Acute Assessment and plan: His creatinine has improved and is down to 0.7 today. Current Visit: Yes (4) COPD (chronic obstructive pulmonary disease) Status: Chronic Assessment and plan: Patient looks like he has severe COPD. We will continue with steroids and respiratory therapy. He still requires some suctioning. He is quite emaciated and does not look like he can do much activity at all. Overall he is very debilitated. Current Visit: Yes (5) Dementia Status: Chronic Assessment and plan: Patient has a history of dementia. He tries to talk a little bit but is hard to understand. He is sleepy this morning. Current Visit: Yes Qualifiers: Dementia type: Alzheimer's disease Alzheimer's disease onset: early-onset Dementia behavioral disturbance: without behavioral disturbance Qualified Code(s): G30.0 - Alzheimer's disease with early onset; F02.80 - Dementia in other diseases classified elsewhere without behavioral disturbance (6) Protein-calorie malnutrition, moderate Status: Chronic Assessment and plan: The patient will require supplemental nutrition. He did not do well with swallowing and is not eating very well. His family does want a PEG tube. Current Visit: Yes (7) HTN (hypertension) Status: Chronic Assessment and plan: Patient has a history of hypertension. He is hemodynamically stable. His blood pressure and heart rate are still reasonably stable. Current Visit: Yes Qualifiers: Hypertension type: essential hypertension Qualified Code(s): I10 - Essential (primary) hypertension (8) Hypothyroid Status: Chronic Assessment and plan: Patient will continue thyroid replacement. Current Visit: Yes Qualifiers: Hypothyroidism type: acquired Qualified Code(s): E03.9 - Hypothyroidism, unspecified
[2016-06-16] MEDS: DEXTROSE 5% NACL 0.9% 1,000 ML IV SCH ×2 (08:48→16:27)
[2016-06-16] MEDS: VANCOMYCIN INJ 1,000 MG in SODIUM CHLORIDE 0.9% 250 ML IV SCH (08:49)
[2016-06-16] MEDS: DESITIN 4OZ/NYSTATIN 15 GRAM MIXTURE PASTE TOP SCH ×2 (08:49→23:05)
[2016-06-16] MEDS ORDERED: ERGOCALCIFEROL 50,000 UNIT CAPSULE PO SCH (09:00)
--- NOTE | 2016-06-16 15:41 | Physician Query Form ---
CLICK EDIT DOCUMENT TO SELECT QUERY ANSWER --> OK --> SIGN PROVIDERS: Make your selection(s) from the choices in EACH section by typing an "x" and enter comments in the comment section. Please use your independent medical judgment in providing your response. This request does not imply that any particular answer is desired or expected. CLINICAL INDICATORS: (Providers should not edit this section) Based on documentation from bronchoscopy "The main bronchi are open. There is some thick white mucus and plugs seen bilaterally that were washed and cleared. Washings were sent for culture." Based on the above, could you clarify the location of the mucus plugs. BRONCHIAL: (x) Bilateral Bronchi, all lobes ( ) Left Main Bronchus ( ) Right Main Bronchus ( ) Left Lower Lobe Bronchus ( ) Left Upper Lobe Bronchus ( ) Right Lower Lobe Bronchus ( ) Right Middle Lobe Bronchus ( ) Right Upper Lobe Bronchus ( ) Bronchial Lingula LUNG: ( x) Bilateral Lungs, all lobes ( ) Left Lung ( ) Right Lung ( ) Left Lower Lobe Lung ( ) Left Upper Lobe Lung ( ) Right Lower Lobe Lung ( ) Right Middle Lobe Lung ( ) Right Upper Lobe Lung ( ) Lung Lingula ( ) Other, please specify: ( ) Clinically unable to determine COMMENTS: Use of terms such as suspected, likely, or probable (associated with a specific diagnosis that is being evaluated, monitored, or treated as if it exists) are acceptable and can be restated in the discharge summary if not ruled out. MTDD
--- NOTE | 2016-06-16 20:45 | Gastrointestinal Consult Note ---
Assessment and Plan (1) Dysphagia causing pulmonary aspiration with swallowing Status: Acute Assessment and plan: The patient has been admitted to the hospital since 06/02/16 and has failed several swallowing studies. He appears to be at high risk for future aspiration and so it is suggested that we find an alternate feeding source for this patient. The nurses informed me that they have held his Lovenox today and so we should be able to place the PEG tube tomorrow. Surprisingly the patient' s last sodium and potassium were within normal limits on 06/14/16 at 141 and 3.9. The patient is being considered for placement/potential discharge with home health and so feeding tube will be required going forward for ongoing nutrition , medication and hydration needs. I did discuss with the patient's daughter the risks and benefits of this procedure which include but are not limited to: Bleeding, infection, perforation, cardiac and pulmonary compromise as well as potential peritonitis. Current Visit: Yes (2) Protein-calorie malnutrition, moderate Status: Chronic Assessment and plan: Patient's total protein and albumin were 5.7 and 2.8 back on admission. I suspect these are somewhat better now. We will likely check pre-albumin level in the near future. Proceed with PEG tube placement tomorrow this patient will need an abdominal binder to protect the PEG tube from accidental removal. Replacement of PEG tube would be a priority if the patient's PEG tube was removed before mature fistulous tract developed in the stomach. Current Visit: Yes (3) Anemia Status: Acute Assessment and plan: This patient's anemia is actually fairly low-grade with a drop in the hematocrit over this hospitalization between 43.7 and 35.3% we will evaluate the patient during upper endoscopy for potential bleeding sources which include ulcers and gastritis/esophagitis and duodenitis. Further recommendations post evaluation. Current Visit: Yes History of Present Illness Chief complaint: PEG tube placement secondary to aspiration/failed swallowing study History of present illness: Mr. Oconnell is a 81 year old male Who has been here since 06/02/16 with a right lower lobe pneumonia with H influenza and MRSA, COPD and recurrent issues with aspiration who has failed a bedside swallowing study once again and is felt to need PEG tube placement until his cognitive function can return to the point where he is able to swallow effectively. Patient has had evaluation by Amanuel Martínez including bronchoscopy in the ICU on the ventilator on with mucus plugging and retained secretions. Despite this he has had recurrent respiratory difficulties and need to go back on the BiPAP from time to time. He has difficulty communicating and appears to be fairly well demented. I discussed the case with his daughter who is on board for proceeding with PEG tube placement. The patient cannot provide any additional history. He appears to be somewhat contracted but appears to be able to move all extremities to some degree. Home Medications Medication Instructions Recorded Confirmed Type Allopurinol 300 mg PO DAILY 06/02/16 06/02/16 History Cholecalciferol (Vitamin D3) 50,000 unit PO Q7DAY 06/02/16 06/02/16 History [Vitamin D3] Clorazepate [Tranxene] 3.75 mg PO BID 06/02/16 06/02/16 History Donepezil [Aricept] 10 mg PO BEDTIME 06/02/16 06/02/16 History Folic Acid Tab 1 mg PO DAILY 06/02/16 06/02/16 History Levothyroxine Tab [Synthroid Tab] 75 mcg PO DAILY@0700 06/02/16 06/02/16 History Memantine HCl 10 mg PO BID 06/02/16 06/02/16 History Omeprazole 40 mg PO DAILY 06/02/16 06/02/16 History Quetiapine Fumarate 100 mg PO DAILY 06/02/16 06/02/16 History Venlafaxine HCl [Venlafaxine XR] 75 mg PO BID W/MEALS 06/02/16 06/02/16 History Zolpidem Tartrate 5 mg PO BEDTIME 06/02/16 06/02/16 History amLODIPine [Norvasc] 5 mg PO DAILY 06/02/16 06/02/16 History hydroCHLOROthiazide 25 mg PO DAILY 06/02/16 06/02/16 History [Hydrochlorothiazide] Allergies Allergy/AdvReac Type Severity Reaction Status Date / Time No Known Allergies Allergy Unverified 06/02/16 03:19 Medical,Surgical,& Family Hx - Medical History Cardio: History of: Hypertension Endocrine: History of: Thyroid Disorder Rheumatology: History of;: Gout Respiratory: History of: COPD (Emphysema), Respiratory Problems - Surgical History HEENT Surgeries: Surgical HX of: Thyroid Surgery - Family History Family History: Reports;: Family Hypertension - Social History Smoking Status: Former smoker Frequency of Alcohol Use: Unknown Type of Drug Use: Unknown ROS unobtainable: due to mental status, due to dementia Exam - Constitutional Vitals: Period Temp Pulse Resp BP Sys/Grimes Pulse Ox Last 24 Hr 96.8 F-98.2 F 52-84 16-26 114-177/68-96 91-99 General appearance: mild distress Exam: Constitutional: Well-developed, well-nourished, alert, and in no acute distress Head and face: Head: Normocephalic atraumatic--some temporal wasting. Eyes: Conjunctiva without injection, no gross scleral icterus, pupils equal and round bilaterally Ears: Intact to conversation in both ears Nose: External appearance is normal, nares patent Mouth: Oral mucous membranes somewhat dry and tacky with mild erythema but overall intact dentition noted to be without erosion, but somewhat carious Neck: Normal appearance, no masses or tenderness, trachea midline Thyroid: Gland midline and appropriate size for age Respiratory: Normal respiratory effort, without wheezes, rales--a few rhonchi are noted in the right base greater than the left base Cardiovascular: Regular rate and rhythm, normal S1, S2, the exam is without rubs, or gallops. Gastrointestinal: Nontender to palpation, slightly scaphoid, normal active bowel sounds, tone normal without rigidity or guarding, no masses present, no hepatomegaly, no spleen tip felt. No rectal exam obtained. Lymphatic: Neck without adenopathy, axilla without lymphadenopathy present Musculoskeletal: Right and left lower extremities without evidence of edema Skin and subcutaneous tissue: No rashes or ulcerations noted, normal skin turgor, digits and nails without clubbing/cyanosis/deformities. Neurologic: Bilateral flexion contractures of the lower extremities, despite this the patient appears to be fairly well muscled, he can respond to questioning with maximum cues from his daughter but mostly stares out blankly and fails to respond to typical questioning Psychiatric: Unable to assess. Results - Labs CBC & BMP: 06/14/16 05:48 06/14/16 05:48
[2016-06-16] MEDS: DONEPEZIL 10 MG TABLET PER TUBE SCH (23:01)
[2016-06-17] MEDS: ALBUTEROL/IPRATROPIUM 3 ML NEB RESP TX SCH ×7 (02:39→23:12)
[2016-06-17] MEDS: DEXTROSE 5% NACL 0.9% 1,000 ML IV SCH ×3 (02:41→18:42)
[2016-06-17] MEDS: VANCOMYCIN INJ 1,000 MG in SODIUM CHLORIDE 0.9% 250 ML IV SCH (02:47)
[2016-06-17] MEDS: AZTREONAM 1,000 MG in SODIUM CHLORIDE 0.9% 100 ML IV SCH (05:40)
[2016-06-17] MEDS: VENLAFAXINE XR 75 MG CAPSULE PO SCH ×2 (07:13→16:56)
[2016-06-17] MEDS: LEVOTHYROXINE 75 MCG TABLET PER TUBE SCH (07:13)
[2016-06-17 07:54] LABS: INR 1.2; PT Patient Result 12.5 SECS
[2016-06-17] MEDS: hydroCHLOROthiazide 25 MG TABLET PO SCH (07:59)
[2016-06-17] MEDS: FOLIC ACID 1 MG TABLET PO SCH (07:59)
[2016-06-17] MEDS: DESITIN 4OZ/NYSTATIN 15 GRAM MIXTURE PASTE TOP SCH ×2 (08:00→21:16)
[2016-06-17] MEDS: PANTOPRAZOLE 40 MG TABLET PO SCH (08:00)
[2016-06-17] MEDS: MEMANTINE 10 MG TABLET PO SCH ×2 (08:00→21:16)
[2016-06-17] MEDS: predniSONE 20 MG TABLET PO SCH (08:00)
[2016-06-17] MEDS: amLODIPine 5 MG TABLET PER TUBE SCH (08:00)
[2016-06-17] MEDS: ALLOPURINOL 300 MG TABLET PER TUBE SCH (08:00)
[2016-06-17] MEDS ORDERED: LIDOCAINE 2% 5 ML VIAL ONE (08:30)
[2016-06-17] MEDS ORDERED: PROPOFOL 200 MG/20 ML VIAL IV ONE (08:30)
--- NOTE | 2016-06-17 08:56 | Operative Note ---
Date of procedure: 06/17/16 Pre-op diagnosis: Failed swallowing study, aspiration pneumonia, dysphagia Post-op diagnosis: other (Tortuous esophagus noted with multiple rings and an LA class C erosive esophagitis 3 cm distally. Widely patent Schatzki's ring noted with associated esophageal ulcer that crossed into a moderate sized hiatal hernia (probable Tony's ulcer close), patchy gastritis, successful PEG tube placement for dysphagia) Procedure: PROCEDURE: Esophagogastroduodenoscopy (EGD) with percutaneous endoscopic gastrostomy (PEG) tube placement with cold biopsy for pathology REFERRING PHYSICIAN: Eduin Oh MD INDICATIONS: Dysphagia, poor p.o. intake with mild malnutrition, failed swallowing study ENDOSCOPIST: Hiren Fields MD ENDOSCOPE: Olympus Video 100 System upper endoscope ASA CLASS: 4 EXAM: CV: Regular rate and rhythm respiratory: Clear to ascultation abdominal: Positive bowel sounds MEDICATION: As per Anesthesia nursing protocol, see their notes PROCEDURE: After discussion of the potential risks and benefits of upper endoscopy and PEG placement, the informed consent was obtained. The patient was then placed in the left lateral decubitus position where sedation was achieved as noted above. Esophageal intubation was performed without difficulty , and the endoscope was advanced through the esophagus, stomach and duodenum. A slow withdrawal was then performed with retroflexion in the stomach for careful inspection of the incisura angularis, fundus and cardia. The scope was then returned to a neutral position and withdrawn through the esophagus. The patient tolerated the procedure well and without complication. BIOPSIES: Gastric antrum/body PHOTOGRAPHS: Obtained FINDINGS: Hypopharynx and Larynx: Normal Esohagoscopy Upper and middle thirds: Tortuous with multiple rings Lower third LA class C erosive esophagitis 3 cm Esophogastric junctions: LA class C erosive esophagitis 3 cm with esophageal stricture, widely patent, esophageal ulcer noted here lapsing into the hiatal hernia--likely Tony's ulcer Gastroscopy: Cardia/Fundus: 4 cm hiatal hernia with some blood noted from the Tony's ulcer above Body: Mild diffuse patchy gastritis, biopsied Antrum and pylorus mild diffuse Patchy gastritis, biopsied Duodenoscopy: Bulb Normal Second and third portions: Normal PEG Kit/tube size: [employer] 20 [place] PEG tube PEG Placement: After insufflation of the stomach with the prior procedure proper positioning was determined through transillumination and direct pressure with one to one transmission through the abdominal wall. The abdomen was sterilely prepped and draped, injected with 1% lidocaine and a 1 cm incision was cut in the external skin to accommodate the PEG tube. Using standard Ponsky "pull" technique, a catheter was inserted into the stomach (using a fluid filled syringe with back-suction to examine for interposed hollow organs) and a string was advanced into the stomach. This was snared through the scope, pulled through the mouth and tied to the PEG tube. The feeding tube was then pulled down into the stomach and out the abdominal wall, and a hub appropriately placed at the base to provide traction between internal hub and external skin. The tube was trimmed, dressed and a second look with the endoscope used to confirm position and function of the tube. The procedure was tolerated well and without complication. IMPRESSION: Tortuous esophagus noted with multiple rings and an LA class C erosive esophagitis 3 cm distally. Widely patent Schatzki's ring noted with associated esophageal ulcer that crossed into a moderate sized hiatal hernia ( probable Tony's ulcer close), patchy gastritis, successful PEG tube placement for dysphagia RECOMMENDATIONS: Maintain head of bed at 30 degrees Flush the PEG tube with 30 cc of water or saline every 4 hours Obtain (if not done already) nutritional consult to determine optimal feeding rate, continuous vs. bolus, and any hydration requirements necessary. Meds may be crushed and flushed through PEG in 12 hours, followed by 10 ml of water, as per the patient's attending physcian. Feeding though the tube may start at 12 hours with an initial rate of 30 ml/ hour advancing by 10 ml's every four hours until goal rate achieved. Hold tube feeds for residuals greater than 100 ml, checked each shift. Abdominal binder to protect PEG tube at all times. Hiren Fields MD Copy to: Dr. Eduin Oh MD, Dr. Amanuel Martínez MD Anesthesia: MAC Surgeon / Physician: Hiren Fields Estimated blood loss: minimal Specimens: other (Gastric antrum/body) Condition: stable Disposition: post procedure unit ([facility]I. Suite) Results - Labs CBC & BMP: 06/14/16 05:48 06/14/16 05:48 Discharge Plan - Discharge Medications No Action Cholecalciferol (Vitamin D3) [Vitamin D3] 50,000 unit PO Q7DAY Zolpidem Tartrate 5 mg PO BEDTIME Clorazepate [Tranxene] 3.75 mg PO BID hydroCHLOROthiazide [Hydrochlorothiazide] 25 mg PO DAILY Folic Acid Tab 1 mg PO DAILY Donepezil [Aricept] 10 mg PO BEDTIME Levothyroxine Tab [Synthroid Tab] 75 mcg PO DAILY@0700 Venlafaxine HCl [Venlafaxine XR] 75 mg PO BID W/MEALS Quetiapine Fumarate 100 mg PO DAILY Omeprazole 40 mg PO DAILY amLODIPine [Norvasc] 5 mg PO DAILY Memantine HCl 10 mg PO BID Allopurinol 300 mg PO DAILY - Follow Up or Referral - Forms/Instructions
--- NOTE | 2016-06-17 09:00 | Gastrointestinal Progress Note ---
Assessment and Plan (1) Dysphagia causing pulmonary aspiration with swallowing Status: Acute Assessment and plan: The patient has been admitted to the hospital since 06/02/16 and has failed several swallowing studies. He appears to be at high risk for future aspiration and so it is suggested that we find an alternate feeding source for this patient. The nurses informed me that they have held his Lovenox today and so we should be able to place the PEG tube tomorrow. Surprisingly the patient' s last sodium and potassium were within normal limits on 06/14/16 at 141 and 3.9. The patient is being considered for placement/potential discharge with home health and so feeding tube will be required going forward for ongoing nutrition , medication and hydration needs. I did discuss with the patient's daughter the risks and benefits of this procedure which include but are not limited to: Bleeding, infection, perforation, cardiac and pulmonary compromise as well as potential peritonitis. 06/17/16--PEG tube placed this morning other findings of endoscopy include: Tortuous esophagus noted with multiple rings and an LA class C erosive esophagitis 3 cm distally. Widely patent Schatzki's ring noted with associated esophageal ulcer that crossed into a moderate sized hiatal hernia ( probable Tony's ulcer), patchy gastritis, successful PEG tube placement for dysphagia Current Visit: Yes (2) Protein-calorie malnutrition, moderate Status: Chronic Assessment and plan: Patient's total protein and albumin were 5.7 and 2.8 back on admission. I suspect these are somewhat better now. We will likely check pre-albumin level in the near future. Proceed with PEG tube placement tomorrow this patient will need an abdominal binder to protect the PEG tube from accidental removal. Replacement of PEG tube would be a priority if the patient's PEG tube was removed before mature fistulous tract developed in the stomach. 06/17/16--I suspect this patient will improve with appropriate nutrition via the PEG tube. Current Visit: Yes (3) Anemia Status: Acute Assessment and plan: This patient's anemia is actually fairly low-grade with a drop in the hematocrit over this hospitalization between 43.7 and 35.3% we will evaluate the patient during upper endoscopy for potential bleeding sources which include ulcers and gastritis/esophagitis and duodenitis. Further recommendations post evaluation. 06/17/16--this patient has erosive esophagitis and the Tony's ulcer as well as mild patchy gastritis. These should all respond to acid blockade and appropriate nutrition. The Tony's ulcer may also be secondary to previous compression/NG tube trauma, as this is the same area as a Schatzki's ring. Current Visit: Yes Gastroenterology - PN: Subj Interval history: No new complaints this morning. Exam (Progress Note) - Constitutional Vitals: Period Temp Pulse Resp BP Sys/Grimes Pulse Ox Last 24 Hr 97.6 F-98.8 F 63-98 16-26 138-163/68-73 91-100 General appearance: mild distress - Head Head exam: Present: normocephalic - Eye Eye exam: Present: EOMI Pupils: Present: JOZEF - Respiratory Respiratory exam: Present: clear to auscultation bilaterally. Absent: rhonchi, stridor, wheezes - Cardiovascular Cardiovascular exam: Present: regular rate and rhythm - GI/Abdominal GI/Abdominal exam: Present: normal bowel sounds, soft. Absent: distended, tenderness, rebound - Neurological Exam Neurological exam: Present: alert, oriented X3 - Psychiatric Psychiatric exam: Present: normal affect, normal mood - Skin Skin exam: Present: warm Results - Labs CBC & BMP: 06/14/16 05:48 06/14/16 05:48
--- NOTE | 2016-06-17 09:02 | Anesthesia Post-Op ---
Anesthesia Post OP - Post Ansesthetic Evaluation Patient seen in post op: Yes Resp: within normal limits CV: within normal limits Mental: within normal limits Temp: within normal limits [id number]: within normal limits Nausea and Vomiting: within normal limits Pain: within normal limits
--- NOTE | 2016-06-17 13:41 | Hospitalist Progress Note ---
Assessment and Plan (1) Right lower lobe pneumonia Status: Acute Assessment and plan: Impression: 1. Right lower lobe pneumonia, Haemophilus influenza and/or MRSA 2. COPD 3. Dementia 4. Deconditioning 5. Possible aspiration. Plan: PEG tube is been inserted. He is received 10 days of IV antibiotics, so we will discontinue these today. Await discharge plan. This note was completed using [email or web address] voice recognition software. There may be oncology radiation physician errors as a result. Current Visit: Yes Qualifiers: Pneumonia type: due to Haemophilus influenzae Qualified Code(s): J14 - Pneumonia due to Hemophilus influenzae Hospitalist: Subjective Interval history: Follow-up right lower lobe pneumonia, deconditioning, COPD, possible aspiration , and dementia. The patient has undergone PEG tube placement this morning. He is trying to get out of bed. Family is interested in pursuing swing bed as a discharge option. Physical therapy and social service have already been consulted in that regard. With regard to feedings, I think he would do better on bolus feedings rather than continuous feedings. Exam - Constitutional Vitals: Period Temp Pulse Resp BP Sys/Grimes Pulse Ox Last 24 Hr 98.1 F-98.8 F 60-98 16-33 112-163/57-73 2-100 Vital signs are noted above. Heart is regular with distant tones. He has a few rhonchi in the chest. Abdomen is soft. PEG tube is in place. He is awake and conversant. He remains confused. I suspect that this is his baseline. Results - Labs CBC & BMP: 06/14/16 05:48 06/14/16 05:48
--- NOTE | 2016-06-17 14:19 | Pulmonology Progress Note ---
Pulmonary - PN: Subj Interval history: Patient is an 81-year-old white man that has a history of COPD and came in with respiratory distress and pneumonia. He was intubated and transferred here. He has been reasonably stable on the ventilator. He does have bibasilar infiltrates worse on the right. He has grown out Haemophilus influenza is getting antibiotics. Over the weekend he did well on CPAP and was extubated . He has continued to struggle off and on at times. However he does seem to be breathing a little better now. Today he did get his PEG tube okay. He is more alert now and wants to sit up some. He is able to cough up some secretions. His breathing is definitely better now. Exam (Progress Note) - Constitutional Vitals: Period Temp Pulse Resp BP Sys/Grimes Pulse Ox Last 24 Hr 98.1 F-98.8 F 60-98 18-33 112-163/57-73 2-100 Exam: General appearance: no acute distress (Patient is chronically ill-appearing. He is awake and comfortable on low-flow oxygen now. ) - Head Head exam: Present: normal inspection, normocephalic - Eye Eye exam: Present: EOMI, other (He has bilateral arcus). Absent: scleral icterus Pupils: Present: JOZEF - ENT ENT exam: Present: normal exam, he has low flow oxygen in place now. - Neck Neck exam: Absent: tenderness, thyromegaly - Respiratory Respiratory exam: Present: He has diminished breath sounds with prolonged expiration. He has a barrel shaped chest with distant breath sounds but no wheezing now. - Cardiovascular Cardiovascular exam: Present: regular rate and rhythm, no murmur or gallop. - GI/Abdominal GI/Abdominal exam: Present: Normal bowel sounds, soft. Absent: organomegaly, tenderness - Extremities Exam Extremities exam: Absent: calf tenderness, edema, his extremities are quite emaciated. - Neurological Exam Neurological exam: Present: He does move his extremities okay. He is much more alert today. - Skin Skin exam: Present: warm, dry Results - Labs CBC & BMP: 06/14/16 05:48 06/14/16 05:48 Assessment and Plan (1) Respiratory failure Status: Acute Assessment and plan: Patient has had CO2 retention and was intubated on the ventilator . He has done okay off the ventilator now. His breathing is much better today. Current Visit: Yes Qualifiers: Chronicity: acute on chronic Respiratory failure complication: hypoxia Qualified Code(s): J96.21 - Acute and chronic respiratory failure with hypoxia (2) Right lower lobe pneumonia Status: Acute Assessment and plan: The patient has right lower lobe consolidation and is on IV antibiotics. He has grown Haemophilus influenza out on culture and is getting his antibiotics. He also had MRSA growing out of washings. His chest x-ray is much improved now. He is continuing with respiratory therapy and antibiotics. Overall he is much more stable. Current Visit: Yes Qualifiers: Pneumonia type: due to Haemophilus influenzae Qualified Code(s): J14 - Pneumonia due to Hemophilus influenzae (3) SAIMA (acute kidney injury) Status: Resolved Assessment and plan: His creatinine has improved and is down to 0.7 today. Current Visit: No (4) COPD (chronic obstructive pulmonary disease) Status: Chronic Assessment and plan: Patient looks like he has severe COPD. We will continue with steroids and respiratory therapy. He still requires some suctioning. He is quite emaciated and does not look like he can do much activity at all. He is more alert now and does look more comfortable. Current Visit: Yes (5) Dementia Status: Chronic Assessment and plan: Patient has a history of dementia. He tries to talk a little bit but is hard to understand. He is talking a little better now. Current Visit: Yes Qualifiers: Dementia type: Alzheimer's disease Alzheimer's disease onset: early-onset Dementia behavioral disturbance: without behavioral disturbance Qualified Code(s): G30.0 - Alzheimer's disease with early onset; F02.80 - Dementia in other diseases classified elsewhere without behavioral disturbance (6) Protein-calorie malnutrition, moderate Status: Chronic Assessment and plan: The patient will require supplemental nutrition. He did not do well with swallowing and is not eating very well. He did get his PEG tube today. Current Visit: Yes (7) HTN (hypertension) Status: Chronic Assessment and plan: Patient has a history of hypertension. He is hemodynamically stable. His blood pressure and heart rate are still reasonably stable. Current Visit: Yes Qualifiers: Hypertension type: essential hypertension Qualified Code(s): I10 - Essential (primary) hypertension (8) Hypothyroid Status: Chronic Assessment and plan: Patient will continue thyroid replacement. Current Visit: Yes Qualifiers: Hypothyroidism type: acquired Qualified Code(s): E03.9 - Hypothyroidism, unspecified
[2016-06-17] MEDS: DONEPEZIL 10 MG TABLET PER TUBE SCH (21:16)
[2016-06-18] MEDS: ALBUTEROL/IPRATROPIUM 3 ML NEB RESP TX SCH ×5 (03:19→19:09)
[2016-06-18] MEDS: DEXTROSE 5% NACL 0.9% 1,000 ML IV SCH ×3 (05:19→22:22)
[2016-06-18] MEDS: LEVOTHYROXINE 75 MCG TABLET PER TUBE SCH (06:47)
[2016-06-18 06:54] LABS: Calcium 6.9 MG/DL (8.5-10.1); Magnesium 1.6 MG/DL (1.8-2.4); Osmolality,Calculated 276.4 MOS/KG (273-304); Phosphorous 1.7 MG/DL (2.5-4.9); Potassium 2.7 MMOL/L (3.5-5.1); Prealbumin 11.3 MG/DL (20-40)
[2016-06-18] MEDS: VENLAFAXINE XR 75 MG CAPSULE PO SCH (08:00)
[2016-06-18] MEDS: PANTOPRAZOLE 40 MG TABLET PO SCH (09:00)
--- NOTE | 2016-06-18 09:44 | Hospitalist Progress Note ---
Assessment and Plan (1) Right lower lobe pneumonia Status: Acute Assessment and plan: Impression: 1. Right lower lobe pneumonia, Haemophilus influenza and/or MRSA, resolved 2. COPD 3. Dementia 4. Deconditioning 5. Possible aspiration. Plan: Continue tube feedings. We are waiting to hear from the long-term regarding placement. This note was completed using [employer] voice recognition software. There may be sewing room supervisor errors as a result. Current Visit: Yes Qualifiers: Pneumonia type: due to Haemophilus influenzae Qualified Code(s): J14 - Pneumonia due to Hemophilus influenzae Hospitalist: Subjective Interval history: Follow-up right lower lobe pneumonia, possible aspiration, deconditioning, and COPD. The patient tolerated some tube feedings yesterday. He is off restraints, and we are looking into long-term placement for swing bed placement. He had been ambulatory at home, and we would like to try to get him back to his prehospital status before letting him go home. Exam - Constitutional Vitals: Period Temp Pulse Resp BP Sys/Grimes Pulse Ox Last 24 Hr 98.1 F-99.1 F 60-89 17-28 125-163/58-69 2-100 Vital signs are noted above. Heart is regular with very distant tones and no murmur. He has a few rhonchi in the chest. He is awake and conversant, but obviously confused. Results - Labs CBC & BMP: 06/14/16 05:48 06/18/16 05:44 Lab Results: I have reviewed the past 24 hour labs
[2016-06-18] MEDS: DESITIN 4OZ/NYSTATIN 15 GRAM MIXTURE PASTE TOP SCH ×2 (10:00→22:27)
--- NOTE | 2016-06-18 10:23 | Pathology Report from [facility] ---
ACCESSION # : [id number] PATIENT NAME : Mariposa Oconnell ORDERING DR : Hiren Fields MD CLINICAL HX: Anemia POST-OP DX: Same SPECIMEN INFO: STEVEN GROSS DESCRIPTION: Received in formalin labeled "MARIPOSA OCONNELL" is a 0.6 x 0.4 cm aggregate of romeo tissue submitted in one cassette. DIAGNOSIS FOR MARIPOSA OCONNELL: GASTRIC BIOPSIES: Chronic antral gastritis. H. pylori not seen on special stain. SERVICE DATE: 06/17/2016 REPORT DATE: 06/18/2016 PATHOLOGIST: Ric Arita M.D. [facility] CENTERWilfrido
[2016-06-18] MEDS: ALLOPURINOL 300 MG TABLET PER TUBE SCH (11:30)
[2016-06-18] MEDS: hydroCHLOROthiazide 25 MG TABLET PO SCH (11:30)
[2016-06-18] MEDS: amLODIPine 5 MG TABLET PER TUBE SCH (11:30)
[2016-06-18] MEDS: predniSONE 20 MG TABLET PO SCH (11:30)
[2016-06-18] MEDS: FOLIC ACID 1 MG TABLET PO SCH (11:30)
[2016-06-18] MEDS: MEMANTINE 10 MG TABLET PO SCH ×2 (11:30→22:26)
[2016-06-18] MEDS ORDERED: MAGNESIUM SULF RIDER 2 GM in PREMIX 1 EACH IV ONE (11:34)
[2016-06-18] MEDS: POTASSIUM CHLORIDE RIDER 10 MEQ in PREMIX 1 EACH IV PRN ×5 (11:48→19:10)
--- NOTE | 2016-06-18 12:58 | Pulmonology Progress Note ---
Pulmonary - PN: Subj Interval history: Patient is an 81-year-old white man that has a history of COPD and came in with respiratory distress and pneumonia. He was intubated and transferred here. He has been reasonably stable on the ventilator. He does have bibasilar infiltrates worse on the right. He has grown out Haemophilus influenza is getting antibiotics. Over the weekend he did well on CPAP and was extubated . He has continued to struggle off and on at times. However he does seem to be breathing a little better now. He does use CPAP some at night. He got his PEG tube yesterday okay. He is resting comfortably now. His breathing overall is a little better. He can probably go to a swing bed soon. Exam (Progress Note) - Constitutional Vitals: Period Temp Pulse Resp BP Sys/Grimes Pulse Ox Last 24 Hr 98.4 F-99.1 F 66-89 17-28 125-163/63-69 92-99 Exam: General appearance: no acute distress (Patient is chronically ill-appearing. He is awake and comfortable on low-flow oxygen now. ) - Head Head exam: Present: normal inspection, normocephalic - Eye Eye exam: Present: EOMI, other (He has bilateral arcus). Absent: scleral icterus Pupils: Present: JOZEF - ENT ENT exam: Present: normal exam, he has low flow oxygen in place now. - Neck Neck exam: Absent: tenderness, thyromegaly - Respiratory Respiratory exam: Present: He has diminished breath sounds with prolonged expiration. He has a barrel shaped chest with distant breath sounds but no wheezing now. He is still moving air reasonably well. - Cardiovascular Cardiovascular exam: Present: regular rate and rhythm, no murmur or gallop. - GI/Abdominal GI/Abdominal exam: Present: Normal bowel sounds, soft. Absent: organomegaly, tenderness - Extremities Exam Extremities exam: Absent: calf tenderness, edema, his extremities are quite emaciated. - Neurological Exam Neurological exam: Present: He does move his extremities okay. He is much more alert today. - Skin Skin exam: Present: warm, dry Results - Labs CBC & BMP: 06/14/16 05:48 06/18/16 05:44 Assessment and Plan (1) Respiratory failure Status: Acute Assessment and plan: Patient has had CO2 retention and was intubated on the ventilator . He has done okay off the ventilator now. His breathing is much better today. He does have fairly significant COPD. Current Visit: Yes Qualifiers: Chronicity: acute on chronic Respiratory failure complication: hypoxia Qualified Code(s): J96.21 - Acute and chronic respiratory failure with hypoxia (2) Right lower lobe pneumonia Status: Acute Assessment and plan: The patient has right lower lobe consolidation and is on IV antibiotics. He has grown Haemophilus influenza out on culture and is getting his antibiotics. He also had MRSA growing out of washings. His chest x-ray is much improved now. He is continuing with respiratory therapy and antibiotics. He will continue to use bronchodilator therapy and oxygen. He may need CPAP at home also. Current Visit: Yes Qualifiers: Pneumonia type: due to Haemophilus influenzae Qualified Code(s): J14 - Pneumonia due to Hemophilus influenzae (3) COPD (chronic obstructive pulmonary disease) Status: Chronic Assessment and plan: Patient looks like he has severe COPD. We will continue with steroids and respiratory therapy. He still requires some suctioning. He is quite emaciated and does not look like he can do much activity at all. He does get short of breath easily and will still require oxygen. Current Visit: Yes (4) Dementia Status: Chronic Assessment and plan: Patient has a history of dementia. He tries to talk a little bit but is hard to understand. He is talking a little better now. Current Visit: Yes Qualifiers: Dementia type: Alzheimer's disease Alzheimer's disease onset: early-onset Dementia behavioral disturbance: without behavioral disturbance Qualified Code(s): G30.0 - Alzheimer's disease with early onset; F02.80 - Dementia in other diseases classified elsewhere without behavioral disturbance (5) Protein-calorie malnutrition, moderate Status: Chronic Assessment and plan: The patient will require supplemental nutrition. He did not do well with swallowing and is not eating very well. He has a PEG tube now and is getting tube feedings. Current Visit: Yes (6) HTN (hypertension) Status: Chronic Assessment and plan: Patient has a history of hypertension. He is hemodynamically stable. His blood pressure and heart rate are still reasonably stable. Current Visit: Yes Qualifiers: Hypertension type: essential hypertension Qualified Code(s): I10 - Essential (primary) hypertension (7) Hypothyroid Status: Chronic Assessment and plan: Patient will continue thyroid replacement. Current Visit: Yes Qualifiers: Hypothyroidism type: acquired Qualified Code(s): E03.9 - Hypothyroidism, unspecified
[2016-06-18] MEDS: POTASSIUM PHOS/SOD PHOS POWDER 250 MG PACK PO SCH ×2 (14:38→22:25)
--- NOTE | 2016-06-18 18:12 | Gastrointestinal Progress Note ---
Assessment and Plan (1) Dysphagia causing pulmonary aspiration with swallowing Status: Acute Assessment and plan: The patient has been admitted to the hospital since 06/02/16 and has failed several swallowing studies. He appears to be at high risk for future aspiration and so it is suggested that we find an alternate feeding source for this patient. The nurses informed me that they have held his Lovenox today and so we should be able to place the PEG tube tomorrow. Surprisingly the patient' s last sodium and potassium were within normal limits on 06/14/16 at 141 and 3.9. The patient is being considered for placement/potential discharge with home health and so feeding tube will be required going forward for ongoing nutrition , medication and hydration needs. I did discuss with the patient's daughter the risks and benefits of this procedure which include but are not limited to: Bleeding, infection, perforation, cardiac and pulmonary compromise as well as potential peritonitis. 06/17/16--PEG tube placed this morning other findings of endoscopy include: Tortuous esophagus noted with multiple rings and an LA class C erosive esophagitis 3 cm distally. 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 Some mild patchy gastritis and uneventful PEG tube placement. He is tolerating the feeds well. At this point I am signing off of his case please alert me if I am needed for further questions/issues. Current Visit: Yes (2) Protein-calorie malnutrition, moderate Status: Chronic Assessment and plan: Patient's total protein and albumin were 5.7 and 2.8 back on admission. I suspect these are somewhat better now. We will likely check pre-albumin level in the near future. Proceed with PEG tube placement tomorrow this patient will need an abdominal binder to protect the PEG tube from accidental removal. Replacement of PEG tube would be a priority if the patient's PEG tube was removed before mature fistulous tract developed in the stomach. 06/17/16--I suspect this patient will improve with appropriate nutrition via the PEG tube. 06/18/16--I suspect this patient may be experiencing some refeeding syndrome, will keep a careful eye on the magnesium and potassium as he is starting to be fed again. Current Visit: Yes (3) Anemia Status: Acute Assessment and plan: This patient's anemia is actually fairly low-grade with a drop in the hematocrit over this hospitalization between 43.7 and 35.3% we will evaluate the patient during upper endoscopy for potential bleeding sources which include ulcers and gastritis/esophagitis and duodenitis. Further recommendations post evaluation. 06/17/16--this patient has erosive esophagitis and the Tony's ulcer as well as mild patchy gastritis. These should all respond to acid blockade and appropriate nutrition. The Tony's ulcer may also be secondary to previous compression/NG tube trauma, as this is the same area as a Schatzki's ring. 06/18/16--Continue proton pump inhibition at least once a day. Current Visit: Yes Gastroenterology - PN: Subj Interval history: Tolerating the tube feeds with essentially no residual despite being on bolus feedings. Abdominal binder is in place. Family's questions were answered. Exam (Progress Note) - Constitutional Vitals: Period Temp Pulse Resp BP Sys/Grimes Pulse Ox Last 24 Hr 98.4 F-998.3 F 66-86 15-28 125-146/63-73 94-99 General appearance: no acute distress - Head Head exam: Present: normocephalic - Eye Eye exam: Present: EOMI Pupils: Present: JOZEF - Respiratory Respiratory exam: Present: decreased breath sounds (In the bases), rhonchi ( Midlung jones). Absent: stridor, wheezes - Cardiovascular Cardiovascular exam: Present: regular rate and rhythm - GI/Abdominal GI/Abdominal exam: Present: normal bowel sounds, soft, other (No erythema around PEG tube site, dispense well.). Absent: distended, tenderness, rebound - Extremities Exam Extremities exam: Present: other (Muscular wasting noted, flexion contractures of the lower extremities) - Neurological Exam Neurological exam: Present: alert, altered (Demented) - Psychiatric Psychiatric exam: Present: flat affect - Skin Skin exam: Present: warm Results - Labs CBC & BMP: 06/14/16 05:48 06/18/16 05:44
[2016-06-18] MEDS: VENLAFAXINE 75 MG TABLET PO SCH (22:25)
[2016-06-18] MEDS: DONEPEZIL 10 MG TABLET PER TUBE SCH (22:26)
[2016-06-19] MEDS: ALBUTEROL/IPRATROPIUM 3 ML NEB RESP TX SCH ×7 (00:30→23:00)
[2016-06-19] MEDS: LEVOTHYROXINE 75 MCG TABLET PER TUBE SCH (07:37)
--- NOTE | 2016-06-19 08:27 | Pulmonology Progress Note ---
Pulmonary - PN: Subj Interval history: Patient is an 81-year-old white man that has a history of COPD and came in with respiratory distress and pneumonia. He is very debilitated but is doing better now. He got his PEG tube and is getting feedings. He apparently rested fairly well last night. He still gets a little short of breath but is trying to do a little more activity. He is coughing up some secretions. Overall he is stable. Exam (Progress Note) - Constitutional Vitals: Period Temp Pulse Resp BP Sys/Grimes Pulse Ox Last 24 Hr 97.8 F-98.7 F 71-90 15-22 111-150/56-77 22-100 Exam: General appearance: no acute distress (Patient is chronically ill-appearing. He is responding a little better and seems comfortable.) - Head Head exam: Present: normal inspection, normocephalic - Eye Eye exam: Present: EOMI, other (He has bilateral arcus). Absent: scleral icterus Pupils: Present: JOZEF - ENT ENT exam: Present: normal exam, he has low flow oxygen in place now. - Neck Neck exam: Absent: tenderness, thyromegaly - Respiratory Respiratory exam: Present: He has diminished breath sounds with prolonged expiration. He has a barrel shaped chest with distant breath sounds. He still has minimal rhonchi. - Cardiovascular Cardiovascular exam: Present: regular rate and rhythm, no murmur or gallop. - GI/Abdominal GI/Abdominal exam: Present: Normal bowel sounds, soft. He has a PEG tube in place now. absent: organomegaly, tenderness - Extremities Exam Extremities exam: Absent: calf tenderness, edema, his extremities are quite emaciated. - Neurological Exam Neurological exam: Present: He does move his extremities okay. He is much more alert today. - Skin Skin exam: Present: warm, dry Results - Labs CBC & BMP: 06/14/16 05:48 06/18/16 22:29 Assessment and Plan (1) Respiratory failure Status: Acute Assessment and plan: Patient has had CO2 retention and was intubated on the ventilator . He has done okay off the ventilator now. His breathing has been better the last few days. Current Visit: Yes Qualifiers: Chronicity: acute on chronic Respiratory failure complication: hypoxia Qualified Code(s): J96.21 - Acute and chronic respiratory failure with hypoxia (2) Right lower lobe pneumonia Status: Acute Assessment and plan: The patient has right lower lobe consolidation and is on IV antibiotics. He has grown Haemophilus influenza out on culture and is getting his antibiotics. He also had MRSA growing out of washings. His chest x-ray is much improved now. He is continuing with respiratory therapy and antibiotics. He will continue to use bronchodilator therapy and oxygen. He may need CPAP at home also. Overall he is reasonably stable. Current Visit: Yes Qualifiers: Pneumonia type: due to Haemophilus influenzae Qualified Code(s): J14 - Pneumonia due to Hemophilus influenzae (3) COPD (chronic obstructive pulmonary disease) Status: Chronic Assessment and plan: Patient looks like he has severe COPD. We will continue with steroids and respiratory therapy. He still requires some suctioning. He has been able to move around a little more and coughing better. Overall he is fairly stable. He will go to a swing bed next week. Current Visit: Yes (4) Dementia Status: Chronic Assessment and plan: Patient has a history of dementia. He tries to talk a little bit but is hard to understand. He is talking a little better now. Current Visit: Yes Qualifiers: Dementia type: Alzheimer's disease Alzheimer's disease onset: early-onset Dementia behavioral disturbance: without behavioral disturbance Qualified Code(s): G30.0 - Alzheimer's disease with early onset; F02.80 - Dementia in other diseases classified elsewhere without behavioral disturbance (5) Protein-calorie malnutrition, moderate Status: Chronic Assessment and plan: The patient will require supplemental nutrition. He is getting his PEG tube feedings now. Current Visit: Yes (6) HTN (hypertension) Status: Chronic Assessment and plan: Patient has a history of hypertension. He is hemodynamically stable. His blood pressure and heart rate are still reasonably stable. Current Visit: Yes Qualifiers: Hypertension type: essential hypertension Qualified Code(s): I10 - Essential (primary) hypertension (7) Hypothyroid Status: Chronic Assessment and plan: Patient will continue thyroid replacement. Current Visit: Yes Qualifiers: Hypothyroidism type: acquired Qualified Code(s): E03.9 - Hypothyroidism, unspecified
[2016-06-19] MEDS: DEXTROSE 5% NACL 0.9% 1,000 ML IV SCH (08:45)
--- NOTE | 2016-06-19 09:08 | Hospitalist Progress Note ---
Assessment and Plan (1) Right lower lobe pneumonia Status: Acute Assessment and plan: Impression: 1. Right lower lobe pneumonia, Haemophilus influenza and/or MRSA, resolved 2. COPD, baseline 3. Dementia 4. Deconditioning, improving with physical therapy 5. Possible aspiration. Plan: Continue tube feedings and physical therapy. Discontinue IV fluids. We are waiting to hear from the correction regarding placement. He is ready for transfer. This note was completed using [employer] voice recognition software. There may be staff software engineer errors as a result. Current Visit: Yes Qualifiers: Pneumonia type: due to Haemophilus influenzae Qualified Code(s): J14 - Pneumonia due to Hemophilus influenzae Hospitalist: Subjective Interval history: Follow-up pneumonia, probable aspiration, dementia, and deconditioning. The patient slept fairly well last night. He has not required BiPAP. He is tolerating the tube feedings. He was able to get up and walk to the hallway last night. We will plan on swing bed next week. Exam - Constitutional Vitals: Period Temp Pulse Resp BP Sys/Grimes Pulse Ox Last 24 Hr 97.8 F-98.7 F 71-90 15-28 111-150/56-77 22-100 Vital signs are noted above. Heart is regular with distant tones and no murmur. He has a few rhonchi in the chest. Abdomen is soft and nontender. PEG site is clean. He is awake and conversant, but confused at baseline. Results - Labs CBC & BMP: 06/14/16 05:48 06/18/16 22:29
[2016-06-19] MEDS: MEMANTINE 10 MG TABLET PO SCH ×2 (10:14→20:56)
[2016-06-19] MEDS: POTASSIUM PHOS/SOD PHOS POWDER 250 MG PACK PO SCH ×3 (10:15→20:55)
[2016-06-19] MEDS: hydroCHLOROthiazide 25 MG TABLET PO SCH (10:15)
[2016-06-19] MEDS: predniSONE 10 MG TABLET PO SCH (10:15)
[2016-06-19] MEDS: FOLIC ACID 1 MG TABLET PO SCH (10:15)
[2016-06-19] MEDS: amLODIPine 5 MG TABLET PER TUBE SCH (10:15)
[2016-06-19] MEDS: DESITIN 4OZ/NYSTATIN 15 GRAM MIXTURE PASTE TOP SCH ×2 (10:16→20:53)
[2016-06-19] MEDS: VENLAFAXINE 75 MG TABLET PO SCH ×2 (10:16→20:55)
[2016-06-19] MEDS: LANSOPRAZOLE ODT 30 MG TABLET PO SCH (10:16)
[2016-06-19] MEDS: ALLOPURINOL 300 MG TABLET PER TUBE SCH (10:16)
[2016-06-19] MEDS: THEOPHYLLINE 5.33 MG/ML 30 ML/BOTTLE PO SCH ×2 (17:41→21:00)
[2016-06-19] MEDS: DONEPEZIL 10 MG TABLET PER TUBE SCH (20:55)
[2016-06-20] MEDS: ALBUTEROL/IPRATROPIUM 3 ML NEB RESP TX SCH ×5 (03:00→19:45)
[2016-06-20] MEDS: LEVOTHYROXINE 75 MCG TABLET PER TUBE SCH (07:43)
[2016-06-20] MEDS: THEOPHYLLINE 5.33 MG/ML 30 ML/BOTTLE PO SCH ×3 (07:43→22:26)
--- NOTE | 2016-06-20 08:02 | Pulmonology Progress Note ---
Pulmonary - PN: Subj Interval history: Patient is an 81-year-old white man that has a history of COPD and came in with respiratory distress and pneumonia. He is very debilitated but is doing better now. He got his PEG tube and is getting feedings. He had a fairly good night and did not require BiPAP. He still has some mild cough and congestion. Overall his breathing seems to be a little better. He is very debilitated and is probably going to a swing bed. Exam (Progress Note) - Constitutional Vitals: Period Temp Pulse Resp BP Sys/Grimes Pulse Ox Last 24 Hr 98.2 F-99.4 F 20-92 18-28 118-152/59-77 96-100 Exam: General appearance: no acute distress (Patient is chronically ill-appearing. He is responding a little better and seems comfortable.) - Head Head exam: Present: normal inspection, normocephalic - Eye Eye exam: Present: EOMI, other (He has bilateral arcus). Absent: scleral icterus Pupils: Present: JOZEF - ENT ENT exam: Present: normal exam, he has low flow oxygen in place now. - Neck Neck exam: Absent: tenderness, thyromegaly - Respiratory Respiratory exam: Present: He has diminished breath sounds with prolonged expiration. He has a barrel shaped chest with distant breath sounds. He still has minimal rhonchi. - Cardiovascular Cardiovascular exam: Present: regular rate and rhythm, no murmur or gallop. - GI/Abdominal GI/Abdominal exam: Present: Normal bowel sounds, soft. He has a PEG tube in place now. absent: organomegaly, tenderness - Extremities Exam Extremities exam: Absent: calf tenderness, edema, his extremities are quite emaciated. - Neurological Exam Neurological exam: Present: He does move his extremities okay. He does do a little physical therapy. - Skin Skin exam: Present: warm, dry Results - Labs CBC & BMP: 06/14/16 05:48 06/18/16 22:29 Assessment and Plan (1) Respiratory failure Status: Acute Assessment and plan: Patient has had CO2 retention and was intubated on the ventilator . He is still breathing relatively well off the ventilator but does require BiPAP at times. He is getting vigorous respiratory therapy. Current Visit: Yes Qualifiers: Chronicity: acute on chronic Respiratory failure complication: hypoxia Qualified Code(s): J96.21 - Acute and chronic respiratory failure with hypoxia (2) Right lower lobe pneumonia Status: Acute Assessment and plan: The patient has right lower lobe consolidation and is on IV antibiotics. He has grown Haemophilus influenza out on culture and is getting his antibiotics. His pneumonia is much improved and his breathing is fairly stable. He has completed his course of antibiotics. Overall he is stable. Current Visit: Yes Qualifiers: Pneumonia type: due to Haemophilus influenzae Qualified Code(s): J14 - Pneumonia due to Hemophilus influenzae (3) COPD (chronic obstructive pulmonary disease) Status: Chronic Assessment and plan: Patient looks like he has severe COPD. We will continue with steroids and respiratory therapy. He still requires some suctioning. He has been able to move around a little more and coughing better. Overall he is fairly stable. He will go to a swing bed next week. Current Visit: Yes (4) Dementia Status: Chronic Assessment and plan: Patient has a history of dementia. He tries to talk a little bit but is hard to understand. He is talking a little better now. Current Visit: Yes Qualifiers: Dementia type: Alzheimer's disease Alzheimer's disease onset: early-onset Dementia behavioral disturbance: without behavioral disturbance Qualified Code(s): G30.0 - Alzheimer's disease with early onset; F02.80 - Dementia in other diseases classified elsewhere without behavioral disturbance (5) Protein-calorie malnutrition, moderate Status: Chronic Assessment and plan: The patient will require supplemental nutrition. He is getting his PEG tube feedings now. Current Visit: Yes (6) HTN (hypertension) Status: Chronic Assessment and plan: Patient has a history of hypertension. He is hemodynamically stable. His blood pressure and heart rate are still reasonably stable. Current Visit: Yes Qualifiers: Hypertension type: essential hypertension Qualified Code(s): I10 - Essential (primary) hypertension (7) Hypothyroid Status: Chronic Assessment and plan: Patient will continue thyroid replacement. Current Visit: Yes Qualifiers: Hypothyroidism type: acquired Qualified Code(s): E03.9 - Hypothyroidism, unspecified
--- NOTE | 2016-06-20 09:35 | Hospitalist Progress Note ---
Assessment and Plan (1) Right lower lobe pneumonia Status: Acute Assessment and plan: Impression: 1. Right lower lobe pneumonia, Haemophilus influenza and/or MRSA, resolved 2. COPD, baseline 3. Dementia 4. Deconditioning, improving with physical therapy 5. Possible aspiration, now receiving PEG tube feedings Plan: Continue tube feedings and physical therapy. We are waiting to hear from the [place] [facility] regarding placement. He is ready for transfer. This note was completed using [employer] voice recognition software. There may be director on air errors as a result. Current Visit: Yes Qualifiers: Pneumonia type: due to Haemophilus influenzae Qualified Code(s): J14 - Pneumonia due to Hemophilus influenzae Hospitalist: Subjective Interval history: Follow-up pneumonia with Haemophilus influenza and/or MRSA, deconditioning, malnutrition, and dysphagia. The patient apparently had a good night last night, and did not require BiPAP. He appears comfortable on nasal oxygen now. Family member spent the night with him last night. He continues to tolerate tube feedings fairly well. We are still looking at swing bed and the next day or so. Exam - Constitutional Vitals: Period Temp Pulse Resp BP Sys/Grimes Pulse Ox Last 24 Hr 98 F-99.4 F 20-92 18-24 118-152/59-77 96-100 Vital signs are noted above. Heart is regular with very distant tones. He has a few rhonchi in the chest. Abdomen has positive bowel sounds and is not particularly tender. Results - Labs CBC & BMP: 06/14/16 05:48 06/18/16 22:29
[2016-06-20] MEDS: ENOXAPARIN 30 MG/0.3 ML SYRINGE SUBCUT SCH (09:53)
[2016-06-20] MEDS: amLODIPine 5 MG TABLET PER TUBE SCH (09:54)
[2016-06-20] MEDS: predniSONE 10 MG TABLET PO SCH (09:54)
[2016-06-20] MEDS: POTASSIUM PHOS/SOD PHOS POWDER 250 MG PACK PO SCH ×3 (09:54→22:26)
[2016-06-20] MEDS: VENLAFAXINE 75 MG TABLET PO SCH ×2 (09:54→22:27)
[2016-06-20] MEDS: ALLOPURINOL 300 MG TABLET PER TUBE SCH (09:54)
[2016-06-20] MEDS: FOLIC ACID 1 MG TABLET PO SCH (09:54)
[2016-06-20] MEDS: MEMANTINE 10 MG TABLET PO SCH ×2 (09:54→22:27)
[2016-06-20] MEDS: LANSOPRAZOLE ODT 30 MG TABLET PO SCH (09:54)
[2016-06-20] MEDS: hydroCHLOROthiazide 25 MG TABLET PO SCH (09:54)
[2016-06-20] MEDS: DESITIN 4OZ/NYSTATIN 15 GRAM MIXTURE PASTE TOP SCH ×2 (09:55→22:25)
[2016-06-20] MEDS: DONEPEZIL 10 MG TABLET PER TUBE SCH (22:27)
[2016-06-21] MEDS: ALBUTEROL/IPRATROPIUM 3 ML NEB RESP TX SCH ×7 (00:23→23:49)
[2016-06-21] MEDS: THEOPHYLLINE 5.33 MG/ML 30 ML/BOTTLE PO SCH ×3 (05:53→21:02)
[2016-06-21] MEDS: LEVOTHYROXINE 75 MCG TABLET PER TUBE SCH ×2 (05:54→07:12)
--- NOTE | 2016-06-21 07:34 | Case Mgmt Physician Query Form ---
LONG STAY PHYSICIAN RECERTIFICATION *This form is to be completed for all Medicare patients before they reach day 20 of their hospitalization. Please complete each section as appropriate.* I certify that hospitalization, and continued hospitalization, for this patient is medically necessary as follows: 1) Reasons of either continued hospitalization of the patient for medical treatment or medically required diagnostic study or special or unusual services for cost outlier cases are as follows: awaiting swing bed 2) Estimated time patient will need to remain in hospital: until swing bed 3) Plan for Post Hospital Care: ( ) Home with Primary Care Follow up ( ) Home with Home Health Follow up (x ) LTACH/ Acute Care Rehab/ SNF/Intermediate ( ) Other: If you have any questions, please contact me. Thank you, oSphie Sargent R.N. Case Management P: [phone] F: [phone] E: [email or web address] If you have any questions, please contact me. Thank you, Michelle ARCHIBALD Email:[email or web address]
--- NOTE | 2016-06-21 08:34 | Pulmonology Progress Note ---
Pulmonary - PN: Subj Interval history: Patient is an 81-year-old white man that has a history of COPD and came in with respiratory distress and pneumonia. He is very debilitated but is doing better now. He got his PEG tube and is getting feedings. He apparently did fairly well through the night and his breathing is better. He is comfortable on low- flow oxygen. He is tolerating his tube feedings. He will continue with physical therapy and probably go to a swing bed soon. Exam (Progress Note) - Constitutional Vitals: Period Temp Pulse Resp BP Sys/Grimes Pulse Ox Last 24 Hr 97.4 F-98.9 F 68-88 18-24 109-128/53-82 95-99 Exam: General appearance: no acute distress (Patient is chronically ill-appearing. He is responding a little better and seems comfortable.) - Head Head exam: Present: normal inspection, normocephalic - Eye Eye exam: Present: EOMI, other (He has bilateral arcus). Absent: scleral icterus Pupils: Present: JOZEF - ENT ENT exam: Present: normal exam, he has low flow oxygen in place now. - Neck Neck exam: Absent: tenderness, thyromegaly - Respiratory Respiratory exam: Present: He has diminished breath sounds with prolonged expiration. He has a barrel shaped chest with distant breath sounds. He does not have any wheezing at present and has only minimal rhonchi. - Cardiovascular Cardiovascular exam: Present: regular rate and rhythm, no murmur or gallop. - GI/Abdominal GI/Abdominal exam: Present: Normal bowel sounds, soft. He has a PEG tube in place now. absent: organomegaly, tenderness - Extremities Exam Extremities exam: Absent: calf tenderness, edema, his extremities are quite emaciated. - Neurological Exam Neurological exam: Present: He does move his extremities okay. He does do a little physical therapy. - Skin Skin exam: Present: warm, dry Results - Labs CBC & BMP: 06/14/16 05:48 06/18/16 22:29 Assessment and Plan (1) Respiratory failure Status: Acute Assessment and plan: Patient has had CO2 retention and was intubated on the ventilator . He is still breathing relatively well off the ventilator and his breathing is much more comfortable. He is tolerating respiratory therapy fairly well. Current Visit: Yes Qualifiers: Chronicity: acute on chronic Respiratory failure complication: hypoxia Qualified Code(s): J96.21 - Acute and chronic respiratory failure with hypoxia (2) Right lower lobe pneumonia Status: Acute Assessment and plan: The patient has right lower lobe consolidation and is on IV antibiotics. He has grown Haemophilus influenza out on culture and is getting his antibiotics. His pneumonia is much improved and his breathing is fairly stable. He has completed his course of antibiotics. Overall he is stable. Current Visit: Yes Qualifiers: Pneumonia type: due to Haemophilus influenzae Qualified Code(s): J14 - Pneumonia due to Hemophilus influenzae (3) COPD (chronic obstructive pulmonary disease) Status: Chronic Assessment and plan: Patient looks like he has severe COPD. We will continue with steroids and respiratory therapy. He still requires some suctioning. He has been able to move around a little more and coughing better. Overall he is fairly stable. He will continue with physical therapy and should be able to go to the swing bed at any time. Current Visit: Yes (4) Dementia Status: Chronic Assessment and plan: Patient has a history of dementia. He tries to talk a little bit but is hard to understand. He is talking a little better now. Current Visit: Yes Qualifiers: Dementia type: Alzheimer's disease Alzheimer's disease onset: early-onset Dementia behavioral disturbance: without behavioral disturbance Qualified Code(s): G30.0 - Alzheimer's disease with early onset; F02.80 - Dementia in other diseases classified elsewhere without behavioral disturbance (5) Protein-calorie malnutrition, moderate Status: Chronic Assessment and plan: The patient will require supplemental nutrition. He is getting his PEG tube feedings now. Current Visit: Yes (6) HTN (hypertension) Status: Chronic Assessment and plan: Patient has a history of hypertension. He is hemodynamically stable. His blood pressure and heart rate are still reasonably stable. Current Visit: Yes Qualifiers: Hypertension type: essential hypertension Qualified Code(s): I10 - Essential (primary) hypertension (7) Hypothyroid Status: Chronic Assessment and plan: Patient will continue thyroid replacement. Current Visit: Yes Qualifiers: Hypothyroidism type: acquired Qualified Code(s): E03.9 - Hypothyroidism, unspecified
[2016-06-21] MEDS: ENOXAPARIN 30 MG/0.3 ML SYRINGE SUBCUT SCH (12:02)
[2016-06-21] MEDS: MEMANTINE 10 MG TABLET PO SCH ×2 (12:04→21:01)
[2016-06-21] MEDS: VENLAFAXINE 75 MG TABLET PO SCH ×2 (12:04→21:01)
[2016-06-21] MEDS: hydroCHLOROthiazide 25 MG TABLET PO SCH (12:04)
[2016-06-21] MEDS: ALLOPURINOL 300 MG TABLET PER TUBE SCH (12:04)
[2016-06-21] MEDS: predniSONE 10 MG TABLET PO SCH (12:05)
[2016-06-21] MEDS: FOLIC ACID 1 MG TABLET PO SCH (12:05)
[2016-06-21] MEDS: LANSOPRAZOLE ODT 30 MG TABLET PO SCH (12:05)
[2016-06-21] MEDS: amLODIPine 5 MG TABLET PER TUBE SCH (12:05)
[2016-06-21] MEDS: POTASSIUM PHOS/SOD PHOS POWDER 250 MG PACK PO SCH ×3 (12:06→21:01)
--- NOTE | 2016-06-21 13:14 | Hospitalist Progress Note ---
Assessment and Plan - Time spent with patient Time spent with patient: Greater than 30 minutes (1) PEG (percutaneous endoscopic gastrostomy) status Status: Acute Assessment and plan: PEG placed for aspiration. Current Visit: Yes (2) Right lower lobe pneumonia Status: Acute Assessment and plan: Received full treatment. Current Visit: Yes Qualifiers: Pneumonia type: due to Haemophilus influenzae Qualified Code(s): J14 - Pneumonia due to Hemophilus influenzae (3) COPD (chronic obstructive pulmonary disease) Status: Chronic Assessment and plan: Well controlled. Continue current management. Current Visit: Yes (4) Dementia Status: Chronic Assessment and plan: Continue current management. Current Visit: Yes Qualifiers: Dementia type: Alzheimer's disease Alzheimer's disease onset: early-onset Dementia behavioral disturbance: without behavioral disturbance Qualified Code(s): G30.0 - Alzheimer's disease with early onset; F02.80 - Dementia in other diseases classified elsewhere without behavioral disturbance (5) HTN (hypertension) Status: Chronic Assessment and plan: Continue current management. Current Visit: Yes Qualifiers: Hypertension type: essential hypertension Qualified Code(s): I10 - Essential (primary) hypertension (6) Hypothyroid Status: Chronic Assessment and plan: Continue current management. Current Visit: Yes Qualifiers: Hypothyroidism type: acquired Qualified Code(s): E03.9 - Hypothyroidism, unspecified Hospitalist: Subjective Interval history: No complaints or overnight events. Exam - Constitutional Vitals: Period Temp Pulse Resp BP Sys/Grimes Pulse Ox Last 24 Hr 97.4 F-98.9 F 68-88 18-24 109-128/53-82 95-99 General appearance: no acute distress, under weight - Head Head exam: Present: normal inspection, normocephalic, atraumatic - Eye Eye exam: Present: EOMI Pupils: Present: JOZEF - ENT ENT exam: Present: normal exam - Neck Neck exam: Present: normal inspection - Respiratory Respiratory exam: Present: clear to auscultation bilaterally. Absent: rhonchi, wheezes - Cardiovascular Cardiovascular exam: Present: regular rate and rhythm. Absent: gallop, rubs, systolic murmur - GI/Abdominal GI/Abdominal exam: Present: normal bowel sounds, soft. Absent: distended, firm , guarding, tenderness, rebound - Extremities Exam Extremities exam: Present: normal inspection. Absent: calf tenderness, edema Results - Labs CBC & BMP: 05/01/17 05:48 06/18/16 22:29 Lab Results: I have reviewed the past 24 hour labs
[2016-06-21] MEDS: DESITIN 4OZ/NYSTATIN 15 GRAM MIXTURE PASTE TOP SCH ×2 (19:07→21:01)
[2016-06-21] MEDS: DONEPEZIL 10 MG TABLET PER TUBE SCH (21:01)
[2016-06-22] MEDS: ALBUTEROL/IPRATROPIUM 3 ML NEB RESP TX SCH ×4 (04:04→14:00)
[2016-06-22 06:24] LABS: Basophils % 0.2 % (0.0-0.8); Hemoglobin 13.5 GM/DL (14.0-18.0); Immature Granulocytes Absolute 0.09 #; Lymphocytes # 2.2 10*3/uL (1.4-4.0); Lymphocytes % 25.1 % (21.2-54.2); Mean Corpuscular HGB Conc 34.6 GM/DL (32-36); Mean Corpuscular Hemoglobin 30 PG (27-34); Mean Corpuscular Volume 85.9 FL (87-102); Mean Platelet Volume 9.9 FL (9.6-12.0); Monocytes # 0.5 10*3/uL (0.11-0.8); Monocytes % 5.4 % (1.7-12.7); Neutrophils # 6.1 10*3/uL (1.4-7.4); Neutrophils % 68.3 % (38.7-73.9); Platelet Count 299 T/CUMM (130-400); Red Blood Count 4.54 MC/CUMM (3.8-5.5); Red Cell Distribution Width 15.3 % (9.3-17.3); White Blood Count 8.9 T/CUMM (4-12)
[2016-06-22] MEDS: LEVOTHYROXINE 75 MCG TABLET PER TUBE SCH (06:47)
[2016-06-22] MEDS: THEOPHYLLINE 5.33 MG/ML 30 ML/BOTTLE PO SCH ×2 (06:47→13:44)
[2016-06-22 06:59] LABS: Calcium 8.6 MG/DL (8.5-10.1); Osmolality,Calculated 266.4 MOS/KG (273-304); Potassium 4.7 MMOL/L (3.5-5.1)
--- NOTE | 2016-06-22 08:19 | Pulmonology Progress Note ---
Pulmonary - PN: Subj Interval history: Patient is an 81-year-old white man that has a history of COPD and came in with respiratory distress and pneumonia. He is very debilitated but is doing better now. He got his PEG tube and is getting feedings. He had a fairly good night and he is breathing much better. He is awake this morning and looks comfortable. Overall he looks quite stable. He is going to a swing bed today. Exam (Progress Note) - Constitutional Vitals: Period Temp Pulse Resp BP Sys/Grimes Pulse Ox Last 24 Hr 97.3 F-98.6 F 70-84 16-24 109-122/47-65 93-99 Exam: General appearance: no acute distress (Patient is chronically ill-appearing. He is responding a little better and seems comfortable. He is not having any respiratory distress.) - Head Head exam: Present: normal inspection, normocephalic - Eye Eye exam: Present: EOMI, other (He has bilateral arcus). Absent: scleral icterus Pupils: Present: JOZEF - ENT ENT exam: Present: normal exam, he has low flow oxygen in place now. - Neck Neck exam: Absent: tenderness, thyromegaly - Respiratory Respiratory exam: Present: He has diminished breath sounds with prolonged expiration. He has a barrel shaped chest with distant breath sounds. He does not have any wheezing at present and has only minimal rhonchi. Overall his lungs sound much better. - Cardiovascular Cardiovascular exam: Present: regular rate and rhythm, no murmur or gallop. - GI/Abdominal GI/Abdominal exam: Present: Normal bowel sounds, soft. He has a PEG tube in place now. absent: organomegaly, tenderness - Extremities Exam Extremities exam: Absent: calf tenderness, edema, his extremities are quite emaciated. - Neurological Exam Neurological exam: Present: He does move his extremities okay. He does do a little physical therapy. - Skin Skin exam: Present: warm, dry Results - Labs CBC & BMP: 06/22/16 06:04 06/22/16 06:04 Assessment and Plan (1) Respiratory failure Status: Acute Assessment and plan: Patient has had CO2 retention and was intubated on the ventilator . He is still breathing relatively well off the ventilator and his breathing is much more comfortable. He is tolerating respiratory therapy fairly well. Overall his breathing is doing much better. Current Visit: Yes Qualifiers: Chronicity: acute on chronic Respiratory failure complication: hypoxia Qualified Code(s): J96.21 - Acute and chronic respiratory failure with hypoxia (2) Right lower lobe pneumonia Status: Acute Assessment and plan: The patient has right lower lobe consolidation and is on IV antibiotics. He has grown Haemophilus influenza out on culture and is getting his antibiotics. His pneumonia is much improved and his breathing is fairly stable. He has completed his course of antibiotics. Overall he is stable. Current Visit: Yes Qualifiers: Pneumonia type: due to Haemophilus influenzae Qualified Code(s): J14 - Pneumonia due to Hemophilus influenzae (3) COPD (chronic obstructive pulmonary disease) Status: Chronic Assessment and plan: Patient looks like he has severe COPD. We will continue with steroids and respiratory therapy. He still requires some suctioning. He has been able to move around a little more and coughing better. Overall he is fairly stable. He will continue with physical therapy and should be able to go to the swing bed at any time. Current Visit: Yes (4) Dementia Status: Chronic Assessment and plan: Patient has a history of dementia. He tries to talk a little bit but is hard to understand. He is talking a little better now. He is more alert today. Current Visit: Yes Qualifiers: Dementia type: Alzheimer's disease Alzheimer's disease onset: early-onset Dementia behavioral disturbance: without behavioral disturbance Qualified Code(s): G30.0 - Alzheimer's disease with early onset; F02.80 - Dementia in other diseases classified elsewhere without behavioral disturbance (5) Protein-calorie malnutrition, moderate Status: Chronic Assessment and plan: The patient will require supplemental nutrition. He is getting his PEG tube feedings now. Current Visit: Yes (6) HTN (hypertension) Status: Chronic Assessment and plan: Patient has a history of hypertension. He is hemodynamically stable. His blood pressure and heart rate are still reasonably stable. Current Visit: Yes Qualifiers: Hypertension type: essential hypertension Qualified Code(s): I10 - Essential (primary) hypertension (7) Hypothyroid Status: Chronic Assessment and plan: Patient will continue thyroid replacement. Current Visit: Yes Qualifiers: Hypothyroidism type: acquired Qualified Code(s): E03.9 - Hypothyroidism, unspecified
[2016-06-22] MEDS: LANSOPRAZOLE ODT 30 MG TABLET PO SCH (09:52)
[2016-06-22] MEDS: ALLOPURINOL 300 MG TABLET PER TUBE SCH (09:52)
[2016-06-22] MEDS: hydroCHLOROthiazide 25 MG TABLET PO SCH (09:52)
[2016-06-22] MEDS: POTASSIUM PHOS/SOD PHOS POWDER 250 MG PACK PO SCH (09:52)
[2016-06-22] MEDS: VENLAFAXINE 75 MG TABLET PO SCH (09:53)
[2016-06-22] MEDS: amLODIPine 5 MG TABLET PER TUBE SCH (09:53)
[2016-06-22] MEDS: FOLIC ACID 1 MG TABLET PO SCH (09:53)
[2016-06-22] MEDS: predniSONE 10 MG TABLET PO SCH (09:53)
[2016-06-22] MEDS: MEMANTINE 10 MG TABLET PO SCH (09:53)
[2016-06-22] MEDS: ENOXAPARIN 30 MG/0.3 ML SYRINGE SUBCUT SCH (09:54)
[2016-06-22] MEDS: DESITIN 4OZ/NYSTATIN 15 GRAM MIXTURE PASTE TOP SCH (10:15)
--- NOTE | 2016-06-22 13:31 | Discharge Summary ---
Hospital Course - Hospital Course Hospital Course: Mr Oconnell was admitted with acute respiratory failure secondary to right lower lobe pneumonia. He was intubated and admitted to the intensive care unit. He was seen in consultation by pulmonology. Secondary issues included acute kidney injury and COPD exacerbation. He was IV hydrated with return to normal renal function. Sputum culture returned hemophilus influenza. Patient had a bronchoscopy and bronchial washings returned staph aureus methicillin-resistant bacteria. Patient's antibiotics were adjusted to intravenous aztreonam and vancomycin with which he received complete treatment for. Patient was successfully extubated and was noted to have dysphasia. He was seen by gastroenterology who proceeded with PEG tube placement. Patient waited swing bed placement and by discharge had met maximum benefit of hospitalization. I spent 40 minutes coordinating this discharge. - Time spent with patient Time with patient DS: Greater than 30 minutes Diagnosis - Discharge Diagnosis (1) PEG (percutaneous endoscopic gastrostomy) status Status: Acute (2) Right lower lobe pneumonia Status: Acute (3) COPD (chronic obstructive pulmonary disease) Status: Chronic (4) Dementia Status: Chronic (5) HTN (hypertension) Status: Chronic (6) Hypothyroid Status: Chronic Discharge Plan - Discharge Data Disposition: Disch To Home/Self Care Condition at Discharge: Stable Discharge Diet: advance to your usual diet Activity: resume usual activities as tolerated Hygiene: no restrictions Weight Bearing at Discharge: full weight bearing - Discharge Medications New Lansoprazole Odt Tab [Prevacid Solutab] 30 mg PO DAILY #0 tablet Theophylline Liquid [Elixophyllin] 80 mg PO Q8HR #0 bottle Continue Cholecalciferol (Vitamin D3) [Vitamin D3] 50,000 unit PO Q7DAY Zolpidem Tartrate 5 mg PO BEDTIME Clorazepate [Tranxene] 3.75 mg PO BID hydroCHLOROthiazide [Hydrochlorothiazide] 25 mg PO DAILY Folic Acid Tab 1 mg PO DAILY Donepezil [Aricept] 10 mg PO BEDTIME Levothyroxine Tab [Synthroid Tab] 75 mcg PO DAILY@0700 Venlafaxine HCl [Venlafaxine XR] 75 mg PO BID W/MEALS Quetiapine Fumarate 100 mg PO DAILY amLODIPine [Norvasc] 5 mg PO DAILY Memantine HCl 10 mg PO BID Allopurinol 300 mg PO DAILY Discontinued Omeprazole 40 mg PO DAILY - Follow Up or Referral - Forms/Instructions Exam - Constitutional Vitals: Period Temp Pulse Resp BP Sys/Grimes Pulse Ox Last 24 Hr 97.3 F-98.6 F 70-84 16-23 109-119/47-65 93-99 General appearance: normal weight, no acute distress - Head Head exam: Present: normal inspection, normocephalic - ENT ENT exam: Present: normal exam - Neck Neck exam: Present: normal inspection - Respiratory Respiratory exam: Present: clear to auscultation bilaterally. Absent: accessory muscle use, prolonged expiratory phase, wheezes - Cardiovascular Cardiovascular exam: Present: regular rate and rhythm. Absent: bradycardia, irregular rhythm, systolic murmur - GI/Abdominal GI/Abdominal exam: Present: normal bowel sounds. Absent: ascites, distended, hypoactive bowel sounds, tenderness - Extremities Exam Extremities exam: Present: normal inspection. Absent: normal capillary refill Discharge Results Procedures and tests throughout hospitalization: Pending Orders 06/03/16 07:45 AFB Culture/Smears Routine Fungal Culture w/ Prep Routine 06/24/16 04:00 Basic Metabolic Panel MOTH Magnesium MOTH Phosphorous MOTH Prealbumin MOTH Labs on day of discharge: Labs from last 24 hours 06/22/16 06/22/16 06/22/16 11:20 07:02 06:04 WBC RBC Hgb Hct MCV MCH MCHC RDW Plt Count MPV Neut % (Auto) Lymph % (Auto) [place] % (Auto) Eos % (Auto) Baso % (Auto) Neut # (Auto) Lymph # (Auto) [place] # (Auto) Eos # (Auto) Baso # (Auto) Immature Gran % Nucleated RBC % Immature Gran # Nucleated RBCs # Sodium 133 L Potassium 4.7 Chloride 92 L Carbon Dioxide 31 Anion Gap 14.7 BUN 17 Creatinine 0.90 GFR Calculation 75 BUN/Creatinine Ratio 18.00 Glucose 88 POC Glucose 129 H 111 H Calculated Osmolality 266.4 L Calcium 8.6 06/22/16 06/21/16 06/21/16 06:04 20:15 15:20 WBC 8.9 RBC 4.54 Hgb 13.5 L Hct 39.0 L MCV 85.9 L MCH 30 MCHC 34.6 RDW 15.3 Plt Count 299 MPV 9.9 Neut % (Auto) 68.3 Lymph % (Auto) 25.1 [place] % (Auto) 5.4 Eos % (Auto) 0.0 Baso % (Auto) 0.2 Neut # (Auto) 6.1 Lymph # (Auto) 2.2 [place] # (Auto) 0.5 Eos # (Auto) 0.0 Baso # (Auto) 0.0 Immature Gran % 1.0 Nucleated RBC % 0.0 Immature Gran # 0.09 Nucleated RBCs # 0.00 Sodium Potassium Chloride Carbon Dioxide Anion Gap BUN Creatinine GFR Calculation BUN/Creatinine Ratio Glucose POC Glucose 103 98 Calculated Osmolality Calcium Preliminary micro results at discharge 06/03/16 07:45 Mycobacterial Culture - Preliminary Bronchial Washings No AFB isolated at 3 weeks 06/03/16 07:45 Fungal Culture - Preliminary Bronchial Washings No Fungus isolated at 1 week DS: Provider Date of admission: 06/02/16 04:04 Primary care physician: . No PCP Attending physician on admission: Diony Diez MD Consults: 06/02/16 05:41 Consult to Pastoral Services [CONS] Routine Comment: Pastoral Screen: Request Call [employer] Wire[employer] Visit Pastoral Screen Source of Request: Patient Family 06/02/16 05:52 Consult to Physician [CONS] Routine Comment: pneumonia, copd Consulting Provider: Amanuel Martínez 06/08/16 13:05 Consult to Pharmacy [CONS] Routine Reason for Pharmacy Consult: Dose/Manage Vancomycin 06/09/16 10:08 Consult to Case Mgmt/Social Srvs [CONS] Routine Reason for Case Mgmt/Social Srvs: Discharge Planning 06/14/16 10:24 Consult to Physical Therapy [CONS] Routine Reason for Physical Therapy: Evaluate and Treat 06/16/16 08:28 Consult to Physician [CONS] Routine Comment: PEG Consulting Provider: Hiren Fields Consult to Specialist Group: Gastroenterology When should Consulting Provider be notified: Now Person Notified: jose Date Notified: 06/16/16 Time Notified: 09:16 06/17/16 08:57 Consult to Dietitian [CONS] Routine Reason for Dietitian: TF-Initiate/Manage Consult Comment: Tube feeding recommendations Discharging clinician: Noemy Dao MD Expected date of discharge: 06/22/16
[2016-06-22 21:41] VITALS: BP 116/66
== END 2016-06-22 16:15 | disposition swing bed (61) | DRG 207 ==
LOC: N.ED 03:07 → N.EDINP 04:03 → SUATTDRO 04:04 → N.ICU 04:36 → N.2E 06-09 14:10
PROVIDERS: ADMIT Internal Medicine; ATTEND Internal Medicine
PROC: EGDWPEG (ICD-10-PCS; 2016-06-17 06:35)

== ENCOUNTER 2017-01-24 22:23 | Inpatient (IN) ==
[2017-01-25] MEDS ORDERED: SODIUM CHLORIDE 0.9% 500 ML IV STA (02:46)
[2017-01-25] MEDS ORDERED: cefTRIAXone 1,000 MG in SODIUM CHLORIDE 0.9% 100 ML IV STA (02:46)
[2017-01-25] MEDS ORDERED: methylPREDNISolone SOD SUC 125 MG/2 ML VIAL IV STA (02:46)
[2017-01-25] MEDS ORDERED: ONDANSETRON 4 MG/2 ML VIAL IV STA (02:46)
[2017-01-25] MEDS ORDERED: ALBUTEROL 2.5 MG/3 ML NEB RESP TX SCH (03:00)
[2017-01-25 03:01] LABS: Basophils # 0.1 10*3/uL (0.0-0.2); Basophils % 0.5 % (0.0-0.8); Eosinophils # 0.2 10*3/uL (0.0-0.87); Eosinophils % 2.3 % (0.00-10.9); Hematocrit 42.9 VOL% (42.0-52.0); Hemoglobin 14.7 GM/DL (14.0-18.0); Immature Granulocytes % 1.3 %; Immature Granulocytes Absolute 0.13 #; Lymphocytes % 28.7 % (21.2-54.2); Mean Corpuscular HGB Conc 34.3 GM/DL (32-36); Mean Corpuscular Hemoglobin 30 PG (27-34); Mean Corpuscular Volume 88.1 FL (87-102); Mean Platelet Volume 11.6 FL (9.6-12.0); Monocytes # 1.1 10*3/uL (0.11-0.8); Monocytes % 10.9 % (1.7-12.7); Neutrophils # 5.8 10*3/uL (1.4-7.4); Neutrophils % 56.3 % (38.7-73.9); Platelet Count 165 T/CUMM (130-400); Red Blood Count 4.87 MC/CUMM (3.8-5.5); White Blood Count 10.3 T/CUMM (4-12)
[2017-01-25 03:05] LABS: PT Patient Result 10.2 SECS
[2017-01-25 03:11] LABS: Alanine Aminotransferase 19 U/L (16-61); Albumin 3.2 G/DL (3.4-5.0); Alkaline Phosphatase 74 U/L (45-117); Aspartate Amino Transferase 16 U/L (0-37); Blood Urea Nitrogen 32 MG/DL (7-18); Calcium 8.6 MG/DL (8.5-10.1); Glucose 100 MG/DL (74-106); Magnesium 2.2 MG/DL (1.8-2.4); Osmolality,Calculated 276.1 MOS/KG (273-304); Potassium 4.4 MMOL/L (3.5-5.1); Sodium 135 MMOL/L (136-145); Total Protein 6.6 G/DL (6.4-8.3); Troponin I Only < 0.015 NG/ML (0.00-0.045)
[2017-01-25 03:30] LABS: ABG HCO3 24.4 MMOL/L (20-26); ABG Oxygen Saturation 98.5 % (95-100); ABG PCO2 43.3 MM HG (35-48); ABG PH 7.376 (7.35-7.45); ABG TCO2 21.8 MMOL/L (23-27)
[2017-01-25] MEDS ORDERED: methylPREDNISolone SOD SUC 125 MG/2 ML VIAL ONE (03:44)
[2017-01-25] MEDS ORDERED: ONDANSETRON 4 MG/2 ML VIAL ONE (03:44)
[2017-01-25] MEDS ORDERED: cefTRIAXone 1,000 MG VIAL ONE (03:44)
[2017-01-25] MEDS ORDERED: CLINDAMYCIN INJ 900 MG in PREMIX 1 EACH IV STA (03:46)
[2017-01-25 04:03] LABS: Ammonia 13 UMOL/L (11-32)
[2017-01-25 04:07] LABS: Lactic Acid 1.3 MMOL/L (0.4-2.0)
[2017-01-25] MEDS ORDERED: SUCCINYLCHOLINE 200 MG/10 ML VIAL ONE (05:15)
[2017-01-25] MEDS ORDERED: ETOMIDATE 20 MG/10 ML VIAL IV ONE (05:15)
[2017-01-25] MEDS ORDERED: ETOMIDATE 20 MG/10 ML VIAL IV STA (05:23)
[2017-01-25] MEDS ORDERED: SUCCINYLCHOLINE 200 MG/10 ML VIAL IV STA (05:23)
[2017-01-25] MEDS ORDERED: fentaNYL 100 MCG/2 ML VIAL IV STA (05:24)
[2017-01-25] MEDS ORDERED: fentaNYL INJ 1,250 MCG in SODIUM CHLORIDE 0.9% 225 ML IV SCH (05:30)
[2017-01-25] MEDS ORDERED: CLINDAMYCIN INJ 50 ML IV ONE (05:36)
[2017-01-25] MEDS ORDERED: fentaNYL 100 MCG/2 ML VIAL ONE (05:37)
[2017-01-25] MEDS ORDERED: PROPOFOL 1,000 MG/100 ML BOTTLE IV ONE (05:37)
[2017-01-25] MEDS: PROPOFOL 1,000 MG/100 ML BOTTLE IV SCH (05:44)
[2017-01-25 05:51] LABS: Apearance,Urine Slightly Hazy (Clear); Bacteria,Urine Occasional /HPF (Few); Bilirubin,Urine Negative (Negative); Blood, Urine Moderate mg/dL (Negative); Glucose,Urine (UA) Negative (Negative); Hyaline Casts,Urine 4 /LPF (0-3); Ketones,Urine Negative (Negative); Mucus,Urine Occasional /LPF (Occasional); Nitrite,Urine Negative (Negative); Protein,Urine Negative; RBC,Urine 104 /HPF (0-4); Squamous Epithelial Cell,Urine Occasional /HPF (0-10); Urine Color Yellow (Yellow); Urine Specific Gravity 1.012 (1.001-1.035); WBC,Urine 8 /HPF (0-6)
[2017-01-25] MEDS ORDERED: VECURONIUM 10 MG VIAL IV ONE (06:11)
[2017-01-25] MEDS ORDERED: VECURONIUM 10 MG VIAL IV STA (06:12)
[2017-01-25 06:14] LABS: ABG Base Excess -4.2 MMOL/L (-2.5-2.5); ABG Oxygen Saturation 98.6 % (95-100); ABG PCO2 54.4 MM HG (35-48); ABG PH 7.253 (7.35-7.45); ABG TCO2 21.3 MMOL/L (23-27); Allen Test Positive; Pt O2 Delivery Device Ventilator
[2017-01-25] MEDS: FENTANYL IV SCH ×2 (06:26→21:49)
[2017-01-25] MEDS: SODIUM CHLORIDE 0.45% IV SCH ×2 (06:26→21:49)
[2017-01-25] MEDS ORDERED: ALBUTEROL/IPRATROPIUM 3 ML NEB RESP TX PRN (08:18)
[2017-01-25] MEDS ORDERED: SODIUM CHLORIDE 0.9% 500 ML IV ONE (08:18)
[2017-01-25] MEDS ORDERED: ACETAMINOPHEN 325 MG TABLET PO PRN (08:18)
[2017-01-25] MEDS ORDERED: ENOXAPARIN 40 MG/0.4 ML SYRINGE ONE (08:31)
[2017-01-25] MEDS: ENOXAPARIN 30 MG/0.3 ML SYRINGE SUBCUT SCH (08:35)
[2017-01-25 10:17] LABS: ABG Base Excess -5.2 MMOL/L (-2.5-2.5); ABG HCO3 20.2 MMOL/L (20-26); ABG Oxygen Saturation 98.9 % (95-100); ABG PCO2 38.9 MM HG (35-48); ABG PH 7.328 (7.35-7.45); ABG TCO2 17.8 MMOL/L (23-27)
[2017-01-25] MEDS: LINEZOLID INJ 600 MG in PREMIX 1 EACH IV SCH ×2 (10:21→21:45)
[2017-01-25] MEDS ORDERED: PANTOPRAZOLE 40 MG VIAL IV ONE (10:23)
[2017-01-25] MEDS ORDERED: methylPREDNISolone SOD SUC 40 MG/1 ML VIAL ONE (10:23)
[2017-01-25] MEDS: methylPREDNISolone SOD SUC 40 MG/1 ML VIAL IV SCH ×2 (10:26→17:21)
[2017-01-25] MEDS: PANTOPRAZOLE 40 MG VIAL IV SCH (10:27)
[2017-01-25] MEDS: ALBUTEROL/IPRATROPIUM 3 ML NEB RESP TX SCH ×4 (11:40→20:01)
[2017-01-25] MEDS: SODIUM CHLORIDE 0.9% 1,000 ML IV SCH ×3 (13:00→21:48)
[2017-01-25] MEDS ORDERED: VANCOMYCIN INJ 750 MG in SODIUM CHLORIDE 0.9% 250 ML IV SCH (15:00)
[2017-01-25] MEDS: DOCUSATE SODIUM 100 MG CAPSULE PO SCH ×2 (15:58→21:45)
[2017-01-25] MEDS ORDERED: LEVOFLOXACIN INJ 750 MG in PREMIX 1 EACH IV SCH (16:00)
[2017-01-25] MEDS: NOREPINEPHRINE 8 MG in SODIUM CHLORIDE 0.9% 242 ML IV SCH (16:32)
[2017-01-25] MEDS: MEROPENEM 1,000 MG in SYRINGE 1 EACH IV SCH (16:32)
[2017-01-26] MEDS: PROPOFOL 1,000 MG/100 ML BOTTLE IV SCH ×2 (00:01→18:17)
[2017-01-26] MEDS: ALBUTEROL/IPRATROPIUM 3 ML NEB RESP TX SCH ×6 (00:36→20:25)
[2017-01-26] MEDS ORDERED: SODIUM CHLORIDE 0.9% 200 ML IV ONE (00:56)
[2017-01-26] MEDS: methylPREDNISolone SOD SUC 40 MG/1 ML VIAL IV SCH ×3 (03:00→17:45)
[2017-01-26 03:52] LABS: ABG Base Excess -3.9 MMOL/L (-2.5-2.5); ABG HCO3 21.2 MMOL/L (20-26); ABG Oxygen Saturation 98.9 % (95-100); ABG PCO2 53.1 MM HG (35-48); ABG PH 7.268 (7.35-7.45); ABG TCO2 20.7 MMOL/L (23-27); Allen Test Positive; Pt O2 Delivery Device Ventilator
[2017-01-26] MEDS: MEROPENEM 1,000 MG in SYRINGE 1 EACH IV SCH ×2 (04:00→15:12)
[2017-01-26 05:13] LABS: Basophils % 0.1 % (0.0-0.8); Hematocrit 40.1 VOL% (42.0-52.0); Hemoglobin 13.6 GM/DL (14.0-18.0); Immature Granulocytes % 0.7 %; Immature Granulocytes Absolute 0.12 #; Lymphocytes # 0.8 10*3/uL (1.4-4.0); Lymphocytes % 5.2 % (21.2-54.2); Mean Corpuscular HGB Conc 33.9 GM/DL (32-36); Mean Corpuscular Hemoglobin 31 PG (27-34); Mean Corpuscular Volume 90.3 FL (87-102); Mean Platelet Volume 11.1 FL (9.6-12.0); Monocytes % 5.9 % (1.7-12.7); Neutrophils # 14.2 10*3/uL (1.4-7.4); Neutrophils % 88.1 % (38.7-73.9); Platelet Count 139 T/CUMM (130-400); Red Blood Count 4.44 MC/CUMM (3.8-5.5); Red Cell Distribution Width 14.8 % (9.3-17.3); White Blood Count 16.1 T/CUMM (4-12)
[2017-01-26 05:56] LABS: Magnesium 2.2 MG/DL (1.8-2.4); Phosphorous 3.7 MG/DL (2.5-4.9); Prealbumin 15.2 MG/DL (20-40)
[2017-01-26 07:06] LABS: Calcium 8.3 MG/DL (8.5-10.1); Osmolality,Calculated 278.8 MOS/KG (273-304); Potassium 4.7 MMOL/L (3.5-5.1)
[2017-01-26] MEDS: SODIUM CHLORIDE 0.9% 1,000 ML IV SCH ×2 (07:10→17:45)
[2017-01-26] MEDS: ENOXAPARIN 30 MG/0.3 ML SYRINGE SUBCUT SCH (09:59)
[2017-01-26] MEDS: LINEZOLID INJ 600 MG in PREMIX 1 EACH IV SCH ×2 (09:59→22:00)
[2017-01-26] MEDS: PANTOPRAZOLE 40 MG VIAL IV SCH (09:59)
[2017-01-26] MEDS: DOCUSATE SODIUM 100 MG CAPSULE PO SCH ×2 (10:03→22:01)
[2017-01-26] MEDS: FENTANYL IV SCH (11:12)
[2017-01-26] MEDS: SODIUM CHLORIDE 0.45% IV SCH (11:12)
[2017-01-26] MEDS: NOREPINEPHRINE 8 MG in SODIUM CHLORIDE 0.9% 242 ML IV SCH (11:12)
[2017-01-26] MEDS ORDERED: GLUCAGON 1 MG VIAL IM PRN (14:44)
[2017-01-26] MEDS ORDERED: DEXTROSE 50% 25 GM/50 ML VIAL IV PRN (14:44)
[2017-01-27] MEDS: PROPOFOL 1,000 MG/100 ML BOTTLE IV SCH ×5 (00:11→21:59)
[2017-01-27] MEDS: ALBUTEROL/IPRATROPIUM 3 ML NEB RESP TX SCH ×7 (00:40→23:06)
[2017-01-27] MEDS: SODIUM CHLORIDE 0.9% 1,000 ML IV SCH ×3 (03:45→23:16)
[2017-01-27] MEDS: methylPREDNISolone SOD SUC 40 MG/1 ML VIAL IV SCH ×3 (03:47→18:23)
[2017-01-27] MEDS: MEROPENEM 1,000 MG in SYRINGE 1 EACH IV SCH ×2 (03:47→16:26)
[2017-01-27 03:58] LABS: Pt O2 Delivery Device Ventilator
[2017-01-27 04:02] LABS: ABG Base Excess -1.1 MMOL/L (-2.5-2.5); ABG HCO3 23.5 MMOL/L (20-26); ABG Oxygen Saturation 94.7 % (95-100); ABG PCO2 41.9 MM HG (35-48); ABG PH 7.371 (7.35-7.45); ABG PO2 69.6 MM HG (80-95); ABG TCO2 21.4 MMOL/L (23-27)
[2017-01-27 05:37] LABS: Basophils % 0.2 % (0.0-0.8); Hematocrit 39.5 VOL% (42.0-52.0); Hemoglobin 13.2 GM/DL (14.0-18.0); Immature Granulocytes % 1.8 %; Immature Granulocytes Absolute 0.35 #; Lymphocytes # 1.1 10*3/uL (1.4-4.0); Lymphocytes % 5.6 % (21.2-54.2); Mean Corpuscular HGB Conc 33.4 GM/DL (32-36); Mean Corpuscular Hemoglobin 30 PG (27-34); Mean Corpuscular Volume 90.6 FL (87-102); Mean Platelet Volume 12.2 FL (9.6-12.0); Monocytes # 0.8 10*3/uL (0.11-0.8); Monocytes % 3.9 % (1.7-12.7); Neutrophils # 17.2 10*3/uL (1.4-7.4); Neutrophils % 88.5 % (38.7-73.9); Platelet Count 151 T/CUMM (130-400); Red Blood Count 4.36 MC/CUMM (3.8-5.5); Red Cell Distribution Width 15.1 % (9.3-17.3); White Blood Count 19.4 T/CUMM (4-12)
[2017-01-27 05:55] LABS: Calcium 8.4 MG/DL (8.5-10.1); Osmolality,Calculated 282.4 MOS/KG (273-304); Potassium 4.7 MMOL/L (3.5-5.1)
[2017-01-27 06:14] LABS: Magnesium 2.2 MG/DL (1.8-2.4); Phosphorous 2.8 MG/DL (2.5-4.9); Prealbumin 15.8 MG/DL (20-40)
[2017-01-27] MEDS: SODIUM CHLORIDE 0.45% IV SCH (07:47)
[2017-01-27] MEDS: FENTANYL IV SCH (07:47)
[2017-01-27] MEDS: ENOXAPARIN 30 MG/0.3 ML SYRINGE SUBCUT SCH (09:11)
[2017-01-27] MEDS: PANTOPRAZOLE 40 MG VIAL IV SCH (09:11)
[2017-01-27] MEDS: LINEZOLID INJ 600 MG in PREMIX 1 EACH IV SCH ×2 (09:11→21:09)
[2017-01-27] MEDS: DOCUSATE SODIUM 100 MG CAPSULE PO SCH ×2 (13:37→21:09)
[2017-01-28] MEDS: MEROPENEM 1,000 MG in SYRINGE 1 EACH IV SCH ×3 (02:21→17:56)
[2017-01-28] MEDS: methylPREDNISolone SOD SUC 40 MG/1 ML VIAL IV SCH ×3 (02:22→18:03)
[2017-01-28] MEDS: PROPOFOL 1,000 MG/100 ML BOTTLE IV SCH ×3 (02:37→17:21)
[2017-01-28 02:39] LABS: ABG Base Excess 1.7 MMOL/L (-2.5-2.5); ABG HCO3 26.2 MMOL/L (20-26); ABG Oxygen Saturation 98.4 % (95-100); ABG PCO2 40.7 MM HG (35-48); ABG PH 7.427 (7.35-7.45); ABG PO2 128.8 MM HG (80-95); ABG TCO2 27.5 MMOL/L (23-27); Allen Test Positive; Pt O2 Delivery Device Ventilator
[2017-01-28] MEDS: ALBUTEROL/IPRATROPIUM 3 ML NEB RESP TX SCH ×6 (03:18→23:22)
[2017-01-28 04:33] LABS: Basophils % 0.1 % (0.0-0.8); Hematocrit 36.5 VOL% (42.0-52.0); Hemoglobin 12.4 GM/DL (14.0-18.0); Immature Granulocytes % 2.8 %; Immature Granulocytes Absolute 0.47 #; Lymphocytes # 1.3 10*3/uL (1.4-4.0); Lymphocytes % 7.8 % (21.2-54.2); Mean Corpuscular Hemoglobin 31 PG (27-34); Mean Corpuscular Volume 89.7 FL (87-102); Mean Platelet Volume 11.1 FL (9.6-12.0); Monocytes # 0.6 10*3/uL (0.11-0.8); Monocytes % 3.8 % (1.7-12.7); NRBC # 0.02 10*3/uL; Neutrophils # 14.1 10*3/uL (1.4-7.4); Neutrophils % 85.5 % (38.7-73.9); Platelet Count 169 T/CUMM (130-400); Red Blood Count 4.07 MC/CUMM (3.8-5.5); White Blood Count 16.5 T/CUMM (4-12)
[2017-01-28 05:23] LABS: Calcium 8.2 MG/DL (8.5-10.1); Magnesium 2.1 MG/DL (1.8-2.4); Osmolality,Calculated 286.3 MOS/KG (273-304); Potassium 4.9 MMOL/L (3.5-5.1)
[2017-01-28] MEDS: SODIUM CHLORIDE 0.45% IV SCH (07:32)
[2017-01-28] MEDS: FENTANYL IV SCH (07:32)
[2017-01-28] MEDS: ENOXAPARIN 30 MG/0.3 ML SYRINGE SUBCUT SCH (07:50)
[2017-01-28] MEDS: PANTOPRAZOLE 40 MG VIAL IV SCH (07:51)
[2017-01-28] MEDS: SODIUM CHLORIDE 0.9% 1,000 ML IV SCH ×2 (09:34→18:32)
[2017-01-28] MEDS: DOCUSATE SODIUM 100 MG CAPSULE PO SCH ×2 (09:47→21:16)
[2017-01-28] MEDS: LINEZOLID INJ 600 MG in PREMIX 1 EACH IV SCH ×2 (09:47→21:15)
[2017-01-29] MEDS: PROPOFOL 1,000 MG/100 ML BOTTLE IV SCH ×4 (00:21→23:40)
[2017-01-29] MEDS: ALBUTEROL/IPRATROPIUM 3 ML NEB RESP TX SCH ×6 (02:48→23:30)
[2017-01-29] MEDS: MEROPENEM 1,000 MG in SYRINGE 1 EACH IV SCH ×3 (02:58→18:09)
[2017-01-29] MEDS: methylPREDNISolone SOD SUC 40 MG/1 ML VIAL IV SCH ×3 (02:59→18:10)
[2017-01-29 03:31] LABS: ABG Base Excess 3.6 MMOL/L (-2.5-2.5); ABG HCO3 27.6 MMOL/L (20-26); ABG Oxygen Saturation 99.8 % (95-100); ABG PCO2 34.8 MM HG (35-48); ABG PH 7.491 (7.35-7.45)
[2017-01-29] MEDS: SODIUM CHLORIDE 0.9% 1,000 ML IV SCH ×2 (04:55→04:56)
[2017-01-29 05:52] LABS: Basophils # 0.1 10*3/uL (0.0-0.2); Basophils % 0.6 % (0.0-0.8); Hematocrit 39.8 VOL% (42.0-52.0); Hemoglobin 13.7 GM/DL (14.0-18.0); Immature Granulocytes % 6.9 %; Immature Granulocytes Absolute 1.12 #; Lymphocytes # 1.4 10*3/uL (1.4-4.0); Lymphocytes % 8.4 % (21.2-54.2); Mean Corpuscular HGB Conc 34.4 GM/DL (32-36); Mean Corpuscular Hemoglobin 30 PG (27-34); Mean Corpuscular Volume 87.5 FL (87-102); Mean Platelet Volume 10.7 FL (9.6-12.0); Monocytes # 0.8 10*3/uL (0.11-0.8); Monocytes % 5.1 % (1.7-12.7); NRBC # 0.04 10*3/uL; Neutrophils # 12.8 10*3/uL (1.4-7.4); Platelet Count 184 T/CUMM (130-400); Red Blood Count 4.55 MC/CUMM (3.8-5.5); Red Cell Distribution Width 14.7 % (9.3-17.3); White Blood Count 16.2 T/CUMM (4-12)
[2017-01-29 06:25] LABS: Calcium 8.1 MG/DL (8.5-10.1); Osmolality,Calculated 284.4 MOS/KG (273-304); Potassium 4.2 MMOL/L (3.5-5.1)
[2017-01-29 06:37] LABS: Band Neutrophils 2 % (0-10); Giant Platelets Few; Hypochromasia 1+; Lymphocytes 10 % (20-55); Platelet Estimate Normal; Segmented Neutrophils 84 % (50-85); Total Cells Counted 100
[2017-01-29] MEDS: LEVOTHYROXINE 100 MCG VIAL IV SCH (07:55)
[2017-01-29] MEDS: PANTOPRAZOLE 40 MG VIAL IV SCH (08:01)
[2017-01-29] MEDS: DOCUSATE SODIUM 100 MG CAPSULE PO SCH (09:35)
[2017-01-29] MEDS: DOCUSATE SODIUM 100 MG/10 ML UDCUP PO SCH ×2 (09:41→20:38)
[2017-01-29] MEDS: amLODIPine 5 MG TABLET PO SCH (09:41)
[2017-01-29] MEDS: MEMANTINE 10 MG TABLET PER TUBE SCH ×2 (09:41→21:18)
[2017-01-29] MEDS: ALLOPURINOL 300 MG TABLET PO SCH (09:41)
[2017-01-29] MEDS: CLORAZEPATE 3.75 MG TABLET PO SCH ×2 (09:41→21:18)
[2017-01-29] MEDS: ENOXAPARIN 40 MG/0.4 ML SYRINGE SUBCUT SCH (09:42)
[2017-01-29] MEDS: QUEtiapine 100 MG TABLET PO SCH (09:42)
[2017-01-29] MEDS: LINEZOLID INJ 600 MG in PREMIX 1 EACH IV SCH ×3 (09:42→21:18)
[2017-01-29] MEDS: DONEPEZIL 10 MG TABLET PO SCH (21:18)
[2017-01-30] MEDS: ALBUTEROL/IPRATROPIUM 3 ML NEB RESP TX SCH ×6 (03:10→23:33)
[2017-01-30 03:46] LABS: ABG HCO3 28.9 MMOL/L (20-26); ABG Oxygen Saturation 98.4 % (95-100); ABG PCO2 39.4 MM HG (35-48); ABG PH 7.473 (7.35-7.45); ABG TCO2 24.6 MMOL/L (23-27)
[2017-01-30] MEDS: MEROPENEM 1,000 MG in SYRINGE 1 EACH IV SCH (04:18)
[2017-01-30] MEDS: methylPREDNISolone SOD SUC 40 MG/1 ML VIAL IV SCH ×3 (04:18→18:16)
[2017-01-30 06:41] LABS: Calcium 8.3 MG/DL (8.5-10.1); Osmolality,Calculated 287.4 MOS/KG (273-304); Potassium 4.1 MMOL/L (3.5-5.1)
[2017-01-30] MEDS: LEVOTHYROXINE 100 MCG VIAL IV SCH (06:56)
[2017-01-30] MEDS: PROPOFOL 1,000 MG/100 ML BOTTLE IV SCH ×2 (08:24→23:37)
[2017-01-30] MEDS: PANTOPRAZOLE 40 MG VIAL IV SCH (08:55)
[2017-01-30] MEDS: CEFEPIME 1,000 MG in SYRINGE 1 EACH IV SCH ×2 (09:00→20:23)
[2017-01-30] MEDS: ALLOPURINOL 300 MG TABLET PO SCH (09:00)
[2017-01-30] MEDS: DOCUSATE SODIUM 100 MG/10 ML UDCUP PO SCH ×2 (09:03→20:23)
[2017-01-30] MEDS: ENOXAPARIN 40 MG/0.4 ML SYRINGE SUBCUT SCH (09:04)
[2017-01-30] MEDS: MEMANTINE 10 MG TABLET PER TUBE SCH ×2 (09:04→20:23)
[2017-01-30] MEDS: QUEtiapine 100 MG TABLET PO SCH (09:04)
[2017-01-30] MEDS: amLODIPine 5 MG TABLET PO SCH (09:04)
[2017-01-30] MEDS: CLORAZEPATE 3.75 MG TABLET PO SCH ×2 (09:04→20:23)
[2017-01-30] MEDS: LINEZOLID INJ 600 MG in PREMIX 1 EACH IV SCH ×2 (09:05→20:40)
[2017-01-30] MEDS: DONEPEZIL 10 MG TABLET PO SCH (20:23)
[2017-01-31] MEDS: methylPREDNISolone SOD SUC 40 MG/1 ML VIAL IV SCH ×3 (01:49→17:34)
[2017-01-31] MEDS: ALBUTEROL/IPRATROPIUM 3 ML NEB RESP TX SCH ×6 (03:05→23:43)
[2017-01-31 03:52] LABS: ABG Base Excess 5.6 MMOL/L (-2.5-2.5); ABG HCO3 28.9 MMOL/L (20-26); ABG Oxygen Saturation 97.1 % (95-100); ABG PCO2 37.8 MM HG (35-48); ABG PH 7.502 (7.35-7.45); ABG PO2 85.9 MM HG (80-95); ABG TCO2 30.1 MMOL/L (23-27)
[2017-01-31 05:01] LABS: Basophils # 0.1 10*3/uL (0.0-0.2); Basophils % 0.9 % (0.0-0.8); Hematocrit 41.3 VOL% (42.0-52.0); Hemoglobin 14.4 GM/DL (14.0-18.0); Immature Granulocytes % 11.7 %; Immature Granulocytes Absolute 1.73 #; Lymphocytes # 1.3 10*3/uL (1.4-4.0); Lymphocytes % 8.7 % (21.2-54.2); Mean Corpuscular HGB Conc 34.9 GM/DL (32-36); Mean Corpuscular Hemoglobin 30 PG (27-34); Mean Corpuscular Volume 86.4 FL (87-102); Mean Platelet Volume 10.5 FL (9.6-12.0); Monocytes # 0.9 10*3/uL (0.11-0.8); NRBC # 0.14 10*3/uL; Neutrophils # 10.7 10*3/uL (1.4-7.4); Neutrophils % 72.7 % (38.7-73.9); Platelet Count 221 T/CUMM (130-400); Red Blood Count 4.78 MC/CUMM (3.8-5.5); Red Cell Distribution Width 14.3 % (9.3-17.3); White Blood Count 14.7 T/CUMM (4-12)
[2017-01-31 05:40] LABS: Band Neutrophils 1 % (0-10); Lymphocytes 8 % (20-55); Nucleated Red Blood Cells 1 (0-5); Segmented Neutrophils 81 % (50-85); Total Cells Counted 100
[2017-01-31 05:41] LABS: Hypochromasia 1+; Microcytosis 1+; Platelet Estimate Normal
[2017-01-31 05:43] LABS: Calcium 8.5 MG/DL (8.5-10.1); Magnesium 2.5 MG/DL (1.8-2.4); Osmolality,Calculated 287.4 MOS/KG (273-304); Phosphorous 3.1 MG/DL (2.5-4.9); Potassium 4.4 MMOL/L (3.5-5.1); Prealbumin 39.4 MG/DL (20-40)
[2017-01-31] MEDS: LEVOTHYROXINE 100 MCG VIAL IV SCH (06:29)
[2017-01-31] MEDS ORDERED: RACEPINEPHRINE 0.5 ML NEB RESP TX ONE (08:13)
[2017-01-31] MEDS: CEFEPIME 1,000 MG in SYRINGE 1 EACH IV SCH ×2 (09:00→20:31)
[2017-01-31] MEDS: PROPOFOL 1,000 MG/100 ML BOTTLE IV SCH (09:01)
[2017-01-31] MEDS: DOCUSATE SODIUM 100 MG/10 ML UDCUP PO SCH ×2 (09:30→20:32)
[2017-01-31] MEDS: ALLOPURINOL 300 MG TABLET PO SCH (09:30)
[2017-01-31] MEDS: PANTOPRAZOLE 40 MG VIAL IV SCH (09:30)
[2017-01-31] MEDS: MEMANTINE 10 MG TABLET PER TUBE SCH ×2 (09:30→20:32)
[2017-01-31] MEDS: ENOXAPARIN 40 MG/0.4 ML SYRINGE SUBCUT SCH (09:30)
[2017-01-31] MEDS: CLORAZEPATE 3.75 MG TABLET PO SCH ×2 (09:30→20:32)
[2017-01-31] MEDS: QUEtiapine 100 MG TABLET PO SCH (09:30)
[2017-01-31] MEDS: amLODIPine 5 MG TABLET PO SCH (09:30)
[2017-01-31] MEDS: LINEZOLID INJ 600 MG in PREMIX 1 EACH IV SCH (09:30)
[2017-01-31] MEDS: DONEPEZIL 10 MG TABLET PO SCH (20:32)
[2017-02-01] MEDS: methylPREDNISolone SOD SUC 40 MG/1 ML VIAL IV SCH ×2 (01:28→09:34)
[2017-02-01] MEDS: PROPOFOL 1,000 MG/100 ML BOTTLE IV SCH ×2 (01:29→08:48)
[2017-02-01] MEDS: ALBUTEROL/IPRATROPIUM 3 ML NEB RESP TX SCH ×4 (02:27→15:01)
[2017-02-01 03:31] LABS: ABG Base Excess 6.4 MMOL/L (-2.5-2.5); ABG HCO3 29.3 MMOL/L (20-26); ABG PCO2 36.1 MM HG (35-48); ABG PH 7.527 (7.35-7.45); ABG PO2 87.4 MM HG (80-95); ABG TCO2 30.4 MMOL/L (23-27)
[2017-02-01 04:59] LABS: Basophils # 0.1 10*3/uL (0.0-0.2); Basophils % 0.5 % (0.0-0.8); Hematocrit 43.1 VOL% (42.0-52.0); Hemoglobin 14.4 GM/DL (14.0-18.0); Immature Granulocytes % 12.7 %; Immature Granulocytes Absolute 2.18 #; Lymphocytes % 5.7 % (21.2-54.2); Mean Corpuscular HGB Conc 33.4 GM/DL (32-36); Mean Corpuscular Hemoglobin 30 PG (27-34); Mean Corpuscular Volume 88.9 FL (87-102); Mean Platelet Volume 10.4 FL (9.6-12.0); Monocytes # 0.9 10*3/uL (0.11-0.8); Monocytes % 5.5 % (1.7-12.7); NRBC # 0.14 10*3/uL; Neutrophils % 75.6 % (38.7-73.9); Platelet Count 200 T/CUMM (130-400); Red Blood Count 4.85 MC/CUMM (3.8-5.5); Red Cell Distribution Width 14.6 % (9.3-17.3); White Blood Count 17.2 T/CUMM (4-12)
[2017-02-01 05:21] LABS: Lymphocytes 2 % (20-55); Nucleated Red Blood Cells 1 (0-5); Segmented Neutrophils 91 % (50-85); Total Cells Counted 100
[2017-02-01 05:22] LABS: Giant Platelets Few; Hypochromasia 1+; Macrocytosis Slight; Platelet Estimate Normal; Polychromasia Slight
[2017-02-01 05:37] LABS: Calcium 7.8 MG/DL (8.5-10.1); Magnesium 2.6 MG/DL (1.8-2.4); Osmolality,Calculated 283.7 MOS/KG (273-304); Potassium 5.8 MMOL/L (3.5-5.1)
[2017-02-01] MEDS: LEVOTHYROXINE 100 MCG VIAL IV SCH (06:44)
[2017-02-01] MEDS: ENOXAPARIN 40 MG/0.4 ML SYRINGE SUBCUT SCH (09:30)
[2017-02-01] MEDS: amLODIPine 5 MG TABLET PO SCH (09:30)
[2017-02-01] MEDS: CEFEPIME 1,000 MG in SYRINGE 1 EACH IV SCH (09:30)
[2017-02-01] MEDS: DOCUSATE SODIUM 100 MG/10 ML UDCUP PO SCH (09:30)
[2017-02-01] MEDS: ALLOPURINOL 300 MG TABLET PO SCH (09:30)
[2017-02-01] MEDS: CLORAZEPATE 3.75 MG TABLET PO SCH (09:30)
[2017-02-01] MEDS: QUEtiapine 100 MG TABLET PO SCH (09:30)
[2017-02-01] MEDS: MEMANTINE 10 MG TABLET PER TUBE SCH (09:30)
[2017-02-01] MEDS: PANTOPRAZOLE 40 MG VIAL IV SCH (09:48)
[2017-02-01] MEDS ORDERED: SODIUM POLYSTYRENE SULFATE 15 GM/60 ML BOTTLE PO ONE (11:31)
[2017-02-01 14:13] VITALS: BP 126/62
== END 2017-02-01 16:20 | DRG 207 ==
LOC: N.ED 22:23 → N.EDINP 01-25 05:56 → SUPCPDRO 01-25 05:56 → SUATTDRO 01-25 05:56 → N.ICU 01-25 15:40
PROVIDERS: ADMIT Internal Medicine; ATTEND Internal Medicine

== ENCOUNTER 2017-02-16 02:21 | Inpatient (IN) ==
[2017-02-16 04:12] LABS: Basophils # 0.1 10*3/uL (0.0-0.2); Basophils % 0.5 % (0.0-0.8); Eosinophils # 0.3 10*3/uL (0.0-0.87); Eosinophils % 3.1 % (0.00-10.9); Hematocrit 43.9 VOL% (42.0-52.0); Hemoglobin 14.8 GM/DL (14.0-18.0); Immature Granulocytes % 1.5 %; Immature Granulocytes Absolute 0.14 #; Lymphocytes # 1.7 10*3/uL (1.4-4.0); Mean Corpuscular HGB Conc 33.7 GM/DL (32-36); Mean Corpuscular Hemoglobin 30 PG (27-34); Mean Corpuscular Volume 88.9 FL (87-102); Mean Platelet Volume 10.4 FL (9.6-12.0); Monocytes # 0.6 10*3/uL (0.11-0.8); Monocytes % 6.8 % (1.7-12.7); Neutrophils # 6.4 10*3/uL (1.4-7.4); Neutrophils % 70.1 % (38.7-73.9); Platelet Count 182 T/CUMM (130-400); Red Blood Count 4.94 MC/CUMM (3.8-5.5); Red Cell Distribution Width 15.1 % (9.3-17.3); White Blood Count 9.2 T/CUMM (4-12)
[2017-02-16 04:17] LABS: VBG Base Excess 1.2 MEQ/L (0-4); VBG HCO3 25.5 MEQ/L (24-28); VBG Oxygen Saturation 98.6 %; VBG PCO2 43.7 MMHG (41-51); VBG PH 7.391
[2017-02-16 04:38] LABS: Albumin 2.6 G/DL (3.4-5.0); Bilirubin,Total 0.6 MG/DL (0.2-1.0); Calcium 8.9 MG/DL (8.5-10.1); Potassium 4.2 MMOL/L (3.5-5.1)
[2017-02-16 04:48] LABS: Troponin I Only < 0.015 NG/ML (0.00-0.045)
[2017-02-16] MEDS ORDERED: ALBUTEROL 2.5 MG/3 ML NEB RESP TX PRN (06:52)
[2017-02-16] MEDS ORDERED: SODIUM CHLORIDE 0.9% 1,000 ML IV STA (06:52)
[2017-02-16] MEDS ORDERED: ONDANSETRON 4 MG/2 ML VIAL IV PRN (06:52)
[2017-02-16 07:15] LABS: ABG Base Excess 1.1 MMOL/L (-2.5-2.5); ABG HCO3 25.2 MMOL/L (20-26); ABG Oxygen Saturation 94.9 % (95-100); ABG PCO2 38.3 MM HG (35-48); ABG PH 7.436 (7.35-7.45); ABG PO2 71.5 MM HG (80-95); ABG TCO2 26.4 MMOL/L (23-27)
[2017-02-16 07:39] LABS: Apearance,Urine CLOUDY (Clear); Bacteria,Urine Occasional /HPF (Few); Bilirubin,Urine Negative (Negative); Blood, Urine Large mg/dL (Negative); Glucose,Urine (UA) Negative (Negative); Ketones,Urine Negative (Negative); Mucus,Urine Moderate /LPF (Occasional); Nitrite,Urine Negative (Negative); Protein,Urine Negative; RBC,Urine 166 /HPF (0-4); Urine Color Yellow (Yellow); Urine Specific Gravity 1.018 (1.001-1.035); WBC,Urine 24 /HPF (0-6)
[2017-02-16] MEDS ORDERED: ENOXAPARIN 40 MG/0.4 ML SYRINGE ONE (10:24)
[2017-02-16] MEDS ORDERED: PANTOPRAZOLE 40 MG VIAL IV ONE (10:24)
[2017-02-16] MEDS ORDERED: VANCOMYCIN 1,000 MG VIAL ONE (10:24)
[2017-02-16] MEDS ORDERED: methylPREDNISolone SOD SUC 125 MG/2 ML VIAL ONE (10:24)
[2017-02-16] MEDS: SODIUM CHLORIDE 0.9% 1,000 ML IV SCH ×2 (10:38→18:38)
[2017-02-16] MEDS: ENOXAPARIN 40 MG/0.4 ML SYRINGE SUBCUT SCH (10:38)
[2017-02-16] MEDS: methylPREDNISolone SOD SUC 125 MG/2 ML VIAL IV SCH ×2 (10:38→19:25)
[2017-02-16] MEDS: PANTOPRAZOLE 40 MG VIAL IV SCH (10:39)
[2017-02-16] MEDS: VANCOMYCIN INJ 1,000 MG in SODIUM CHLORIDE 0.9% 250 ML IV SCH (10:40)
[2017-02-16] MEDS ORDERED: VANCOMYCIN INJ 1,000 MG in SODIUM CHLORIDE 0.9% 250 ML IV SCH (11:00)
[2017-02-16] MEDS: ALBUTEROL/IPRATROPIUM 3 ML NEB RESP TX SCH ×3 (11:00→21:08)
[2017-02-16] MEDS ORDERED: SODIUM CHLORIDE 0.9% 100 ML IV ONE (11:33)
[2017-02-16] MEDS ORDERED: PIPERACILLIN/TAZOBACTAM 3,375 MG VIAL IV ONE (11:33)
[2017-02-16] MEDS: PIPERACILLIN/TAZOBACTAM 3,375 MG in SODIUM CHLORIDE 0.9% 100 ML IV SCH ×2 (11:39→23:54)
[2017-02-16] MEDS: QUEtiapine 25 MG TABLET PO SCH (13:04)
[2017-02-16] MEDS: MEMANTINE 5 MG TABLET PO SCH (20:39)
[2017-02-16] MEDS: DONEPEZIL 10 MG TABLET PO SCH (20:39)
[2017-02-16] MEDS: VENLAFAXINE XR 75 MG CAPSULE PO SCH (20:39)
[2017-02-17] MEDS: methylPREDNISolone SOD SUC 125 MG/2 ML VIAL IV SCH ×3 (00:18→17:26)
[2017-02-17] MEDS: SODIUM CHLORIDE 0.9% 1,000 ML IV SCH ×2 (00:33→18:26)
[2017-02-17] MEDS: ALBUTEROL/IPRATROPIUM 3 ML NEB RESP TX SCH ×5 (02:23→23:56)
[2017-02-17 04:06] LABS: Basophils % 0.2 % (0.0-0.8); Hematocrit 36.5 VOL% (42.0-52.0); Hemoglobin 12.5 GM/DL (14.0-18.0); Immature Granulocytes % 1.8 %; Immature Granulocytes Absolute 0.09 #; Lymphocytes # 0.7 10*3/uL (1.4-4.0); Lymphocytes % 13.4 % (21.2-54.2); Mean Corpuscular HGB Conc 34.2 GM/DL (32-36); Mean Corpuscular Hemoglobin 30 PG (27-34); Mean Corpuscular Volume 87.1 FL (87-102); Monocytes # 0.1 10*3/uL (0.11-0.8); Neutrophils # 4.2 10*3/uL (1.4-7.4); Neutrophils % 83.6 % (38.7-73.9); Platelet Count 195 T/CUMM (130-400); Red Blood Count 4.19 MC/CUMM (3.8-5.5); Red Cell Distribution Width 14.8 % (9.3-17.3)
[2017-02-17 04:52] LABS: Bilirubin,Total 0.6 MG/DL (0.2-1.0); Calcium 8.9 MG/DL (8.5-10.1); Magnesium 2.1 MG/DL (1.8-2.4); Potassium 4.2 MMOL/L (3.5-5.1); Total Protein 6.5 G/DL (6.4-8.3)
[2017-02-17 05:07] LABS: Prealbumin 10.5 MG/DL (20-40)
[2017-02-17 05:43] LABS: Hypochromasia 1+; Microcytosis 1+
[2017-02-17 05:44] LABS: Platelet Estimate Adequate
[2017-02-17] MEDS: PANTOPRAZOLE 40 MG VIAL IV SCH (06:13)
[2017-02-17] MEDS: ENOXAPARIN 40 MG/0.4 ML SYRINGE SUBCUT SCH (06:13)
[2017-02-17] MEDS: LEVOTHYROXINE 75 MCG TABLET PO SCH (06:14)
[2017-02-17] MEDS: PIPERACILLIN/TAZOBACTAM 3,375 MG in SODIUM CHLORIDE 0.9% 100 ML IV SCH ×3 (06:27→22:57)
[2017-02-17] MEDS: MEMANTINE 5 MG TABLET PO SCH ×2 (10:17→21:53)
[2017-02-17] MEDS: VENLAFAXINE XR 75 MG CAPSULE PO SCH ×2 (10:17→17:28)
[2017-02-17] MEDS: QUEtiapine 25 MG TABLET PO SCH (10:17)
[2017-02-17] MEDS: VANCOMYCIN INJ 1,000 MG in SODIUM CHLORIDE 0.9% 250 ML IV SCH (15:40)
[2017-02-17] MEDS: DONEPEZIL 10 MG TABLET PO SCH (21:53)
[2017-02-18] MEDS: methylPREDNISolone SOD SUC 125 MG/2 ML VIAL IV SCH ×3 (00:44→17:25)
[2017-02-18] MEDS: SODIUM CHLORIDE 0.9% 1,000 ML IV SCH ×3 (04:35→08:03)
[2017-02-18] MEDS: PANTOPRAZOLE 40 MG VIAL IV SCH (06:23)
[2017-02-18] MEDS: LEVOTHYROXINE 75 MCG TABLET PO SCH (06:24)
[2017-02-18] MEDS: PIPERACILLIN/TAZOBACTAM 3,375 MG in SODIUM CHLORIDE 0.9% 100 ML IV SCH ×3 (06:24→22:25)
[2017-02-18] MEDS: ENOXAPARIN 40 MG/0.4 ML SYRINGE SUBCUT SCH (06:26)
[2017-02-18] MEDS: ALBUTEROL/IPRATROPIUM 3 ML NEB RESP TX SCH ×3 (07:19→19:47)
[2017-02-18 07:22] LABS: Basophils % 0.1 % (0.0-0.8); Hematocrit 34.6 VOL% (42.0-52.0); Hemoglobin 11.5 GM/DL (14.0-18.0); Immature Granulocytes % 2.7 %; Immature Granulocytes Absolute 0.33 #; Lymphocytes # 0.8 10*3/uL (1.4-4.0); Lymphocytes % 6.6 % (21.2-54.2); Mean Corpuscular HGB Conc 33.2 GM/DL (32-36); Mean Corpuscular Hemoglobin 30 PG (27-34); Mean Corpuscular Volume 89.4 FL (87-102); Monocytes # 0.2 10*3/uL (0.11-0.8); Monocytes % 1.5 % (1.7-12.7); Neutrophils # 11.1 10*3/uL (1.4-7.4); Neutrophils % 89.1 % (38.7-73.9); Platelet Count 217 T/CUMM (130-400); Red Blood Count 3.87 MC/CUMM (3.8-5.5); White Blood Count 12.4 T/CUMM (4-12)
[2017-02-18 07:53] LABS: Calcium 8.4 MG/DL (8.5-10.1); Osmolality,Calculated 298.6 MOS/KG (273-304); Potassium 3.6 MMOL/L (3.5-5.1)
[2017-02-18 07:54] LABS: Calcium 8.2 MG/DL (8.5-10.1); Osmolality,Calculated 298.6 MOS/KG (273-304); Potassium 3.6 MMOL/L (3.5-5.1)
[2017-02-18] MEDS: MEMANTINE 5 MG TABLET PO SCH ×2 (08:41→21:16)
[2017-02-18] MEDS: amLODIPine 5 MG TABLET PO SCH (08:41)
[2017-02-18] MEDS: VENLAFAXINE XR 75 MG CAPSULE PO SCH ×2 (08:41→17:25)
[2017-02-18] MEDS: QUEtiapine 25 MG TABLET PO SCH (08:42)
[2017-02-18] MEDS: VANCOMYCIN INJ 1,000 MG in SODIUM CHLORIDE 0.9% 250 ML IV SCH ×2 (17:21→18:21)
[2017-02-18] MEDS: DONEPEZIL 10 MG TABLET PO SCH (21:16)
[2017-02-19] MEDS: ALBUTEROL/IPRATROPIUM 3 ML NEB RESP TX SCH ×5 (00:23→23:40)
[2017-02-19] MEDS: methylPREDNISolone SOD SUC 125 MG/2 ML VIAL IV SCH ×3 (01:46→16:29)
[2017-02-19] MEDS: LEVOTHYROXINE 75 MCG TABLET PO SCH (06:02)
[2017-02-19] MEDS: ENOXAPARIN 40 MG/0.4 ML SYRINGE SUBCUT SCH (06:03)
[2017-02-19] MEDS: PIPERACILLIN/TAZOBACTAM 3,375 MG in SODIUM CHLORIDE 0.9% 100 ML IV SCH ×3 (06:03→22:39)
[2017-02-19] MEDS: PANTOPRAZOLE 40 MG VIAL IV SCH (06:03)
[2017-02-19 06:26] LABS: Basophils % 0.1 % (0.0-0.8); Hematocrit 35.2 VOL% (42.0-52.0); Immature Granulocytes % 7.5 %; Immature Granulocytes Absolute 1.03 #; Lymphocytes # 0.9 10*3/uL (1.4-4.0); Lymphocytes % 6.8 % (21.2-54.2); Mean Corpuscular HGB Conc 34.1 GM/DL (32-36); Mean Corpuscular Hemoglobin 30 PG (27-34); Mean Corpuscular Volume 88.4 FL (87-102); Mean Platelet Volume 10.9 FL (9.6-12.0); Monocytes # 0.4 10*3/uL (0.11-0.8); Monocytes % 2.5 % (1.7-12.7); NRBC # 0.02 10*3/uL; Neutrophils # 11.4 10*3/uL (1.4-7.4); Neutrophils % 83.1 % (38.7-73.9); Platelet Count 237 T/CUMM (130-400); Red Blood Count 3.98 MC/CUMM (3.8-5.5); Red Cell Distribution Width 14.6 % (9.3-17.3); White Blood Count 13.7 T/CUMM (4-12)
[2017-02-19 06:55] LABS: Calcium 8.4 MG/DL (8.5-10.1); Osmolality,Calculated 294.7 MOS/KG (273-304); Potassium 3.5 MMOL/L (3.5-5.1)
[2017-02-19 08:06] LABS: Hypochromasia 2+; Lymphocytes 9 % (20-55); Microcytosis 1+; Segmented Neutrophils 88 % (50-85); Total Cells Counted 100
[2017-02-19 08:07] LABS: Platelet Estimate Adequate
[2017-02-19] MEDS: QUEtiapine 25 MG TABLET PO SCH (08:18)
[2017-02-19] MEDS: VENLAFAXINE XR 75 MG CAPSULE PO SCH ×2 (08:18→16:29)
[2017-02-19] MEDS: amLODIPine 5 MG TABLET PO SCH (08:18)
[2017-02-19] MEDS: MEMANTINE 5 MG TABLET PO SCH ×2 (08:18→22:39)
[2017-02-19] MEDS: VANCOMYCIN INJ 1,000 MG in SODIUM CHLORIDE 0.9% 250 ML IV SCH (12:54)
[2017-02-19] MEDS: DONEPEZIL 10 MG TABLET PO SCH (22:39)
[2017-02-20] MEDS: methylPREDNISolone SOD SUC 125 MG/2 ML VIAL IV SCH ×3 (00:39→17:26)
[2017-02-20 06:18] LABS: Basophils % 0.3 % (0.0-0.8); Hematocrit 36.7 VOL% (42.0-52.0); Hemoglobin 12.6 GM/DL (14.0-18.0); Immature Granulocytes % 13.2 %; Immature Granulocytes Absolute 1.85 #; Lymphocytes # 0.9 10*3/uL (1.4-4.0); Lymphocytes % 6.4 % (21.2-54.2); Mean Corpuscular HGB Conc 34.3 GM/DL (32-36); Mean Corpuscular Hemoglobin 30 PG (27-34); Mean Corpuscular Volume 87.2 FL (87-102); Mean Platelet Volume 11.2 FL (9.6-12.0); Monocytes # 0.4 10*3/uL (0.11-0.8); Monocytes % 2.9 % (1.7-12.7); NRBC # 0.23 10*3/uL; Neutrophils # 10.8 10*3/uL (1.4-7.4); Neutrophils % 77.2 % (38.7-73.9); Platelet Count 244 T/CUMM (130-400); Red Blood Count 4.21 MC/CUMM (3.8-5.5); Red Cell Distribution Width 14.6 % (9.3-17.3)
[2017-02-20] MEDS: VANCOMYCIN INJ 1,000 MG in SODIUM CHLORIDE 0.9% 250 ML IV SCH (06:27)
[2017-02-20] MEDS: PANTOPRAZOLE 40 MG VIAL IV SCH (06:28)
[2017-02-20] MEDS: LEVOTHYROXINE 75 MCG TABLET PO SCH (06:29)
[2017-02-20] MEDS: ENOXAPARIN 40 MG/0.4 ML SYRINGE SUBCUT SCH (06:34)
[2017-02-20 07:00] LABS: Calcium 8.3 MG/DL (8.5-10.1); Osmolality,Calculated 286.4 MOS/KG (273-304); Potassium 3.1 MMOL/L (3.5-5.1)
[2017-02-20 07:16] LABS: Band Neutrophils 3 % (0-10); Hypochromasia 1+; Lymphocytes 5 % (20-55); Nucleated Red Blood Cells 3 (0-5); Platelet Estimate Adequate; Polychromasia Slight; Segmented Neutrophils 85 % (50-85); Total Cells Counted 100
[2017-02-20] MEDS: ALBUTEROL/IPRATROPIUM 3 ML NEB RESP TX SCH ×3 (07:33→20:09)
[2017-02-20] MEDS: PIPERACILLIN/TAZOBACTAM 3,375 MG in SODIUM CHLORIDE 0.9% 100 ML IV SCH ×3 (09:18→23:30)
[2017-02-20] MEDS: MEMANTINE 5 MG TABLET PO SCH ×2 (09:19→23:12)
[2017-02-20] MEDS: amLODIPine 5 MG TABLET PO SCH (09:19)
[2017-02-20] MEDS: VENLAFAXINE XR 75 MG CAPSULE PO SCH ×2 (09:19→17:26)
[2017-02-20] MEDS: QUEtiapine 25 MG TABLET PO SCH (09:20)
[2017-02-20] MEDS ORDERED: POTASSIUM CHLORIDE 20 MEQ TABLET PO ONE (14:55)
[2017-02-20] MEDS: DONEPEZIL 10 MG TABLET PO SCH (23:12)
[2017-02-21] MEDS: ALBUTEROL/IPRATROPIUM 3 ML NEB RESP TX SCH ×4 (00:12→19:44)
[2017-02-21] MEDS: methylPREDNISolone SOD SUC 125 MG/2 ML VIAL IV SCH ×3 (01:08→16:58)
[2017-02-21] MEDS: VANCOMYCIN INJ 1,000 MG in SODIUM CHLORIDE 0.9% 250 ML IV SCH (05:17)
[2017-02-21] MEDS: PANTOPRAZOLE 40 MG VIAL IV SCH (06:47)
[2017-02-21] MEDS: PIPERACILLIN/TAZOBACTAM 3,375 MG in SODIUM CHLORIDE 0.9% 100 ML IV SCH (06:48)
[2017-02-21] MEDS: ENOXAPARIN 40 MG/0.4 ML SYRINGE SUBCUT SCH (06:48)
[2017-02-21] MEDS: LEVOTHYROXINE 75 MCG TABLET PO SCH (06:48)
[2017-02-21 06:52] LABS: Potassium 3.1 MMOL/L (3.5-5.1); Prealbumin 28.1 MG/DL (20-40)
[2017-02-21] MEDS: QUEtiapine 25 MG TABLET PO SCH (11:42)
[2017-02-21] MEDS: VENLAFAXINE XR 75 MG CAPSULE PO SCH ×2 (11:42→16:32)
[2017-02-21] MEDS: amLODIPine 5 MG TABLET PO SCH (11:42)
[2017-02-21] MEDS: MEMANTINE 5 MG TABLET PO SCH ×2 (11:42→20:30)
[2017-02-21] MEDS ORDERED: POTASSIUM CHLORIDE 20 MEQ TABLET PO SCH (17:30)
[2017-02-21] MEDS ORDERED: LORazepam 1 MG TABLET PO ONE (19:40)
[2017-02-21] MEDS ORDERED: LORazepam 2 MG/1 ML VIAL IV ONE (19:47)
[2017-02-21] MEDS: DONEPEZIL 10 MG TABLET PO SCH (20:30)
[2017-02-21] MEDS: POTASSIUM CHLORIDE 20 MEQ/15 ML UDCUP PO SCH (20:30)
[2017-02-21] MEDS ORDERED: HALOPERIDOL 5 MG/ML AMP IV ONE (21:34)
[2017-02-21] MEDS ORDERED: HALOPERIDOL 5 MG/ML AMP IM ONE (21:47)
[2017-02-22] MEDS: methylPREDNISolone SOD SUC 125 MG/2 ML VIAL IV SCH ×3 (00:29→17:00)
[2017-02-22] MEDS: ALBUTEROL/IPRATROPIUM 3 ML NEB RESP TX SCH ×4 (00:43→21:47)
[2017-02-22] MEDS: POTASSIUM CHLORIDE 20 MEQ/15 ML UDCUP PO SCH (01:54)
[2017-02-22 06:35] LABS: Calcium 8.4 MG/DL (8.5-10.1); Osmolality,Calculated 286.4 MOS/KG (273-304); Potassium 3.9 MMOL/L (3.5-5.1)
[2017-02-22] MEDS: LEVOTHYROXINE 75 MCG TABLET PO SCH (08:40)
[2017-02-22] MEDS: MEMANTINE 5 MG TABLET PO SCH (08:40)
[2017-02-22] MEDS: amLODIPine 5 MG TABLET PO SCH (08:40)
[2017-02-22] MEDS: QUEtiapine 25 MG TABLET PO SCH (08:40)
[2017-02-22] MEDS: PANTOPRAZOLE 40 MG VIAL IV SCH (08:53)
[2017-02-22] MEDS: ENOXAPARIN 40 MG/0.4 ML SYRINGE SUBCUT SCH (08:53)
[2017-02-22] MEDS: VENLAFAXINE XR 75 MG CAPSULE PO SCH ×2 (08:56→17:00)
[2017-02-22 16:49] VITALS: BP 115/52
== END 2017-02-22 18:00 | disposition home health service (06) | DRG 177 ==
LOC: N.ED 02:21 → N.EDINP 06:50 → SUATTDRO 06:50 → N.EDINP 16:57 → N.3E 17:01
PROVIDERS: ADMIT Internal Medicine; ATTEND Internal Medicine